=== PATIENT | female | born 1955 | race Caucasian/White ===

== ENCOUNTER 2016-12-23 16:53 | Inpatient (IN) | payer MEDICARE, OTHER ==
[~2016-12-23] VITALS: Ht 154.9 cm; Wt 75.0 kg
[~2016-12-23 16:53] MED LIST changes: -ALEN70TA5 PO; -DIPH25TA64 PO; -EZET10TA26 PO; -IOHEXOL 240 MG/ML 50ML VIAL. ONE; -IOHEXOL 300 MG/ML 75 ML VIAL. IV ONE; -LEVO500T59 PO; -LOSA50TA6 PO; -METR500T PO; -PANT40TA5 PO; -POTA8TAB PO; -SODI44SP NS; -VARE1TAB21 PO
[2016-12-23 18:17] VITALS: BP 116/67
[2016-12-23 18:20] VITALS: BP 116/67
[2016-12-23 18:46] LABS: ALBUMIN 3.3 g/dL (3.4-5.0); CALCIUM 8.7 mg/dL (8.5-10.1); CREATININE 0.9 mg/dL (0.6-1.0); GFR 63.2; POTASSIUM 3.5 mmol/L (3.5-5.1); TOTAL BILIRUBIN 0.2 mg/dL (0.2-1.0); TOTAL PROTEIN 6.6 g/dL (6.4-8.2)
[2016-12-23 18:50] LABS: BASO # 0.1 x10^3/uL (0.0-0.2); BASO % 1 % (0-3); EOS # 0.2 x10^3/uL (0.0-0.7); EOS % 3 % (0-3); HEMATOCRIT 38.5 % (36.0-47.0); HEMOGLOBIN 12.9 g/dL (12.0-15.5); LYMPH # 2.3 x10^3/uL (1.0-4.8); LYMPH % 35 % (24-48); MEAN CORPUSCULAR HEMOGLOBIN 33 pg (25-35); MEAN CORPUSCULAR HGB CONC 33 g/dL (31-37); MEAN CORPUSCULAR VOLUME 100 fL (79-100); MONO # 0.5 x10^3/uL (0.0-1.1); MONO % 8 % (0-9); NEUT # 3.4 x10^3uL (1.8-7.7); NEUT % 53 % (31-73); PLATELET COUNT 287 x10^3/uL (140-400); RED BLOOD COUNT 3.87 x10^6/uL (3.50-5.40); RED CELL DISTRIBUTION WIDTH 15.9 % (11.5-14.5); WHITE BLOOD COUNT 6.4 x10^3/uL (4.0-11.0)
[2016-12-23] MEDS ORDERED: PANT40TA5 PO (20:29)
[2016-12-23] MEDS ORDERED: ALEN70TA5 PO (20:37)
[2016-12-23] MEDS ORDERED: LOSA50TA6 PO (20:37)
[2016-12-23] MEDS ORDERED: VARE1TAB21 PO (20:37)
[2016-12-23] MEDS ORDERED: SODI44SP NS (20:37)
[2016-12-23] MEDS ORDERED: DIPH25TA64 PO (20:37)
[2016-12-23] MEDS ORDERED: EZET10TA26 PO (20:43)
[2016-12-23] MEDS: PRIMIDONE 50 MG TABLET PO SCH (21:00)
[2016-12-23] MEDS: diazePAM 5 MG TABLET PO SCH (21:00)
[2016-12-23] MEDS ORDERED: CYCLOBENZAPRINE 10 MG TABLET. PO PRN (21:00)
[2016-12-23] MEDS: KETOTIFEN FUMARATE 0.025% OPHT SOLUTION BOTTLE. OU SCH (21:00)
[2016-12-23] MEDS ORDERED: BENZONATATE 100 MG CAPSULE. PO PRN (21:00)
[2016-12-23] MEDS ORDERED: ALBUTEROL SULFATE 8GM INHALER. IH PRN (21:00)
[2016-12-23] MEDS ORDERED: SODIUM CHLORIDE 0.65% NASAL SPRAY 45ML BOTTLE. NS PRN (21:00)
[2016-12-23] MEDS ORDERED: ALBUTEROL SULFATE 2.5 MG/3 ML NEBU. NEB PRN (21:15)
[2016-12-23] MEDS: ENOXAPARIN 40 MG/0.4 ML DISP.SYRIN. SQ SCH (21:22)
[2016-12-23] MEDS: HYDROmorphone PF 2 MG/ML VIAL IV PRN (21:23)
[2016-12-23] MEDS: GABAPENTIN 300 MG CAPSULE. PO SCH (21:24)
--- NOTE | 2016-12-23 22:46 | RAD ---
CT HEAD WO CONTRAST dated 12/23/2016 10:49 PM Indication: Headache.Sent previous CT Head from 05/2014 for comparison, headache. Comparison: None Technique: Contiguous axial imaging the head was performed from skull base to vertex. One or more of the following individualized dose reduction techniques were utilized for this examination: 1. Automated exposure control 2. Adjustment of the mA and/or kV according to patient size 3. Use of iterative reconstruction technique Findings: Ventricles and sulci are within normal limits for age. No midline shift or mass effect. Brain parenchyma is of normal attenuation. No hemorrhage or extra-axial collection. Posterior fossa and brainstem unremarkable. Visualized paranasal sinuses and mastoid air cells are clear. No apparent calvarial abnormality. IMPRESSION: No evidence of acute intracranial abnormality. Electronically signed by: Huseyin Ferguson MD (12/23/2016 10:43 PM) [facility]
[2016-12-23 23:27] VITALS: BP 117/71
[2016-12-24] MEDS: HYDROmorphone PF 2 MG/ML VIAL IV PRN ×2 (02:41→06:34)
[2016-12-24] MEDS ORDERED: ONDANSETRON ODT 4 MG TAB.RAPDIS PO PRN (02:45)
[2016-12-24 03:00] VITALS: BP 109/75
[2016-12-24] MEDS ORDERED: IPRATRPIUM/ALBUTEROL 0.5/2.5MG 3 ML NEBU. ONE (05:14)
[2016-12-24] MEDS: LEVOTHYROXINE 88 MCG TABLET PO SCH (05:19)
[2016-12-24] MEDS: ACETAMINOPHEN 325 MG TABLET PO PRN (05:28)
[2016-12-24] MEDS ORDERED: PNEUMOCOCCAL VAX SCREEN. MC PRN (05:30)
[2016-12-24] MEDS ORDERED: Influenza vaccine per PROTOCOL. MC PRN (05:30)
[2016-12-24 05:53] VITALS: BP 130/89
[2016-12-24] MEDS: IPRATRPIUM/ALBUTEROL 0.5/2.5MG 3 ML NEBU. NEB SCH ×5 (05:53→22:39)
[2016-12-24 06:48] LABS: BACTERIA,URINE MOD /HPF (0-FEW); BILIRUBIN,URINE NEG (NEG); CLARITY,URINE CLOUDY; COLOR,URINE YELLOW; GLUCOSE,URINE NEG (NEG); NITRITE,URINE NEG (NEG); SQUAMOUS EPITHELIAL CELL,UR MOD /LPF; UROBILINOGEN,URINE 0.2 mg/dL (0.2 mg/dL)
[2016-12-24 06:49] LABS: HYALINE CASTS, URINE OCC /HPF; YEAST,URINE PRESENT /HPF
[2016-12-24] MEDS: PANTOPRAZOLE 40 MG TABLET. PO SCH (07:30)
[2016-12-24] MEDS: diazePAM 5 MG TABLET PO SCH ×3 (09:00→21:00)
[2016-12-24] MEDS ORDERED: FLU VACC QS2017-18 (36MOS+)/PF 0.5 ML SYRINGE. VAX IM ONE ×2 (09:00)
[2016-12-24] MEDS ORDERED: PNEUMOC CONJ VACC 23-VALENT 0.5 ML VIAL. VAX IM ONE ×2 (09:00)
[2016-12-24] MEDS: PRIMIDONE 50 MG TABLET PO SCH ×3 (09:00→21:00)
[2016-12-24] MEDS ORDERED: VARENICLINE 1 MG TABLET. PO SCH (09:00)
[2016-12-24] MEDS ORDERED: NON FORMULARY ITEM (Tiotropium Bromide (Spiriva) 18 MCG) IH SCH (09:00)
[2016-12-24] MEDS ORDERED: LOSARTAN 50 MG TABLET. PO SCH (09:00)
[2016-12-24] MEDS: GABAPENTIN 300 MG CAPSULE. PO SCH ×3 (09:00→21:00)
[2016-12-24] MEDS: KETOTIFEN FUMARATE 0.025% OPHT SOLUTION BOTTLE. OU SCH ×2 (09:48→20:56)
[2016-12-24] MEDS: IV DEXTROSE 5 %-0.45 % NACL 1,000 ML IV SCH ×2 (10:31→20:43)
[2016-12-24] MEDS: ONDANSETRON PF 4 MG/2 ML VIAL. IV PRN (10:32)
--- NOTE | 2016-12-24 10:41 | RAD ---
Abdomen, 2 views, 12/24/2016: History: Abdominal pain, abnormal CT exam Contrast material from yesterday's CT study has passed into the right colon. The abdominal gas pattern is unremarkable. There is no evidence of organomegaly. No free air is seen in the abdomen. There is mild atelectasis in the lung bases. IMPRESSION: No acute abdominal abnormality is detected.
[2016-12-24 10:54] VITALS: BP 103/65
[2016-12-24] MEDS ORDERED: METHYLNALTREXONE 12 MG/0.6 ML VIAL. SQ ONE (11:00)
[2016-12-24 15:26] VITALS: BP 142/83
[2016-12-24] MEDS: PROMETHAZINE 12.5 MG in IV NORMAL SALINE 50ML 50 ML IV PRN ×2 (16:15→22:26)
[2016-12-24 20:22] VITALS: BP 121/74
[2016-12-24] MEDS: ENOXAPARIN 40 MG/0.4 ML DISP.SYRIN. SQ SCH (20:56)
[2016-12-24] MEDS: TAMSULOSIN 0.4 MG CAP.ER.24H. PO SCH (21:00)
[2016-12-24 22:13] LABS: SODIUM, URINE <60 mmol/L (Not Estab.); UR POTASSIUM 74.2 mmol/L (Not Estab.)
[2016-12-24] MEDS ORDERED: PROMETHAZINE 25 MG/ML VIAL IV ONE (22:15)
[2016-12-24 23:20] VITALS: BP 144/72
--- NOTE | 2016-12-25 01:55 | PN ---
DATE: SUBJECTIVE: A 61-year-old female in with severe diverticulitis of the left lower quadrant. The patient is resting fairly comfortably, but still in quite a bit of pain. The patient's KUB this morning was basically unremarkable for obstruction and she did have some nausea and not passing any gas. OBJECITVE: VITAL SIGNS: The patient's blood pressures 103/65, respiratory rate 20, pulse 100, afebrile. GENERAL: The patient is alert and oriented. LUNGS: Diminished, but clear. CARDIOVASCULAR: Regular sinus rhythm. ABDOMEN: Soft, but there is definite guarding to that left lower quadrant, severe tenderness noted. ASSESSMENT AND PLAN: The patient continues on IV antibiotic therapy and we will continue with evaluation for this severe diverticulitis. Initially when she was in the office, her heart rate was up over 120 ____ she does have guarding in that area of her left lower quadrant. TRUDI CORDERO MD DR: TANISHA/silas JOB#: [id number] / [id number]
[2016-12-25] MEDS: HYDROmorphone PF 2 MG/ML VIAL IV PRN ×3 (02:35→20:45)
[2016-12-25] MEDS: IV DEXTROSE 5 %-0.45 % NACL 1,000 ML IV SCH ×2 (05:26→18:33)
[2016-12-25] MEDS: LEVOTHYROXINE 88 MCG TABLET PO SCH (05:32)
[2016-12-25] MEDS ORDERED: PROMETHAZINE 25 MG/ML VIAL IV ONE (05:48)
[2016-12-25] MEDS: IPRATRPIUM/ALBUTEROL 0.5/2.5MG 3 ML NEBU. NEB SCH ×3 (05:50→20:00)
[2016-12-25] MEDS: PROMETHAZINE 12.5 MG in IV NORMAL SALINE 50ML 50 ML IV PRN (05:56)
[2016-12-25 05:58] VITALS: BP 133/69
[2016-12-25 06:28] LABS: BASO % 0 % (0-3); EOS # 0.1 x10^3/uL (0.0-0.7); EOS % 2 % (0-3); HEMATOCRIT 32.5 % (36.0-47.0); HEMOGLOBIN 10.9 g/dL (12.0-15.5); LYMPH # 1.6 x10^3/uL (1.0-4.8); LYMPH % 37 % (24-48); MEAN CORPUSCULAR HEMOGLOBIN 34 pg (25-35); MEAN CORPUSCULAR HGB CONC 34 g/dL (31-37); MEAN CORPUSCULAR VOLUME 100 fL (79-100); MONO # 0.4 x10^3/uL (0.0-1.1); MONO % 9 % (0-9); NEUT # 2.3 x10^3uL (1.8-7.7); NEUT % 52 % (31-73); PLATELET COUNT 243 x10^3/uL (140-400); RED BLOOD COUNT 3.24 x10^6/uL (3.50-5.40); RED CELL DISTRIBUTION WIDTH 15.6 % (11.5-14.5); WHITE BLOOD COUNT 4.4 x10^3/uL (4.0-11.0)
[2016-12-25 06:35] LABS: CALCIUM 8.4 mg/dL (8.5-10.1); CREATININE 0.8 mg/dL (0.6-1.0); GFR 72.4; POTASSIUM 3.7 mmol/L (3.5-5.1)
[2016-12-25] MEDS: PANTOPRAZOLE 40 MG TABLET. PO SCH (07:30)
[2016-12-25] MEDS: ONDANSETRON PF 4 MG/2 ML VIAL. IV PRN (08:59)
[2016-12-25] MEDS: GABAPENTIN 300 MG CAPSULE. PO SCH ×3 (09:00→21:00)
[2016-12-25] MEDS: diazePAM 5 MG TABLET PO SCH ×3 (09:00→21:00)
[2016-12-25] MEDS: PRIMIDONE 50 MG TABLET PO SCH ×3 (09:00→21:00)
[2016-12-25] MEDS: KETOTIFEN FUMARATE 0.025% OPHT SOLUTION BOTTLE. OU SCH ×2 (09:00→20:44)
[2016-12-25] MEDS: PROCHLORPERAZINE 10 MG/2 ML VIAL. IV PRN ×2 (10:56→18:39)
[2016-12-25] MEDS ORDERED: ENOXAPARIN 40 MG/0.4 ML DISP.SYRIN. SQ SCH (11:00)
[2016-12-25] MEDS: MEROPENEM 1 GM in IV NORMAL SALINE 100ML 100 ML IV SCH ×2 (12:07→20:46)
[2016-12-25 12:28] VITALS: BP 94/55
[2016-12-25 12:50] VITALS: BP 94/61
[2016-12-25 14:42] VITALS: BP 102/64
[2016-12-25 20:10] VITALS: BP 151/83
[2016-12-25] MEDS: ENOXAPARIN 40 MG/0.4 ML DISP.SYRIN. SQ SCH (20:46)
[2016-12-25] MEDS: TAMSULOSIN 0.4 MG CAP.ER.24H. PO SCH (21:00)
[2016-12-25] MEDS ORDERED: ENOXAPARIN ** NOTE DOSE ** SYRINGE SQ SCH (21:00)
[2016-12-25 22:51] VITALS: BP 130/80
--- NOTE | 2016-12-26 00:46 | PN ---
DATE: 12/25/2016 SUBJECTIVE: The patient with severe colitis, diverticulitis of her descending sigmoid area. The patient otherwise seems to be resting fairly comfortable, a little bit better today, although she does not seem to be making as good progress as I would like to see. Consequently, I will go ahead and change her from Levaquin to meropenem. She is on meropenem 1 gram q.12h., discontinue the Levaquin. Otherwise, she has no complaints. Nausea is under better control, so I tried her on Compazine. OBJECTIVE: VITAL SIGNS: Blood pressure 130/70, respiratory rate 18, pulse is still in the low 100 to 110, she is afebrile. LUNGS: Clear. CARDIOVASCULAR: Regular sinus rhythm. ABDOMEN: Soft, diffuse tenderness in the left lower quadrant area, but no rebound noted. She has slight guarding. We will continue to try her on meropenem along with the Flagyl. IMPRESSION: Diverticulitis of the left lower quadrant, severe with nausea. Continue to monitor the patient accordingly on that issue as well. TRUDI CORDERO MD DR: TANISHA/silas JOB#: [id number] / [id number]
[2016-12-26] MEDS: IV DEXTROSE 5 %-0.45 % NACL 1,000 ML IV SCH ×3 (02:00→20:29)
[2016-12-26] MEDS: HYDROmorphone PF 2 MG/ML VIAL IV PRN (02:17)
[2016-12-26] MEDS: MEROPENEM 1 GM in IV NORMAL SALINE 100ML 100 ML IV SCH ×3 (03:24→20:23)
[2016-12-26] MEDS: PROCHLORPERAZINE 10 MG/2 ML VIAL. IV PRN ×2 (05:24→11:50)
[2016-12-26] MEDS: LEVOTHYROXINE 88 MCG TABLET PO SCH (05:24)
[2016-12-26 05:33] VITALS: BP 160/92
[2016-12-26] MEDS: IPRATRPIUM/ALBUTEROL 0.5/2.5MG 3 ML NEBU. NEB SCH ×4 (05:33→20:58)
[2016-12-26] MEDS: PANTOPRAZOLE 40 MG TABLET. PO SCH (07:30)
[2016-12-26 08:34] LABS: HEMATOCRIT 37.2 % (36.0-47.0); HEMOGLOBIN 12.6 g/dL (12.0-15.5); RED BLOOD COUNT 3.77 x10^6/uL (3.50-5.40); RED CELL DISTRIBUTION WIDTH 15.4 % (11.5-14.5); WHITE BLOOD COUNT 3.5 x10^3/uL (4.0-11.0)
[2016-12-26 08:40] LABS: CALCIUM 8.5 mg/dL (8.5-10.1); CREATININE 0.7 mg/dL (0.6-1.0); GFR 84.5; POTASSIUM 3.4 mmol/L (3.5-5.1)
[2016-12-26] MEDS: PRIMIDONE 50 MG TABLET PO SCH ×4 (09:00→20:24)
[2016-12-26] MEDS: KETOTIFEN FUMARATE 0.025% OPHT SOLUTION BOTTLE. OU SCH ×2 (09:00→20:24)
[2016-12-26] MEDS: diazePAM 5 MG TABLET PO SCH ×3 (09:00→20:24)
[2016-12-26] MEDS: GABAPENTIN 300 MG CAPSULE. PO SCH ×3 (09:00→20:24)
[2016-12-26 10:52] VITALS: BP 159/89
[2016-12-26 15:23] VITALS: BP 162/95
[2016-12-26 19:54] VITALS: BP 140/86
--- NOTE | 2016-12-26 19:56 | PN ---
DATE: 12/26/2016 SUBJECTIVE: The patient is a 61-year-old female with severe sigmoid diverticulitis. The patient is resting fairly comfortably, making fairly good progress overall. Pulse still around 100-0105. OBJECTIVE: VITAL SIGNS: Blood pressure 160/90, respiratory rate 20, . GENERAL: Says she is feeling better and looking better overall. LUNGS: Clear. CARDIOVASCULAR: Stable. ABDOMEN: Soft, diffuse tenderness in that left lower quadrant, still a little bit of guarding, but markedly improved. PLAN: We will go ahead and continue on IV antibiotic therapy and make further evaluation on her as indicated. IMPRESSION: Diverticulosis of the sigmoid colon, severe nausea. Continue with IV antibiotic therapy. TRUDI CORDERO MD DR: TANISHA/silas JOB#: [id number] / [id number]
[2016-12-26] MEDS: ENOXAPARIN 40 MG/0.4 ML DISP.SYRIN. SQ SCH (20:24)
[2016-12-26] MEDS: TAMSULOSIN 0.4 MG CAP.ER.24H. PO SCH (20:24)
[2016-12-26 23:28] VITALS: BP 140/70
[2016-12-27] MEDS: MEROPENEM 1 GM in IV NORMAL SALINE 100ML 100 ML IV SCH ×3 (04:11→20:00)
[2016-12-27] MEDS: LEVOTHYROXINE 88 MCG TABLET PO SCH (05:24)
[2016-12-27] MEDS: IPRATRPIUM/ALBUTEROL 0.5/2.5MG 3 ML NEBU. NEB SCH ×4 (05:28→21:00)
[2016-12-27 05:46] VITALS: BP 144/79
[2016-12-27] MEDS: KETOTIFEN FUMARATE 0.025% OPHT SOLUTION BOTTLE. OU SCH ×2 (08:21→20:56)
[2016-12-27] MEDS: PANTOPRAZOLE 40 MG TABLET. PO SCH (08:22)
[2016-12-27] MEDS: PRIMIDONE 50 MG TABLET PO SCH ×3 (08:22→20:59)
[2016-12-27] MEDS: diazePAM 5 MG TABLET PO SCH ×3 (08:22→20:56)
[2016-12-27] MEDS: GABAPENTIN 300 MG CAPSULE. PO SCH ×3 (08:24→20:56)
[2016-12-27] MEDS: ACETAMINOPHEN 325 MG TABLET PO PRN (08:45)
[2016-12-27 08:52] LABS: BASO % 1 % (0-3); EOS % 1 % (0-3); HEMATOCRIT 36.4 % (36.0-47.0); HEMOGLOBIN 12.6 g/dL (12.0-15.5); LYMPH # 0.7 x10^3/uL (1.0-4.8); LYMPH % 21 % (24-48); MEAN CORPUSCULAR HEMOGLOBIN 34 pg (25-35); MEAN CORPUSCULAR HGB CONC 35 g/dL (31-37); MEAN CORPUSCULAR VOLUME 99 fL (79-100); MONO # 0.3 x10^3/uL (0.0-1.1); MONO % 8 % (0-9); NEUT # 2.4 x10^3uL (1.8-7.7); NEUT % 70 % (31-73); PLATELET COUNT 254 x10^3/uL (140-400); RED BLOOD COUNT 3.69 x10^6/uL (3.50-5.40); RED CELL DISTRIBUTION WIDTH 15.2 % (11.5-14.5); WHITE BLOOD COUNT 3.5 x10^3/uL (4.0-11.0)
[2016-12-27 09:05] LABS: CALCIUM 8.7 mg/dL (8.5-10.1); CREATININE 0.7 mg/dL (0.6-1.0); GFR 84.5
[2016-12-27 11:03] VITALS: BP 172/95
--- NOTE | 2016-12-27 11:51 | PN ---
DATE: SUBJECTIVE: A 61-year-old female with severe diverticulitis of the colon. The patient is resting fairly comfortably, making good progress overall. she has diverticulitis, but in any case, the patient is resting fairly comfortably today, pulse is still in the low 100s. OBJECTIVE: VITAL SIGNS: Blood pressure 140/80, temperature 98.4, respiratory rate 16. LUNGS: Clear. CARDIOVASCULAR: Stable. ABDOMEN: Soft. There is very faint tenderness, but still tenderness in that left lower quadrant on palpation, mild guarding, but improved. The patient will continue to be monitored. The blood count looks good. Chemistry low potassium of 3, we will supplement that and we will make further evaluation on that as possible. IMPRESSION: Diverticulitis of the sigmoid colon and will continue to be monitored on IV antibiotic therapy. Hypokalemia, sinus tachycardia, hypertension. Continue on medications. Advance diet, make further evaluation on her as indicated. TRUDI CORDERO MD DR: TANISHA/silas JOB#: [id number] / [id number]
[2016-12-27] MEDS: POTASSIUM CHLORIDE 8 MEQ TABLET.ER. PO SCH ×2 (12:13→20:56)
[2016-12-27 15:16] VITALS: BP 135/82
[2016-12-27 20:31] VITALS: BP 158/70
[2016-12-27] MEDS: TAMSULOSIN 0.4 MG CAP.ER.24H. PO SCH (20:56)
[2016-12-27] MEDS: ENOXAPARIN 40 MG/0.4 ML DISP.SYRIN. SQ SCH (20:56)
[2016-12-27] MEDS: LACTOBACILLUS RHAMNOSUS GG 1 CAPSULE. PO SCH (20:56)
[2016-12-27] MEDS: metroNIDAZOLE 500 MG TABLET PO SCH (20:57)
[2016-12-27] MEDS ORDERED: levoFLOXacin 500 MG TABLET PO SCH (21:00)
[2016-12-28] MEDS: LEVOTHYROXINE 88 MCG TABLET PO SCH (05:08)
[2016-12-28] MEDS: metroNIDAZOLE 500 MG TABLET PO SCH (05:08)
[2016-12-28] MEDS: IPRATRPIUM/ALBUTEROL 0.5/2.5MG 3 ML NEBU. NEB SCH (05:20)
[2016-12-28 06:31] VITALS: BP 126/69
[2016-12-28] MEDS: ACETAMINOPHEN 325 MG TABLET PO PRN (07:07)
[2016-12-28 07:22] LABS: BASO % 1 % (0-3); CALCIUM 8.8 mg/dL (8.5-10.1); CREATININE 0.7 mg/dL (0.6-1.0); EOS # 0.1 x10^3/uL (0.0-0.7); EOS % 2 % (0-3); GFR 84.5; HEMATOCRIT 35.3 % (36.0-47.0); LYMPH # 1.2 x10^3/uL (1.0-4.8); LYMPH % 31 % (24-48); MEAN CORPUSCULAR HEMOGLOBIN 34 pg (25-35); MEAN CORPUSCULAR HGB CONC 34 g/dL (31-37); MEAN CORPUSCULAR VOLUME 99 fL (79-100); MONO # 0.4 x10^3/uL (0.0-1.1); MONO % 12 % (0-9); NEUT # 2.1 x10^3uL (1.8-7.7); NEUT % 55 % (31-73); PLATELET COUNT 261 x10^3/uL (140-400); POTASSIUM 3.1 mmol/L (3.5-5.1); RED BLOOD COUNT 3.56 x10^6/uL (3.50-5.40); RED CELL DISTRIBUTION WIDTH 15.6 % (11.5-14.5); WHITE BLOOD COUNT 3.8 x10^3/uL (4.0-11.0)
[2016-12-28] MEDS ORDERED: POTA8TAB PO (08:04)
[2016-12-28] MEDS ORDERED: METR500T PO (08:04)
[2016-12-28] MEDS ORDERED: LEVO500T59 PO (08:04)
[2016-12-28] MEDS: PANTOPRAZOLE 40 MG TABLET. PO SCH (08:15)
[2016-12-28] MEDS: LACTOBACILLUS RHAMNOSUS GG 1 CAPSULE. PO SCH (08:16)
[2016-12-28] MEDS: PRIMIDONE 50 MG TABLET PO SCH (08:16)
[2016-12-28] MEDS: diazePAM 5 MG TABLET PO SCH (08:16)
[2016-12-28] MEDS: GABAPENTIN 300 MG CAPSULE. PO SCH (08:16)
[2016-12-28] MEDS: KETOTIFEN FUMARATE 0.025% OPHT SOLUTION BOTTLE. OU SCH (08:17)
[2016-12-28] MEDS: POTASSIUM CHLORIDE 8 MEQ TABLET.ER. PO SCH (08:17)
--- NOTE | 2016-12-28 09:59 | DS ---
DATE OF DISCHARGE: HOSPITAL COURSE: The patient seen initially in the office with severe abdominal pain. The patient was brought into the hospital. Imaging done as an outpatient demonstrated severe diverticulitis. She was admitted to the hospital for further evaluation, acute distal descending diverticulitis was noted. The patient was admitted and placed on IV antibiotic therapy. The patient had significant pain in that left lower quadrant area and required IV meropenem as well as Flagyl. The patient made good progress during the rest of her hospitalization and there were no complications noted. Potassium was on the low side, and she will be given additional potassium as an outpatient. Otherwise, she eventually made good progress. She will need some additional potassium as an outpatient and continue to be monitored carefully. IMPRESSION: Diverticulitis of the descending colon, hypokalemia. She will be on a low fiber diet for 2 weeks. High fiber diet. Follow up in the clinic and possible colonoscopy in 7-10 days or sooner as needed. Decreased activity. MRAD. TRUDI CORDERO MD DR: TANISHA/silas JOB#: [id number] / [id number]
== END 2016-12-28 09:15 | disposition home or self-care (01) | DRG 392 ==
LOC: 1 SOUTH 17:46
PROVIDERS: ADMIT Family Medicine; ATTEND Family Medicine
DX: K57.32 Diverticulitis of large intestine without perforation or abscess without bleeding (principal); E87.6 Hypokalemia; I10 Essential (primary) hypertension; K52.9 Noninfective gastroenteritis and colitis, unspecified
CPT/HCPCS: 36415; 70450; 74020; 74177; 80048; 80053; 81001; 82150; 82436; 83605; 83690; 84133; 84300; 85025; 85027; 87040; 87086; 90686; 90732; 94640; 94760; 99406; J0780; J1170; J1650; J1956; J2185; J2212; J2405; J2550; J3490; J7620; Q0162; Q9966; Q9967

== ENCOUNTER → 2016-12-23 | Outpatient (CLI) | payer MEDICARE, OTHER ==
[2015-07-27 14:07] VITALS: BP 97/70
[~2016-12-23] MED LIST: ALBU2.5V5 NEB; ALBU6.7H IH; ALEN70TA5 PO; AZIT250T PO; BENZ100C PO; CETI10TA16 PO; CHOL200074 PO; CIPR250T30 PO; CRESTOR10 MG PO; CYCL-331 PO; DIAZ5TAB4 PO; DIPH25TA64 PO; DOXY100T PO; ESTR1TAB15 PO; EZET10TA26 PO; FLUT1DIS3 IH; GABA-586 PO; HYDR-2679 PO; IOHEXOL 240 MG/ML 50ML VIAL. ONE; IOHEXOL 300 MG/ML 75 ML VIAL. IV ONE; IPRA3AMP IH; LATA2.5D3 EACHEYE; LEVO25TA4 PO; LEVO500T59 PO; LEVO88TA4 PO; LORA10TA3 PO; LOSA100T6 PO; LOSA1TAB25 PO; LOSA50TA6 PO; METH4TAB6 PO; METR500T PO; NEBU1KIT3 MC; NYST1000 PO; OLOP2.5D OU; OMEG1CAP16 PO; OMEP-203 PO; OMEP20CA9 PO; PANT40TA5 PO; POTA8TAB PO; PRED20TA PO; PRIM50TA PO; PROM118S2 PO; SODI44SP NS; SULF1TAB24 PO; TIOT18CA IH; TRAM50TA PO; VARE1TAB21 PO; [UNRECOGNIZED DRUG - CODE] IJ
--- NOTE | 2016-12-23 14:37 | RAD ---
CT abdomen and pelvis with contrast 12/23/2016 Clinical indication: Pelvic pain. Comparison: CTA abdomen 07/26/2014. Technique: Multiple CT images of the abdomen and pelvis were obtained following the intravenous administration of 75 mL Omnipaque 300. PQRS Compliance Statement: One or more of the following individualized dose reduction techniques were utilized for this examination: 1. Automated exposure control 2. Adjustment of the mA and/or kV according to patient size 3. Use of iterative reconstruction technique Findings: Abdomen and pelvis: Heart size is normal. Visualized lung bases are clear. Liver, spleen, gallbladder, adrenal glands and kidneys are unremarkable. There is mild fatty atrophy of the pancreas. No bile duct dilatation. Abdominal aorta is normal in caliber with moderate aortoiliac calcified atheromatous disease. There is a focal outpouching of the distal left abdominal aorta best appreciated on coronal series 3/image 25. Major portal, splenic and visualized mesenteric veins are patent. No retroperitoneal or mesenteric lymphadenopathy. No abdominal free fluid. No bowel obstruction. There is mild descending and sigmoid diverticulosis with stranding and edema adjacent to a diverticula the distal descending colon. No drainable pericolonic fluid collection. No pneumoperitoneum. Urinary bladder unremarkable. Prior hysterectomy with the vaginal cuff unremarkable. There are no destructive osseous lesions. Impression: 1. Acute distal descending diverticulitis. No pericolonic drainable abscess or pneumoperitoneum. 2. Normal caliber abdominal aorta with diffuse aortoiliac calcified atheromatous disease and unchanged outpouching of the distal aspect, likely penetrating atherosclerotic ulcer.
== END | disposition home or self-care (01) ==
LOC: US 13:06
PROVIDERS: ATTEND Nurse Practitioner Family
DX: K57.32 Diverticulitis of large intestine without perforation or abscess without bleeding (principal); I10 Essential (primary) hypertension; I70.0 Atherosclerosis of aorta; F17.200 Nicotine dependence, unspecified, uncomplicated; Z90.710 Acquired absence of both cervix and uterus
CPT/HCPCS: 74177; Q9966; Q9967

== ENCOUNTER → 2017-04-01 | Day surgery (SDC) | payer MEDICARE, OTHER ==
[~2017-04-01] MED LIST changes: +ALEN70TA5 PO; +DIPH25TA64 PO; +EZET10TA26 PO; +IV RINGERS SOLUTION,LACTATED 1,000 ML BAG. IV ONE; +IV RINGERS SOLUTION,LACTATED 1,000 ML IV ONE; +LEVO500T59 PO; +LIDOCAINE 2% PF Vial for OR 5 ML VIAL. ONE; +LOSA50TA6 PO; +METR500T PO; +PANT40TA5 PO; +POTA8TAB PO; +PROPOFOL 20 ML IV ONE; +SODI44SP NS; +VARE1TAB21 PO
[2017-04-01 13:00] VITALS: BP 147/77
== END | disposition home or self-care (01) ==
LOC: SURG 10:09
PROVIDERS: ATTEND Internal Medicine Gastroenterology
DX: K29.70 Gastritis, unspecified, without bleeding (principal); K57.10 Diverticulosis of small intestine without perforation or abscess without bleeding; E55.9 Vitamin D deficiency, unspecified; J44.9 Chronic obstructive pulmonary disease, unspecified; G43.909 Migraine, unspecified, not intractable, without status migrainosus; I10 Essential (primary) hypertension; G47.39 Other sleep apnea; Z98.890 Other specified postprocedural states; Z68.30 Body mass index [BMI] 30.0-30.9, adult; Z88.6 Allergy status to analgesic agent; Z88.0 Allergy status to penicillin; Z88.8 Allergy status to other drugs, medicaments and biological substances; Z90.710 Acquired absence of both cervix and uterus
CPT/HCPCS: 43235; 43239; J2704; J3010; J7120; J2001

== ENCOUNTER → 2017-05-19 | Outpatient (CLI) | payer MEDICARE, OTHER ==
[2017-04-01 13:00] VITALS: BP 147/77
[~2017-05-19] MED LIST changes: +IOHEXOL 240 MG/ML 50ML VIAL. ONE; -IV RINGERS SOLUTION,LACTATED 1,000 ML BAG. IV ONE; -IV RINGERS SOLUTION,LACTATED 1,000 ML IV ONE; -LIDOCAINE 2% PF Vial for OR 5 ML VIAL. ONE; -PROPOFOL 20 ML IV ONE
[2017-05-19] MEDS: IOHEXOL 300 MG/ML 75 ML VIAL. IV ONE (11:20)
[2017-05-19] MEDS: IOHEXOL 240 MG/ML 50ML VIAL. PO ONE (11:20)
--- NOTE | 2017-05-19 11:36 | RAD ---
CT of the abdomen and pelvis with IV contrast. Indication: Gastritis with bleeding. Comparison study: CT of the abdomen and pelvis with contrast December 23, 2016. Technique: Multidetector CT imaging of the abdomen and pelvis was performed following the administration of IV and oral contrast. Findings: Visualized lung bases are unremarkable. Liver and gallbladder are unremarkable. The adrenal glands are within normal limits. Spleen is within normal limits. The bilateral kidneys are grossly unremarkable. The pancreas is atrophic in appearance is unremarkable. No significant gastric wall thickening is identified. Contrast traverses the stomach into the small bowel. There is no evidence of bowel obstruction. No acute inflammatory changes are appreciated. No free fluid or free air is seen in the abdomen or pelvis. Distal colonic diverticulosis is noted. Enteric contrast did not reach the large bowel. The bladder is grossly unremarkable. Hysterectomy noted. No evidence of acute osseous abnormality is identified. Impression: No evidence of acute intra-abdominal abnormality is identified. PQRS Compliance Statement: One or more of the following individualized dose reduction techniques were utilized for this examination: 1. Automated exposure control 2. Adjustment of the mA and/or kV according to patient size 3. Use of iterative reconstruction technique
== END | disposition home or self-care (01) ==
LOC: CT 10:05
PROVIDERS: ATTEND Family Medicine
DX: G25.0 Essential tremor (principal); K29.01 Acute gastritis with bleeding; K57.30 Diverticulosis of large intestine without perforation or abscess without bleeding; I10 Essential (primary) hypertension; Z87.891 Personal history of nicotine dependence
CPT/HCPCS: 74177; Q9966; Q9967

== ENCOUNTER → 2017-06-03 | Day surgery (SDC) | payer MEDICARE, OTHER ==
[~2017-06-03] MED LIST changes: +ALBUTEROL SULFATE 2.5 MG/3 ML NEBU. NEB PRN; +ATROPINE 0.5 MG/5 ML DISP.SYRIN. IV PRN; +ERYT250C8 PO; -IOHEXOL 240 MG/ML 50ML VIAL. ONE; +IV RINGERS SOLUTION,LACTATED 1,000 ML IV SCH; +LIDOCAINE 2% PF Vial for OR 5 ML VIAL. ONE; +MELO7.5T29 PO; +NALOXONE 0.4 MG/ML VIAL. IV PRN; +ONDANSETRON PF 4 MG/2 ML VIAL. IV PRN; +PROPOFOL 0 ML IV ONE; +PROPOFOL 20 ML IV ONE; +diphenhydrAMINE 50 MG/ML VIAL IV PRN
[2017-06-03 11:30] VITALS: BP 131/81
== END | disposition home or self-care (01) ==
LOC: SURG 08:41
PROVIDERS: ATTEND Internal Medicine Gastroenterology
DX: K57.30 Diverticulosis of large intestine without perforation or abscess without bleeding (principal); K64.8 Other hemorrhoids; I10 Essential (primary) hypertension; G43.909 Migraine, unspecified, not intractable, without status migrainosus; Z87.891 Personal history of nicotine dependence; J44.9 Chronic obstructive pulmonary disease, unspecified; M79.7 Fibromyalgia; Z87.19 Personal history of other diseases of the digestive system; Z88.8 Allergy status to other drugs, medicaments and biological substances; Z72.89 Other problems related to lifestyle; Z88.0 Allergy status to penicillin; Z90.710 Acquired absence of both cervix and uterus; Z98.890 Other specified postprocedural states; Z79.899 Other long term (current) drug therapy
CPT/HCPCS: 45380; J2704; J7120; 45378; J2001

== ENCOUNTER → 2017-07-07 | Outpatient (CLI) | payer MEDICARE, OTHER ==
[2017-06-03 11:30] VITALS: BP 131/81
[~2017-07-07] MED LIST changes: -ALBUTEROL SULFATE 2.5 MG/3 ML NEBU. NEB PRN; -ATROPINE 0.5 MG/5 ML DISP.SYRIN. IV PRN; -IV RINGERS SOLUTION,LACTATED 1,000 ML IV SCH; -LIDOCAINE 2% PF Vial for OR 5 ML VIAL. ONE; -NALOXONE 0.4 MG/ML VIAL. IV PRN; -ONDANSETRON PF 4 MG/2 ML VIAL. IV PRN; -PROPOFOL 0 ML IV ONE; -PROPOFOL 20 ML IV ONE; +SINCALIDE 1.5 MCG in IV NORMAL SALINE 50ML 30 ML IV ONE; -diphenhydrAMINE 50 MG/ML VIAL IV PRN
--- NOTE | 2017-07-07 14:43 | RAD ---
HEPATOBILIARY SCAN WITH EJECTION FRACTION Indication: Intermittent chronic bloating and abdominal pain Comparison: CT abdomen pelvis May 19, 2017. Procedure: Serial static images are obtained of the liver and biliary system in frontal and right lateral projections following IV administration of 5.5 mCi of 99 M technetium Choletec. After filling the gallbladder, 1.5 mcg of Kinevac was administered intravenously and the gallbladder ejection fraction was measured. Findings: There is homogeneous distribution throughout the liver. There is normal filling of the gallbladder and normal emptying into the biliary system and small bowel. The gallbladder ejection fraction measures 88% (normal gallbladder EF is 35% or greater). Impression: Normal hepatobiliary scan and ejection fraction. Electronically signed by: Huseyin Avila MD (07/07/2017 2:40 PM) [place] [id number]
== END | disposition home or self-care (01) ==
LOC: NM 10:18
PROVIDERS: ATTEND Internal Medicine Gastroenterology
DX: R10.84 Generalized abdominal pain (principal); E55.9 Vitamin D deficiency, unspecified; E78.00 Pure hypercholesterolemia, unspecified; E03.9 Hypothyroidism, unspecified; J44.9 Chronic obstructive pulmonary disease, unspecified
CPT/HCPCS: 78226; 96374; 96375; A9537; J2805

== ENCOUNTER → 2017-07-26 | Outpatient (CLI) | payer OTHER ==
[2017-06-03 11:30] VITALS: BP 131/81
[~2017-07-26] MED LIST changes: -SINCALIDE 1.5 MCG in IV NORMAL SALINE 50ML 30 ML IV ONE
--- NOTE | 2017-07-26 12:21 | RAD ---
CT HEAD INDICATION: AMBLYOPIA, TREMORS COMPARISON: 12/23/2016 TECHNIQUE: 5 mm contiguous axial images were obtained from the skull base to the vertex Exposure: One or more of the following individualized dose reduction techniques were utilized for this examination: 1. Automated exposure control 2. Adjustment of the mA and/or kV according to patient size 3. Use of iterative reconstruction technique FINDINGS: No abnormal attenuation within the brain parenchyma. No evidence of acute intracranial hemorrhage. No extra-axial fluid collections. No mass effect or midline shift. Ventricular size is appropriate. Basal cisterns are patent. No fractures identified.Carnes-white differentiation is preserved.Globes and orbits are within normal limits. Paranasal sinuses and mastoid air cells are clear. IMPRESSION: Unremarkable CT examination of the head without contrast, as above. Specifically, no evidence of an acute intracranial abnormality. Electronically signed by: Gm De La Cruz MD (07/26/2017 12:17 PM) [id number]
== END | disposition home or self-care (01) ==
LOC: CT 11:29
PROVIDERS: ATTEND Family Medicine
DX: G25.0 Essential tremor (principal); G25.2 Other specified forms of tremor; H53.043 Amblyopia suspect, bilateral
CPT/HCPCS: 70450

== ENCOUNTER → 2017-10-15 | Outpatient (CLI) | payer MEDICARE, MEDICAID ==
[2017-06-03 11:30] VITALS: BP 131/81
[~2017-10-15] MED LIST changes: +BUPIVACAINE MPF 0.25% 30 ML VIAL. ONE; +DEXAMETHASONE SOD PHOS 4 MG/ML VIAL ONE; +IOHEXOL 300 MG/ML 50 ML VIAL. ONE; -IPRA3AMP IH; +IPRA3AMP29 IH; +LIDOCAINE 1% PF 30 ML VIAL. ONE; -LOSA100T6 PO; +LOSA100T7 PO; -LOSA50TA6 PO; +LOSA50TA7 PO; -PROM118S2 PO; +PROM118S5 PO
== END | disposition home or self-care (01) ==
LOC: SURG 08:42
PROVIDERS: ATTEND Anesthesiology Pain Medicine
DX: M54.16 Radiculopathy, lumbar region (principal); Z79.2 Long term (current) use of antibiotics; Z79.899 Other long term (current) drug therapy; J44.9 Chronic obstructive pulmonary disease, unspecified; Z72.0 Tobacco use; Z90.710 Acquired absence of both cervix and uterus; Z98.890 Other specified postprocedural states; Z88.0 Allergy status to penicillin; Z88.6 Allergy status to analgesic agent; Z88.8 Allergy status to other drugs, medicaments and biological substances; Z91.018 Allergy to other foods
CPT/HCPCS: 64483; 64484; J1100; J2001; J3490; Q9967

== ENCOUNTER → 2018-01-07 | Outpatient (CLI) | payer MEDICARE, OTHER ==
[2017-06-03 11:30] VITALS: BP 131/81
[~2018-01-07] MED LIST changes: -IOHEXOL 300 MG/ML 50 ML VIAL. ONE; -LOSA50TA7 PO; +LOSA50TA86 PO
== END | disposition home or self-care (01) ==
LOC: SURG 11:50
PROVIDERS: ATTEND Anesthesiology Pain Medicine
DX: M47.816 Spondylosis without myelopathy or radiculopathy, lumbar region (principal); G89.29 Other chronic pain; F11.20 Opioid dependence, uncomplicated; M51.36 Other intervertebral disc degeneration, lumbar region; F41.9 Anxiety disorder, unspecified
CPT/HCPCS: 64493; 64494; J1100; J2001; J3490

== ENCOUNTER → 2018-01-21 | Outpatient (CLI) | payer MEDICARE, MEDICAID ==
[2017-06-03 11:30] VITALS: BP 131/81
[~2018-01-21] MED LIST changes: +ALBU2.5V8 IH; -ALBU6.7H IH; +DEXAMETHASONE SOD PHOS 10 MG/ML VIAL ONE; -DEXAMETHASONE SOD PHOS 4 MG/ML VIAL ONE; +LOSA100T14 PO; -LOSA100T7 PO
== END | disposition home or self-care (01) ==
LOC: SURG 11:57
PROVIDERS: ATTEND Anesthesiology Pain Medicine
DX: M47.816 Spondylosis without myelopathy or radiculopathy, lumbar region (principal); J44.9 Chronic obstructive pulmonary disease, unspecified; Z90.710 Acquired absence of both cervix and uterus; Z88.0 Allergy status to penicillin; Z88.6 Allergy status to analgesic agent; Z72.0 Tobacco use; Z79.2 Long term (current) use of antibiotics; Z79.899 Other long term (current) drug therapy; Z98.890 Other specified postprocedural states; Z88.8 Allergy status to other drugs, medicaments and biological substances; Z91.018 Allergy to other foods
CPT/HCPCS: 64493; 64494; J1100; J2001; J3490; 77002

== ENCOUNTER → 2018-03-04 | Day surgery (SDC) | payer MEDICARE, MEDICAID ==
[~2018-03-04] MED LIST changes: +BUPIVACAINE MPF 0.25% 10 ML VIAL. ONE; -BUPIVACAINE MPF 0.25% 30 ML VIAL. ONE; -DEXAMETHASONE SOD PHOS 10 MG/ML VIAL ONE; +MIDAZOLAM HCL PF 2 MG/2 ML VIAL. IV ONE; +MIDAZOLAM HCL PF 2 MG/2 ML VIAL. ONE; +methylPREDNISolone ACETATE 40 MG/ML VIAL. ONE
[2018-03-04 10:30] VITALS: BP 159/89
== END | disposition home or self-care (01) ==
LOC: SURG 08:06
PROVIDERS: ATTEND Anesthesiology Pain Medicine
DX: M47.816 Spondylosis without myelopathy or radiculopathy, lumbar region (principal); J44.9 Chronic obstructive pulmonary disease, unspecified; Z72.0 Tobacco use; Z79.2 Long term (current) use of antibiotics; Z79.899 Other long term (current) drug therapy; Z88.6 Allergy status to analgesic agent; Z88.8 Allergy status to other drugs, medicaments and biological substances; Z98.890 Other specified postprocedural states; Z90.710 Acquired absence of both cervix and uterus; Z88.0 Allergy status to penicillin; Z91.018 Allergy to other foods
CPT/HCPCS: 64635; 64636; 99152; J1030; J2001; J2250; J3010; J3490

== ENCOUNTER → 2018-04-08 | Outpatient (CLI) | payer MEDICARE, MEDICAID ==
[2018-03-04 10:30] VITALS: BP 159/89
[~2018-04-08] MED LIST changes: -ALEN70TA5 PO; +ALEN70TA6 PO; -BUPIVACAINE MPF 0.25% 10 ML VIAL. ONE; -EZET10TA26 PO; +EZET10TA49 PO; +HYDR-3165 PO; -LIDOCAINE 1% PF 30 ML VIAL. ONE; -MIDAZOLAM HCL PF 2 MG/2 ML VIAL. IV ONE; -MIDAZOLAM HCL PF 2 MG/2 ML VIAL. ONE; -methylPREDNISolone ACETATE 40 MG/ML VIAL. ONE
== END | disposition home or self-care (01) ==
LOC: SURG 08:25
PROVIDERS: ATTEND Anesthesiology Pain Medicine
DX: M47.816 Spondylosis without myelopathy or radiculopathy, lumbar region (principal); F11.20 Opioid dependence, uncomplicated; G89.29 Other chronic pain
CPT/HCPCS: 99214

== ENCOUNTER → 2018-05-10 | Outpatient (CLI) | payer MEDICARE, MEDICAID ==
[2018-03-04 10:30] VITALS: BP 159/89
[2018-05-10 10:06] LABS: AMPHETAMINE/METHAMPHETAMINE NEG (NEG); BARBITURATES POS (NEG); BENZODIAZEPINES POS (NEG); CANNABINOIDS NEG (NEG); COCAINE NEG (NEG); METHADONE NEG (NEG); OPIATES POS (NEG); PHENCYCLIDINE NEG (NEG)
== END | disposition home or self-care (01) ==
LOC: SURG 09:22
PROVIDERS: ATTEND Anesthesiology
DX: M47.816 Spondylosis without myelopathy or radiculopathy, lumbar region (principal); F11.20 Opioid dependence, uncomplicated; G89.4 Chronic pain syndrome
CPT/HCPCS: 36415; 80307; 99214

== ENCOUNTER 2018-06-27 17:29 | Emergency (ER) | payer MEDICARE, MEDICAID ==
[~2018-06-27] VITALS: Ht 154.9 cm; Wt 64.9 kg
[~2018-06-27 17:29] MED LIST changes: -HYDR-3165 PO
[2018-06-27 17:44] VITALS: BP 115/62
--- NOTE | 2018-06-27 17:57 | PHYS DOC ---
Past History Past Medical History: High Cholesterol, Hypertension, Hypothyroid, Other Past Surgical History: , Hysterectomy Alcohol Use: None Drug Use: None Adult General Chief Complaint Chief Complaint: FOOT INJURY PAIN HPI HPI 63-year-old female presents with right foot and ankle pain. The patient went to stand up and go to the restroom on her foot rotated medially and the patient fell to the ground. She also landed on her foot when she fell. She then manually straighten her ankle out with her hands. She is able to stand up and walk on her heel, she puts pressure on the front of her foot is very painful. She believes that she heard a popping sound as she fell. It is very tender on the lateral part of her ankle just anterior to the malleolus. She denies any other injuries or complaints. She did not hit her head or lose consciousness. Review of Systems Review of Systems Constitutional: Denies fever or chills [] Eyes: Denies change in visual acuity, redness, or eye pain [] HENT: Denies nasal congestion or sore throat [] Respiratory: Denies cough or shortness of breath [] Cardiovascular: No additional information not addressed in HPI [] GI: Denies abdominal pain, nausea, vomiting, bloody stools or diarrhea [] : Denies dysuria or hematuria [] Musculoskeletal: Right ankle pain[] Integument: Denies rash or skin lesions [] Neurologic: Denies headache, focal weakness or sensory changes [] Endocrine: Denies polyuria or polydipsia [] All other systems were reviewed and found to be within normal limits, except as documented in this note. Allergies Allergies Allergies Coded Allergies Type Severity Reaction Last Updated Verified Beta-Blockers (Beta-Adrenergic Bloc Allergy Severe 12/21/13 Yes orange juice Allergy Severe Swelling 12/20/13 Yes rosuvastatin Allergy Severe patient states crestor seals throat shut 12/22/13 Yes Penicillins Allergy Intermediate 12/22/13 Yes alprazolam Allergy Intermediate 12/22/13 Yes atorvastatin Allergy Intermediate 12/22/13 Yes fluticasone Allergy Intermediate 12/22/13 Yes propranolol Allergy Intermediate 12/22/13 Yes tramadol Allergy Intermediate 03/26/14 Yes metoclopramide Allergy Unknown 05/26/17 Yes Physical Exam Physical Exam Constitutional: Well developed, well nourished, no acute distress, non-toxic appearance. [] HENT: Normocephalic, atraumatic, bilateral external ears normal, oropharynx moist, no oral exudates, nose normal. [] Eyes: PERRLA, EOMI, conjunctiva normal, no discharge. [] Neck: Normal range of motion, no tenderness, supple, no stridor. [] Cardiovascular:Heart rate regular rhythm, no murmur [] Lungs & Thorax: Bilateral breath sounds clear to auscultation [] Abdomen: Bowel sounds normal, soft, no tenderness, no masses, no pulsatile masses. [] Skin: Warm, dry, no erythema, no rash. [] Back: No tenderness, no CVA tenderness. [] Extremities: Tenderness over the right lateral malleolus, no obvious deformity or significant swelling[] Neurologic: Alert and oriented X 3, normal motor function, normal sensory function, no focal deficits noted. Fine upper extremity tremor[] Psychologic: Affect normal, judgement normal, mood normal. [] Current Patient Data Vital Signs Vital Signs Date Time Temp Pulse Resp B/P (MAP) Pulse Ox O2 Delivery O2 Flow Rate FiO2 06/27/18 17:44 98.2 93 18 97 Room Air EKG EKG [] Radiology/Procedures Radiology/Procedures [] Impressions: Preliminary interpretation of ankle x-ray: No acute fracture or dislocation is seen. Course & Med Decision Making Course & Med Decision Making Pertinent Labs and Imaging studies reviewed. (See chart for details) The patient's x-rays negative for fracture. I believe she has a sprained ankle. We will place her in an air splint. She is stable for discharge at this time. She has further complications she will follow up with her PCP or orthopedics. I will also discharge the patient with 10 Rincon 5/325 for pain. [] Dragon Disclaimer Dragon Disclaimer This electronic medical record was generated, in whole or in part, using a voice recognition dictation system. Departure Departure: Disposition: 01 HOME, SELF-CARE Condition: STABLE Referrals: TRUDI CORDERO MD (PCP) Patient Instructions: Ankle Sprain, Acute, with Phase I Re[facility] Scripts Hydrocodone Bit/Acetaminophen (NORCO 5-325 TABLET) 1 Each Tablet 1 TAB PO PRN Q6HRS PRN for PAIN, #10 TAB 0 Refills Prov: TEREZA JARQUIN DO 06/27/18 TEREZA JARQUIN DO June 27, 2018 17:57
[2018-06-27] MEDS ORDERED: HYDR-3165 PO (18:02)
[2018-06-27] MEDS ORDERED: HYDROcodone/APAP 5/325MG 1 TAB TABLET PO ONE (18:30)
--- NOTE | 2018-06-27 20:09 | RAD ---
3 view right ankle 06/27/2017 Clinical indication: Fall with right ankle pain. COMPARISON: None. FINDINGS: No acute fracture or traumatic malalignment. Joint spaces maintained. Mild medial ankle osteoarthritis. IMPRESSION: No acute osseous abnormality. Electronically signed by: Noah Brian MD (06/27/2018 8:06 PM) [facility]
== END 2018-06-27 18:10 | disposition home or self-care (01) ==
LOC: ER 17:29
DX: S93.401A Sprain of unspecified ligament of right ankle, initial encounter (principal); E78.00 Pure hypercholesterolemia, unspecified; I10 Essential (primary) hypertension; E03.9 Hypothyroidism, unspecified; Z88.8 Allergy status to other drugs, medicaments and biological substances; Z88.0 Allergy status to penicillin; Z88.6 Allergy status to analgesic agent; Z91.018 Allergy to other foods; W18.39XA Other fall on same level, initial encounter; Y93.89 Activity, other specified; Y92.89 Other specified places as the place of occurrence of the external cause; Y99.8 Other external cause status
CPT/HCPCS: 73610; 99284

== ENCOUNTER 2018-09-18 11:46 | Emergency (ER) | payer MEDICARE, MEDICAID ==
[~2018-09-18] VITALS: Ht 154.9 cm; Wt 64.3 kg
[~2018-09-18 11:46] MED LIST changes: +HYDR-3165 PO; +OMEP20CA10 PO; -OMEP20CA9 PO
[2018-09-18] MEDS ORDERED: IV NORMAL SALINE 1,000ML 1,000 ML IV SCH (12:09)
[2018-09-18 12:19] LABS: BASO % 1 % (0-3); EOS # 0.1 x10^3/uL (0.0-0.7); EOS % 3 % (0-3); HEMATOCRIT 41.9 % (36.0-47.0); HEMOGLOBIN 13.6 g/dL (12.0-15.5); LYMPH # 1.2 x10^3/uL (1.0-4.8); LYMPH % 29 % (24-48); MEAN CORPUSCULAR HEMOGLOBIN 33 pg (25-35); MEAN CORPUSCULAR HGB CONC 32 g/dL (31-37); MEAN CORPUSCULAR VOLUME 101 fL (79-100); MONO # 0.4 x10^3/uL (0.0-1.1); MONO % 9 % (0-9); NEUT # 2.5 x10^3uL (1.8-7.7); NEUT % 59 % (31-73); PLATELET COUNT 212 x10^3/uL (140-400); RED BLOOD COUNT 4.15 x10^6/uL (3.50-5.40); WHITE BLOOD COUNT 4.2 x10^3/uL (4.0-11.0)
[2018-09-18 12:36] LABS: ALBUMIN 3.6 g/dL (3.4-5.0); CREATININE 0.8 mg/dL (0.6-1.0); DIRECT BILIRUBIN 0.1 mg/dL (0.0-0.2); MAGNESIUM 2.1 mg/dL (1.8-2.4); POTASSIUM 4.4 mmol/L (3.5-5.1); TOTAL BILIRUBIN 0.2 mg/dL (0.2-1.0); TOTAL PROTEIN 6.9 g/dL (6.4-8.2)
--- NOTE | 2018-09-18 12:46 | RAD ---
RS Compliance Statement: One or more of the following individualized dose reduction techniques were utilized for this examination: 1. Automated exposure control 2. Adjustment of the mA and/or kV according to patient size 3. Use of iterative reconstruction technique CT HEAD WITHOUT CONTRAST History: Expressive aphasia. Comparison: CT head without contrast July 26, 2017. Technique: Axial images are obtained of the head from the skull base through the vertex without IV contrast. Findings: No mass-effect, midline shift, extra-axial fluid collection, hemorrhage, or obvious acute infarction is identified. Basilar cisterns are patent. Density near the distal right ICA is similar to prior study and may be due to partial volume averaging from the sella. The ventricles and sulci are normal for patient age. Bone windows demonstrate no acute calvarial abnormality. The visualized paranasal sinuses are clear. Mastoid air cells are well aerated. IMPRESSION: No acute intracranial abnormality. Electronically signed by: Joselito Blackwood MD (09/18/2018 12:43 PM) [facility]
[2018-09-18 14:05] LABS: BACTERIA,URINE 0 /HPF (0-FEW); BILIRUBIN,URINE NEG (NEG); CLARITY,URINE CLEAR; COLOR,URINE YELLOW; GLUCOSE,URINE NEG (NEG); NITRITE,URINE NEG (NEG); RBC,URINE 0 /HPF (0-2); SQUAMOUS EPITHELIAL CELL,UR FEW /LPF; UROBILINOGEN,URINE 0.2 mg/dL (0.2 mg/dL); WBC,URINE 0 /HPF (0-4)
[2018-09-18] MEDS ORDERED: IOHEXOL 300 MG/ML 75 ML VIAL. IV ONE (14:30)
[2018-09-18 14:42] VITALS: BP 156/93
--- NOTE | 2018-09-18 14:48 | RAD ---
PQRS Compliance Statement: One or more of the following individualized dose reduction techniques were utilized for this examination: 1. Automated exposure control 2. Adjustment of the mA and/or kV according to patient size 3. Use of iterative reconstruction technique CT ABD PELV W/ IV CONTRST ONLY Clinical Indication: Left lower quadrant abdominal pain. Comparison: CT abdomen and pelvis with contrast, May 19, 2017. Technique: Helical CT imaging of the abdomen and pelvis is performed after 75 cc of Omnipaque 300 IV contrast. Oral contrast not given. Findings: Lung bases are clear. Cardiac size normal. Only the inferior most heart is imaged. Liver, gallbladder, spleen, pancreas, adrenal glands, and kidneys are normal. Moderate atherosclerotic calcification of the abdominal aorta. No aneurysm. No obvious abnormality of the stomach. No dilated small bowel. There is distal colon diverticulosis. Appendix not identified, no secondary signs of appendicitis. There is stool in the proximal colon. There is no colon wall thickening. No abdominal adenopathy or free fluid. Urinary bladder is normal. Hysterectomy. No pelvic free fluid. Disc space narrowing L4/L5. IMPRESSION: 1. No acute abdominal or pelvic abnormality. 2. Distal colon diverticulosis. Electronically signed by: Joselito Blackwood MD (09/18/2018 2:45 PM) [facility]
[2018-09-18] MEDS ORDERED: KETOROLAC 15 MG/ML VIAL. IV ONE (14:55)
--- NOTE | 2018-09-18 14:55 | PHYS DOC ---
Past History Past Medical History: High Cholesterol, Hypertension, Hypothyroid, Other Past Surgical History: , Hysterectomy Alcohol Use: None Drug Use: None Adult General Chief Complaint Chief Complaint: WEAKNESS/GENERALIZED HPI HPI Patient is a 63-year-old female who presents with complaint of lower extremity weakness, stating that she had fallen at home because her legs felt rubbery and she felt like she was not able to support herself with her legs. She states that she had laid on the floor for approximately an hour and then she was able to get to her phone and called her daughter who ultimately called 911. She denies any lateralizing weakness. She denies any headache. She does complain of some left lower abdominal discomfort and wonders if she could have diverticulitis. She rates that pain at a 3-4 out of 10. She denies any chest pain or shortness of breath and also denies fever.[] Review of Systems Review of Systems Constitutional: Denies fever or chills [] Respiratory: Denies cough or shortness of breath [] Cardiovascular: No additional information not addressed in HPI [] GI: Complains of left lower abdominal pain without vomiting or diarrhea [] : Denies dysuria or hematuria [] Neurologic: Denies headache, focal weakness or sensory changes [] All other systems were reviewed and found to be within normal limits, except as documented in this note. Current Medications Current Medications Current Medications Medications (Trade) Dose Ordered Sig/Mahad Start Time Stop Time Status Last Admin Dose Admin Iohexol (Omnipaque 300 Mg/ml) 75 ml 1X ONCE 09/18/18 14:30 09/18/18 14:31 DC 09/18/18 14:23 75 ML Ketorolac Tromethamine (Toradol 15mg Vial) 15 mg 1X ONCE 09/18/18 14:55 09/18/18 14:56 09/18/18 14:45 15 MG Sodium Chloride 1,000 ml @ 1,000 mls/hr Q1H 09/18/18 12:09 09/18/18 13:08 DC 09/18/18 12:18 1,000 MLS/HR Allergies Allergies Allergies Coded Allergies Type Severity Reaction Last Updated Verified Beta-Blockers (Beta-Adrenergic Bloc Allergy Severe 12/21/13 Yes orange juice Allergy Severe Swelling 12/20/13 Yes rosuvastatin Allergy Severe patient states crestor seals throat shut 12/22/13 Yes Penicillins Allergy Intermediate 12/22/13 Yes alprazolam Allergy Intermediate 12/22/13 Yes atorvastatin Allergy Intermediate 12/22/13 Yes fluticasone Allergy Intermediate 12/22/13 Yes propranolol Allergy Intermediate 12/22/13 Yes tramadol Allergy Intermediate 03/26/14 Yes metoclopramide Allergy Unknown 05/26/17 Yes Physical Exam Physical Exam Constitutional: Well developed, well nourished, no acute distress, non-toxic appearance. [] HENT: Normocephalic, atraumatic, bilateral external ears normal, oropharynx moist, no oral exudates, nose normal. [] Eyes: PERRLA, EOMI, conjunctiva normal, no discharge. [] Neck: Normal range of motion, no tenderness, supple, no stridor. [] Cardiovascular:Heart rate regular rhythm, no murmur [] Lungs & Thorax: Bilateral breath sounds clear to auscultation [] Abdomen: Bowel sounds normal, soft, with mild left lower quadrant tenderness. [] Skin: Warm, dry, no erythema, no rash. [] Extremities: No tenderness, no cyanosis, no clubbing, ROM intact. [] Neurologic: Alert and oriented X 3, no focal deficits noted. [] Current Patient Data Vital Signs Vital Signs Date Time Temp Pulse Resp B/P (MAP) Pulse Ox O2 Delivery O2 Flow Rate FiO2 09/18/18 11:46 97.7 84 16 98 Room Air Lab Results Laboratory Tests Test 09/18/18 11:53 09/18/18 13:26 White Blood Count 4.2 x10^3/uL (4.0-11.0) Red Blood Count 4.15 x10^6/uL (3.50-5.40) Hemoglobin 13.6 g/dL (12.0-15.5) Hematocrit 41.9 % (36.0-47.0) Mean Corpuscular Volume 101 fL (79-100) H Mean Corpuscular Hemoglobin 33 pg (25-35) Mean Corpuscular Hemoglobin Concent 32 g/dL (31-37) Red Cell Distribution Width 17.0 % (11.5-14.5) H Platelet Count 212 x10^3/uL (140-400) Neutrophils (%) (Auto) 59 % (31-73) Lymphocytes (%) (Auto) 29 % (24-48) Monocytes (%) (Auto) 9 % (0-9) Eosinophils (%) (Auto) 3 % (0-3) Basophils (%) (Auto) 1 % (0-3) Neutrophils # (Auto) 2.5 x10^3uL (1.8-7.7) Lymphocytes # (Auto) 1.2 x10^3/uL (1.0-4.8) Monocytes # (Auto) 0.4 x10^3/uL (0.0-1.1) Eosinophils # (Auto) 0.1 x10^3/uL (0.0-0.7) Basophils # (Auto) 0.0 x10^3/uL (0.0-0.2) Sodium Level 140 mmol/L (136-145) Potassium Level 4.4 mmol/L (3.5-5.1) Chloride Level 103 mmol/L (98-107) Carbon Dioxide Level 30 mmol/L (21-32) Anion Gap 7 (6-14) Blood Urea Nitrogen 7 mg/dL (7-20) Creatinine 0.8 mg/dL (0.6-1.0) Estimated GFR (Cockcroft-Gault) 72.0 Glucose Level 101 mg/dL (70-99) H Calcium Level 9.0 mg/dL (8.5-10.1) Magnesium Level 2.1 mg/dL (1.8-2.4) Total Bilirubin 0.2 mg/dL (0.2-1.0) Direct Bilirubin 0.1 mg/dL (0.0-0.2) Aspartate Amino Transferase (AST) 16 U/L (15-37) Alanine Aminotransferase (ALT) 17 U/L (14-59) Alkaline Phosphatase 73 U/L (46-116) Total Protein 6.9 g/dL (6.4-8.2) Albumin 3.6 g/dL (3.4-5.0) Urine Collection Type Unknown Urine Color Yellow Urine Clarity Clear Urine pH 7.5 Urine Specific [place] 1.015 Urine Protein Neg (NEG-TRACE) Urine Glucose (UA) Neg mg/dL (NEG) Urine Ketones (Stick) Neg mg/dL (NEG) Urine Blood Neg (NEG) Urine Nitrite Neg (NEG) Urine Bilirubin Neg (NEG) Urine Urobilinogen Dipstick 0.2 mg/dL (0.2 mg/dL) Urine Leukocyte Esterase Neg (NEG) Urine RBC 0 /HPF (0-2) Urine WBC 0 /HPF (0-4) Urine Squamous Epithelial Cells Few /LPF Urine Bacteria 0 /HPF (0-FEW) EKG EKG [] Radiology/Procedures Radiology/Procedures [] Impressions: PROCEDURE: CT ABD PELV W/ IV CONTRST ONLY PQRS Compliance Statement: One or more of the following individualized dose reduction techniques were utilized for this examination: 1. Automated exposure control 2. Adjustment of the mA and/or kV according to patient size 3. Use of iterative reconstruction technique CT ABD PELV W/ IV CONTRST ONLY Clinical Indication: Left lower quadrant abdominal pain. Comparison: CT abdomen and pelvis with contrast, May 19, 2017. Technique: Helical CT imaging of the abdomen and pelvis is performed after 75 cc of Omnipaque 300 IV contrast. Oral contrast not given. Findings: Lung bases are clear. Cardiac size normal. Only the inferior most heart is imaged. Liver, gallbladder, spleen, pancreas, adrenal glands, and kidneys are normal. Moderate atherosclerotic calcification of the abdominal aorta. No aneurysm. No obvious abnormality of the stomach. No dilated small bowel. There is distal colon diverticulosis. Appendix not identified, no secondary signs of appendicitis. There is stool in the proximal colon. There is no colon wall thickening. No abdominal adenopathy or free fluid. Urinary bladder is normal. Hysterectomy. No pelvic free fluid. Disc space narrowing L4/L5. IMPRESSION: 1. No acute abdominal or pelvic abnormality. 2. Distal colon diverticulosis. Electronically signed by: Joselito Blackwood MD (09/18/2018 2:45 PM) [facility] Course & Med Decision Making Course & Med Decision Making Pertinent Labs and Imaging studies reviewed. (See chart for details) [] Dragon Disclaimer Dragon Disclaimer This electronic medical record was generated, in whole or in part, using a voice recognition dictation system. Departure Departure: Impression: Primary Impression: Lower extremity weakness Additional Impression: Abdominal pain Disposition: 01 HOME, SELF-CARE Condition: STABLE Referrals: TRUDI CORDERO MD (PCP) Patient Instructions: Abdominal Pain, Weakness Problem Qualifiers Primary Impression: Lower extremity weakness Laterality: bilateral Qualified Codes: R29.898 - Other symptoms and signs involving the musculoskeletal system Additional Impression: Abdominal pain Abdominal location: left lower quadrant Qualified Codes: R10.32 - Left lower quadrant pain CHUY BOWENS Jr. DO Sep 18, 2018 14:55
--- NOTE | 2018-09-18 16:21 | EKG ---
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
== END 2018-09-18 15:10 | disposition home or self-care (01) ==
LOC: ER 11:46
DX: R29.898 Other symptoms and signs involving the musculoskeletal system (principal); R53.1 Weakness; R10.32 Left lower quadrant pain; K57.30 Diverticulosis of large intestine without perforation or abscess without bleeding; E78.00 Pure hypercholesterolemia, unspecified; I10 Essential (primary) hypertension; E03.9 Hypothyroidism, unspecified; Z88.6 Allergy status to analgesic agent; Z88.8 Allergy status to other drugs, medicaments and biological substances; Z91.018 Allergy to other foods; Z88.0 Allergy status to penicillin; Z90.710 Acquired absence of both cervix and uterus; Z98.890 Other specified postprocedural states
CPT/HCPCS: 36415; 70450; 74177; 80048; 80076; 81001; 83735; 85025; 93005; 96374; 99285; J1885; Q9967; J7030

== ENCOUNTER 2018-10-15 08:02 | Inpatient (IN) | payer MEDICARE, MEDICAID ==
[~2018-10-15] VITALS: Ht 154.9 cm; Wt 61.4 kg
[2018-10-15 08:36] LABS: BASO % 1 % (0-3); EOS # 0.1 x10^3/uL (0.0-0.7); EOS % 3 % (0-3); HEMATOCRIT 40.8 % (36.0-47.0); HEMOGLOBIN 13.5 g/dL (12.0-15.5); LYMPH # 1.3 x10^3/uL (1.0-4.8); LYMPH % 34 % (24-48); MEAN CORPUSCULAR HEMOGLOBIN 34 pg (25-35); MEAN CORPUSCULAR HGB CONC 33 g/dL (31-37); MEAN CORPUSCULAR VOLUME 101 fL (79-100); MONO # 0.3 x10^3/uL (0.0-1.1); MONO % 7 % (0-9); NEUT # 2.2 x10^3uL (1.8-7.7); NEUT % 55 % (31-73); PLATELET COUNT 221 x10^3/uL (140-400); RED BLOOD COUNT 4.03 x10^6/uL (3.50-5.40); RED CELL DISTRIBUTION WIDTH 17.1 % (11.5-14.5); WHITE BLOOD COUNT 3.9 x10^3/uL (4.0-11.0)
[2018-10-15 08:45] LABS: ALBUMIN 3.5 g/dL (3.4-5.0); ALBUMIN/GLOBULIN RATIO 1.1 (1.0-1.7); CALCIUM 8.8 mg/dL (8.5-10.1); CREATININE 0.8 mg/dL (0.6-1.0); POTASSIUM 4.2 mmol/L (3.5-5.1); TOTAL BILIRUBIN 0.1 mg/dL (0.2-1.0); TOTAL PROTEIN 6.8 g/dL (6.4-8.2)
--- NOTE | 2018-10-15 09:43 | ED.ADGEN ---
Past History Past Medical History: Fibromyalgia, High Cholesterol, Hypertension, Migraines Past Surgical History: Hysterectomy Alcohol Use: None Drug Use: None Adult General Chief Complaint Chief Complaint Multiple medical complaints HPI HPI Patient is a 63-year-old female who presents with multiple medical complaints. Patient complains of fluid behind right ear, loss of hearing her right ear, sinus drainage, cough, generalized malaise and weakness. Patient has history of hypertension, COPD fibromyalgia and frequent migraines. Patient takes hydrocodone for chronic low back pain. Denies fever chills, nausea vomiting and sweats. No abdominal pain, urinary frequency urgency or dysuria. No other acute symptoms or complaints. Patient is a current smoker and lives by herself.[] Review of Systems Review of Systems Review symptoms as per history of present illness. All other review symptoms are negative. All other systems were reviewed and found to be within normal limits, except as documented in this note. Allergies Allergies Allergies Coded Allergies Type Severity Reaction Last Updated Verified Beta-Blockers (Beta-Adrenergic Bloc Allergy Severe 12/21/13 Yes orange juice Allergy Severe Swelling 12/20/13 Yes rosuvastatin Allergy Severe patient states crestor seals throat shut 12/22/13 Yes Penicillins Allergy Intermediate 12/22/13 Yes alprazolam Allergy Intermediate 12/22/13 Yes atorvastatin Allergy Intermediate 12/22/13 Yes fluticasone Allergy Intermediate 12/22/13 Yes propranolol Allergy Intermediate 12/22/13 Yes tramadol Allergy Intermediate 03/26/14 Yes metoclopramide Allergy Unknown 05/26/17 Yes Physical Exam Physical Exam Constitutional: Well developed, well nourished, no acute distress, non-toxic appearance. [] HENT: Normocephalic, atraumatic, bilateral external ears normal, right TM opaque, bulging with effusion, no otorrhea or air-fluid levels, minimal tenderness, oropharynx moist, no oral exudates, nose normal. Maxillary sinus tenderness. [] Eyes: PERRLA, EOMI, conjunctiva normal. [] Neck: Normal range of motion, no tenderness, supple. [] Cardiovascular:Heart rate regular rhythm, no murmur. [] Lungs & Thorax: Respirations nonlabored, coarse diminished breath sounds bilaterally, coarse dry cough. [] Abdomen: Bowel sounds normal, soft, no tenderness. [] Skin: Warm, dry. [] Back: No tenderness, no CVA tenderness. [] Extremities: No tenderness, no cyanosis, no clubbing, ROM intact, no edema. [] Neurologic: Alert and oriented X 3, normal motor function, normal sensory function, no focal deficits noted. [] Psychologic: Affect normal, judgement normal, mood normal. [] Current Patient Data Vital Signs Vital Signs Date Time Temp Pulse Resp B/P (MAP) Pulse Ox O2 Delivery O2 Flow Rate FiO2 10/15/18 08:11 89 18 95 Room Air Lab Results Laboratory Tests Test 10/15/18 08:10 White Blood Count 3.9 x10^3/uL (4.0-11.0) L Red Blood Count 4.03 x10^6/uL (3.50-5.40) Hemoglobin 13.5 g/dL (12.0-15.5) Hematocrit 40.8 % (36.0-47.0) Mean Corpuscular Volume 101 fL (79-100) H Mean Corpuscular Hemoglobin 34 pg (25-35) Mean Corpuscular Hemoglobin Concent 33 g/dL (31-37) Red Cell Distribution Width 17.1 % (11.5-14.5) H Platelet Count 221 x10^3/uL (140-400) Neutrophils (%) (Auto) 55 % (31-73) Lymphocytes (%) (Auto) 34 % (24-48) Monocytes (%) (Auto) 7 % (0-9) Eosinophils (%) (Auto) 3 % (0-3) Basophils (%) (Auto) 1 % (0-3) Neutrophils # (Auto) 2.2 x10^3uL (1.8-7.7) Lymphocytes # (Auto) 1.3 x10^3/uL (1.0-4.8) Monocytes # (Auto) 0.3 x10^3/uL (0.0-1.1) Eosinophils # (Auto) 0.1 x10^3/uL (0.0-0.7) Basophils # (Auto) 0.0 x10^3/uL (0.0-0.2) Sodium Level 139 mmol/L (136-145) Potassium Level 4.2 mmol/L (3.5-5.1) Chloride Level 103 mmol/L (98-107) Carbon Dioxide Level 30 mmol/L (21-32) Anion Gap 6 (6-14) Blood Urea Nitrogen 9 mg/dL (7-20) Creatinine 0.8 mg/dL (0.6-1.0) Estimated GFR (Cockcroft-Gault) 72.0 BUN/Creatinine Ratio 11 (6-20) Glucose Level 93 mg/dL (70-99) Calcium Level 8.8 mg/dL (8.5-10.1) Total Bilirubin 0.1 mg/dL (0.2-1.0) L Aspartate Amino Transferase (AST) 15 U/L (15-37) Alanine Aminotransferase (ALT) 15 U/L (14-59) Alkaline Phosphatase 69 U/L (46-116) Troponin I Quantitative < 0.017 ng/mL (0-0.055) Total Protein 6.8 g/dL (6.4-8.2) Albumin 3.5 g/dL (3.4-5.0) Albumin/Globulin Ratio 1.1 (1.0-1.7) EKG EKG [EKG: Sinus tach, rate 103. Course & Med Decision Making Course & Med Decision Making Pertinent Labs and Imaging studies reviewed. (See chart for details) [Right maxillary tenderness with otitis media with effusion. Antibiotics and decongestants prescribed. Tessalon Perles prescribed for cough. Recommendations are to follow-up with PCP for further evaluation and pain management.] Final Impression Final Impression [1 right maxillary sinusitis 2. Otitis media with effusion 3. Acute bronchitis is that] Dragon Disclaimer Dragon Disclaimer This electronic medical record was generated, in whole or in part, using a voice recognition dictation system. TEREZA PAULA DO Oct 15, 2018 09:43
[2018-10-15] MEDS ORDERED: CEFD300C PO (09:48)
[2018-10-15] MEDS ORDERED: FEXO180T81 PO (09:48)
[2018-10-15] MEDS ORDERED: BENZ100C PO (09:48)
--- NOTE | 2018-10-15 13:00 | NUR ---
Received call from Dr. Spears for direct admission, inpatient Tele, Dr. Spears for difficulty walking, possible TIA/CVA. RN to call upon arrival for orders.
--- NOTE | 2018-10-15 13:30 | NUR ---
Admit to room 123 via w/c accompanied by staff and family by direct admit. Vs stable, c/o left sided weakness to arm and leg,and some numbness in arm. Pt speech is slightly slurred and slow but able to communicate all needs and answer all questions. Family at bedside and stated this all started this morning. Pt states she also has some dizziness when up and has some difficulty focusing her eyes. Saline lock started in right ac, 20 gauge. Tolerated procedure well. NIHSS completed by nursing engineering team supervisor at bedside. Oriented to room and explained all procedures to pt and family.
--- NOTE | 2018-10-15 13:35 | NUR ---
Pt settled into bed, NIHSS completed at bedside, with a score of 3, refer to interventions. Pt was brought into ER earlier today by EMS for weakness, hearing change in right ear, blurry vision. Pt was dc'd home with dx of bronchitis and congestion. NIHSS was completed by POLYETHYLENE COMBINER and score was a 1. No CT was ordered at that time. Pt went home, took 1 of the tablets of new antibiotic and immediately vomited it up. Pt had called Dr. Spears with her symptoms and he direct admitted her here for evaluation. Will contact Dr. Spears for further orders.
--- NOTE | 2018-10-15 14:10 | NUR ---
Spoke with Dr Spears regarding assessment of pt and NIHSS score. Received the following orders: CT of head without contrast, UA with micro, urine culture, Consult Dr. Jordan Mckeon for poss TIA/CVA, NS at 75 mls/hr, Aspirin 325mg x1 all orders repeated back to Dr. Spears and entered into system by this RN, who is nursing security officer supervisor.
[2018-10-15 14:29] VITALS: BP 151/87
[2018-10-15] MEDS ORDERED: IV NORMAL SALINE 1,000ML 1,000 ML IV SCH (14:30)
[2018-10-15] MEDS ORDERED: ASPIRIN 81 MG TAB.CHEW PO SCH (14:45)
--- NOTE | 2018-10-15 15:00 | NUR ---
Dr. Mckeon here to evaluate pt. Awaiting CT of head to be done. After reviewing CT, Dr. Mckeon requesting pt to be transferred to [facility] for MRA/MRI. Dr. Spears spoke to Dr. Sanchez, who accepted the transfer. Bed requested via [facility] nursing supervisor fireworks assembly. Awaiting room assignment.
--- NOTE | 2018-10-15 15:33 | RAD ---
RS Compliance Statement: One or more of the following individualized dose reduction techniques were utilized for this examination: 1. Automated exposure control 2. Adjustment of the mA and/or kV according to patient size 3. Use of iterative reconstruction technique CT HEAD WITHOUT CONTRAST History: Possible TIA. Comparison: CT head without contrast, September 18, 2018. Procedure: Axial images are obtained of the head from the skull base through the vertex without IV contrast. Findings: The ventricles and sulci are normal for the patient's age. No mass-effect, midline shift, hemorrhage, extra-axial fluid collection, or obvious acute infarction is identified. Basilar cisterns are patent. Bone windows demonstrate no acute calvarial abnormality. Moderate mucosal thickening of the right maxillary sinus.. Mastoid air cells are well aerated. IMPRESSION: No acute intracranial abnormality. Electronically signed by: Joselito Blackwood MD (10/15/2018 3:30 PM) [facility] [place]
--- NOTE | 2018-10-15 16:00 | NUR ---
Requested a follow up on bed assignment request. Awaiting to here from [facility] Finance Lecturer, Ewa
--- NOTE | 2018-10-15 17:00 | NUR ---
[facility] nursing direct care supervisor was paged to find out status of bed request. Awaiting for return call.
[2018-10-15 17:25] VITALS: BP 129/66
[2018-10-15] MEDS ORDERED: ACETAMINOPHEN 500 MG TABLET PO PRN (17:30)
[2018-10-15] MEDS ORDERED: ALEN70TA6 PO (17:31)
[2018-10-15] MEDS ORDERED: MELO7.5T29 PO (17:31)
[2018-10-15] MEDS ORDERED: LATA7.5D OU (17:31)
[2018-10-15] MEDS ORDERED: POTA8TAB6 PO (17:31)
--- NOTE | 2018-10-15 18:00 | NUR ---
Received call from [facility] nursing street light servicer supervisor, Ewa with a room assignment 656, report to be called to ext [phone]. Ewa explained the delay of assignment was due to several code situations at [facility].
--- NOTE | 2018-10-15 19:44 | NUR ---
PT DISCHARGED TO [facility] VIA EMS FOR MRI/MAR OF NECK. BELONGINGS SENT WITH DAUGHTER. REPORT GIVEN TO EMS. IV FLUIDS DISCONTINUED AND SALINE LOCKED.
--- NOTE | 2018-10-17 03:40 | EKG ---
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
== END 2018-10-15 19:44 | disposition short-term general hospital (02) | DRG 153 ==
LOC: ER 08:02 → 1 SOUTH 14:07
PROVIDERS: ADMIT Family Medicine; ATTEND Family Medicine
DX: H65.91 Unspecified nonsuppurative otitis media, right ear (principal); J20.9 Acute bronchitis, unspecified; E78.00 Pure hypercholesterolemia, unspecified; F17.200 Nicotine dependence, unspecified, uncomplicated; G89.29 Other chronic pain; M54.5 Low back pain; I10 Essential (primary) hypertension; J44.9 Chronic obstructive pulmonary disease, unspecified; G43.909 Migraine, unspecified, not intractable, without status migrainosus; J32.0 Chronic maxillary sinusitis; H65.90 Unspecified nonsuppurative otitis media, unspecified ear; Z90.710 Acquired absence of both cervix and uterus; Z88.0 Allergy status to penicillin; Z88.8 Allergy status to other drugs, medicaments and biological substances; Z91.018 Allergy to other foods
CPT/HCPCS: 36415; 70450; 80053; 84484; 85025; 93005; 99285-25; J7030

== ENCOUNTER → 2020-05-10 | Outpatient (CLI) | payer MEDICARE, MEDICAID ==
[~2020-05-10] MED LIST changes: -ALEN70TA6 PO; +ALEN70TA71 PO; +CEFD300C PO; +ERYT250C33 PO; -ERYT250C8 PO; +FEXO180T81 PO; +LATA7.5D OU; -OLOP2.5D OU; +OLOP2.5D12 OU; -OMEP20CA10 PO; +OMEP20CA16 PO; -PANT40TA5 PO; +PANT40TA6 PO; +POTA8TAB6 PO
--- NOTE | 2020-05-10 17:07 | RAD ---
EXAM: Lumbar spine, 3 views. HISTORY: Lower back pain and left lower extremity radiculopathy. COMPARISON: None. FINDINGS: 3 views of the lumbar spine are obtained. There is mild lumbar levocurvature. There is grad e 1 anterolisthesis of L4 and L5, measuring 3 mm. There is degenerative endplate remodeling with disc space narrowing and facet arthropathy predominantly at L4-L5 and L5-S1. No acute fracture is seen. IMPRESSION: 1. Degenerative change at the lower lumbar levels. 2. No acute osseous finding. Electronically signed by: Catarina Plascencia MD (05/10/2020 5:04 PM) [id number]
--- NOTE | 2020-05-10 21:07 | RAD ---
EXAM: LEFT TIBIA/FIBULA 2 VIEWS. HISTORY: Leg pain. COMPARISON: None. FINDINGS: No fractures are identified. The joint spaces and alignment of the knee and ankle are gross ly maintained. IMPRESSION: 1. No fracture. Electronically signed by: Cameron Sanches MD (05/10/2020 9:05 PM) [facility]
== END ==
LOC: RAD 14:35
PROVIDERS: ATTEND Family Medicine
DX: M47.816 Spondylosis without myelopathy or radiculopathy, lumbar region (principal)
CPT/HCPCS: 72100; 73590

== ENCOUNTER 2020-05-30 14:13 | Inpatient (IN) | payer MEDICARE, MEDICAID ==
[~2020-05-30] VITALS: Ht 154.9 cm; Wt 76.7 kg
--- NOTE | 2020-05-30 14:25 | PHYS DOC ---
Past History Past Medical History: Fibromyalgia, High Cholesterol, Hypertension, Migraines Past Surgical History: Hysterectomy Alcohol Use: None Drug Use: None General Adult EDM: Chief Complaint: NEURO SYMPTOMS/DEFICITS HPI: HPI: Patient is a 65-year-old female coming in via EMS for altered mental status. Family had noted that she had been having an abnormal gait and dropping things. Patient does have a history of a stroke with residual left-sided deficits. Patient states she has been tired and family says she has been more confused. Patient also complained of epigastric pain when she saw her primary care provider for about 5 days ago, and when they were thinking it was gastritis. Patient states the pain is epigastric and sometimes radiates to the substernal area. Patient denies any nausea or vomiting. Patient states she woke up this morning and had an episode of diarrhea while she was sleeping. Patient states this is not a regular occurrence. Patient denies dysuria but describes her urine as "hot pee". Patient is sleepy and dozing off during initial interview process. Per daughter she has been getting more confused over the past week and has been sleeping more and having decreased p.o. intake. Daughter states that this started shortly after her gabapentin was changed from capsule to a tablet that was extended release and the dose was increased. Review of Systems: Review of Systems: All other systems within normal limits except for as noted in the HPI Allergies: Allergies: Allergies Coded Allergies Type Severity Reaction Last Updated Verified Beta-Blockers (Beta-Adrenergic Bloc Allergy Severe 12/21/13 Yes orange juice Allergy Severe Swelling 12/20/13 Yes rosuvastatin Allergy Severe patient states crestor seals throat shut 12/22/13 Yes Penicillins Allergy Intermediate 12/22/13 Yes alprazolam Allergy Intermediate 12/22/13 Yes atorvastatin Allergy Intermediate 12/22/13 Yes fluticasone Allergy Intermediate 12/22/13 Yes propranolol Allergy Intermediate 12/22/13 Yes tramadol Allergy Intermediate 03/26/14 Yes metoclopramide Allergy Unknown 05/26/17 Yes Physical Exam: PE: Constitutional: Well developed, well nourished, no acute distress, non-toxic appearance. [] HENT: Normocephalic, atraumatic, bilateral external ears normal, nose normal. [] Eyes: PERRLA, conjunctiva normal, no discharge. [] Neck: No rigidity, supple, no stridor. [] Cardiovascular: Regular rate and rhythm, brisk cap refill [] Lungs & Thorax: Non labored symmetric respirations, no tachypnea or respiratory distress [] Abdomen: Soft, nondistended, epigastric tenderness with guarding, negative Isbell sign. No hepatosplenomegaly. Skin: Warm, dry, no erythema, no rash. [] Back: Unremarkable Extremities: No deformities, range of motion grossly intact, no lower extremity edema [] Neurologic: Alert and oriented X 3, patient easily distractible but able to be redirected. Unable to answer some simple questions., no focal deficits noted. [] Psychologic: Affect normal, judgement normal, mood normal. [] EKG: EKG: Normal sinus rhythm, heart rate 90 bpm, normal axis, no ST elevation depression, no ectopy. [] Radiology/Procedures: Radiology/Procedures: EXAM: Head CT without contrast. HISTORY: Mental status changes. TECHNIQUE: Computed tomographic images of the head were obtained without contrast. *One or more of the following individualized dose reduction techniques were utilized for this examination: 1. Automated exposure control. 2. Adjustment of the mA and/or kV according to patient size. 3. Use of iterative reconstruction technique. COMPARISON: 09/18/2018. FINDINGS: There is no acute or subacute extra-axial or intraparenchymal hemorrhage. There is no mass effect or midline shift. There is no hydrocephalus. There are areas of decreased attenuation within the cerebral white matter, nonspecific and likely related to chronic small vessel disease. There is mild cerebral volume loss. There may be a tiny chronic lacunar infarct or dilated perivascular space within the right basal ganglia. The visualized portions of the orbits, paranasal sinuses and mastoid air cells are unremarkable. No suspicious calvarial lesion is seen. IMPRESSION: No acute intracranial findings. Note is made that MRI is more sensitive for acute infarction. EXAM: CT Abdomen and Pelvis without IV contrast CLINICAL HISTORY: Low abdominal pain. COMPARISON: none TECHNIQUE: Helical CT of the abdomen and pelvis without intravenous contrast. Axial, coronal and sagittal reformatted images were generated. PQRS compliance statement - One or more of the following individualized dose reduction techniques were utilized for this study: 1. Automated exposure control 2. Adjustment of the mA and/or kV according to patient size 3. Use of iterative reconstruction technique FINDINGS: Lack of intravenous contrast limits evaluation of solid organs, vasculature, and lymph nodes. Lower chest: Linear opacities lung bases likely scarring/atelectasis. Abdomen and Pelvis: No focal liver lesion. Spleen and adrenal glands are unremarkable. Pancreas is unremarkable. Gallbladder is normal. No biliary duct dilatation. No focal renal lesion. No hydronephrosis. No hydroureter. Bladder is unremarkable. There is trace infiltration about the right colon. Appendix is not seen. Colon is essentially decompressed. A few colonic diverticula are seen. No evidence for acute diverticulitis. No abdominal or pelvic lymphadenopathy. No abdominal or pelvic ascites. Atherosclerotic calcifications of aorta with trace ectasia of the infrarenal aorta. Bones: No aggressive osseous lesion. Degenerative changes of the lower lumbar spine. IMPRESSION: Trace infiltration about the right colon may be seen with colitis. Colonic diverticulosis in the left colon and sigmoid colon without acute diverticulitis. [] Heart Score: C/O Chest Pain: No Risk Factors: Risk Factors: DM, Current or recent (<one month) smoker, HTN, HLP, family history of CAD, obesity. Risk Scores: Score 0 - 3: 2.5% MACE over next 6 weeks - Discharge Home Score 4 - 6: 20.3% MACE over next 6 weeks - Admit for Clinical Observation Score 7 - 10: 72.7% MACE over next 6 weeks - Early Invasive Strategies Course & Med Decision Making: Course & Med Decision Making Patient's daughter concern for stroke patient symptoms unlikely for stroke. Discussed that we cannot use a CT with contrast because of her kidney function and MRI would not waste/materials exchange specialist at this time. Discussed patient's primary care provider Dr. Spears he agrees patient to be admitted for hydration Dragon Disclaimer: Dragon Disclaimer: This electronic medical record was generated, in whole or in part, using a voice recognition dictation system. Departure Departure: Impression: Primary Impression: Colitis Additional Impressions: AMS (altered mental status) NOA (acute kidney injury) Dehydration Disposition: ADMITTED INPATIENT Admitting Physician: Mahad Spears Condition: STABLE Referrals: MAHAD SPEARS MD (PCP) TALON ORTIZ MD May 30, 2020 14:25
[2020-05-30 14:59] LABS: BASO % 0 % (0-3); EOS % 0 % (0-3); HEMATOCRIT 38.6 % (36.0-47.0); HEMOGLOBIN 12.6 g/dL (12.0-15.5); LYMPH # 0.7 x10^3/uL (1.0-4.8); LYMPH % 9 % (24-48); MEAN CORPUSCULAR HEMOGLOBIN 31 pg (25-35); MEAN CORPUSCULAR HGB CONC 33 g/dL (31-37); MEAN CORPUSCULAR VOLUME 94 fL (79-100); MONO # 0.8 x10^3/uL (0.0-1.1); MONO % 9 % (0-9); NEUT % 81 % (31-73); PLATELET COUNT 209 x10^3/uL (140-400); RED BLOOD COUNT 4.13 x10^6/uL (3.50-5.40); RED CELL DISTRIBUTION WIDTH 15.3 % (11.5-14.5); WHITE BLOOD COUNT 8.6 x10^3/uL (4.0-11.0)
[2020-05-30 15:04] LABS: CALCIUM 9.5 mg/dL (8.5-10.1); CREATININE 3.4 mg/dL (0.6-1.0); GFR 13.5; POTASSIUM 3.8 mmol/L (3.5-5.1)
--- NOTE | 2020-05-30 15:08 | EKG ---
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
[2020-05-30 15:16] LABS: ALBUMIN 3.7 g/dL (3.4-5.0); ALBUMIN/GLOBULIN RATIO 1.2 (1.0-1.7); MAGNESIUM 2.2 mg/dL (1.8-2.4); TOTAL BILIRUBIN 0.2 mg/dL (0.2-1.0); TOTAL PROTEIN 6.9 g/dL (6.4-8.2)
[2020-05-30 15:28] LABS: BARBITURATES NEG (NEG); BENZODIAZEPINES POS (NEG); CANNABINOIDS POS (NEG); COCAINE NEG (NEG); METHADONE NEG (NEG); OPIATES NEG (NEG); PHENCYCLIDINE NEG (NEG)
[2020-05-30 15:31] LABS: AMPHETAMINE/METHAMPHETAMINE NEG (NEG)
[2020-05-30] MEDS ORDERED: ONDANSETRON PF 4 MG/2 ML VIAL. IVP PRN (15:45)
[2020-05-30] MEDS ORDERED: ACETAMINOPHEN 325 MG TABLET PO PRN (15:45)
[2020-05-30 15:59] LABS: CLARITY,URINE CLOUDY; COLOR,URINE YELLOW; GLUCOSE,URINE NEG (NEG)
[2020-05-30 16:00] LABS: BILIRUBIN,URINE SMALL (NEG)
[2020-05-30 16:01] LABS: NITRITE,URINE NEG (NEG); RBC,URINE 0 /HPF (0-2); UROBILINOGEN,URINE 0.2 mg/dL (0.2 mg/dL)
[2020-05-30 16:02] LABS: BACTERIA,URINE MOD /HPF (0-FEW); HYALINE CASTS, URINE OCC /HPF; SQUAMOUS EPITHELIAL CELL,UR MOD /LPF
[2020-05-30 16:03] LABS: YEAST,URINE PRESENT /HPF
--- NOTE | 2020-05-30 16:49 | RAD ---
EXAM: Head CT without contrast. HISTORY: Mental status changes. TECHNIQUE: Computed tomographic images of the head were obtained without contrast. *One or more of the following individualized dose reduction techniques were utilized for this examina tion: 1. Automated exposure control. 2. Adjustment of the mA and/or kV according to patient size. 3. Use of iterative reconstruction technique. COMPARISON: 09/18/2018. FINDINGS: There is no acute or subacute extra-axial or intraparenchymal hemorrhage. There is no mass effect or midline shift. There is no hydrocephalus. There are areas of decreased attenuation within the cerebral white matter, nonspecific and likely rel ated to chronic small vessel disease. There is mild cerebral volume loss. There may be a tiny chronic lacunar infarct or dilated perivascular space within the right basal ganglia. The visualized portions of the orbits, paranasal sinuses and mastoid air cells are unremarkable. No s uspicious calvarial lesion is seen. IMPRESSION: No acute intracranial findings. Note is made that MRI is more sensitive for acute infarction. Electronically signed by: Catarina Plascencia MD (05/30/2020 4:46 PM) [id number]
--- NOTE | 2020-05-30 17:06 | RAD ---
EXAM: CT Abdomen and Pelvis without IV contrast CLINICAL HISTORY: Low abdominal pain. COMPARISON: none TECHNIQUE: Helical CT of the abdomen and pelvis without intravenous contrast. Axial, coronal and sagi ttal reformatted images were generated. PQRS compliance statement - One or more of the following individualized dose reduction techniques wer e utilized for this study: 1. Automated exposure control 2. Adjustment of the mA and/or kV according to patient size 3. Use of iterative reconstruction technique FINDINGS: Lack of intravenous contrast limits evaluation of solid organs, vasculature, and lymph nodes. Lower chest: Linear opacities lung bases likely scarring/atelectasis. Abdomen and Pelvis: No focal liver lesion. Spleen and adrenal glands are unremarkable. Pancreas is unremarkable. Gallbladder is normal. No biliary duct dilatation. No focal renal lesion. No hydronephrosis. No hydro ureter. Bladder is unremarkable. There is trace infiltration about the right colon. Appendix is not seen. Colon is essentially decompr essed. A few colonic diverticula are seen. No evidence for acute diverticulitis. No abdominal or pelvic lymphadenopathy. No abdominal or pelvic ascites. Atherosclerotic calcification s of aorta with trace ectasia of the infrarenal aorta. Bones: No aggressive osseous lesion. Degenerative changes of the lower lumbar spine. IMPRESSION: Trace infiltration about the right colon may be seen with colitis. Colonic diverticulosis in the left colon and sigmoid colon without acute diverticulitis. Electronically signed by: Zechariah Lopez MD (05/30/2020 5:03 PM) FLAVIO
[2020-05-30] MEDS: IV NORMAL SALINE 1,000ML 1,000 ML IV SCH (17:33)
[2020-05-30 20:35] VITALS: BP 134/65
[2020-05-30] MEDS ORDERED: GABA600T7 PO ×2 (21:18→21:19)
[2020-05-30] MEDS ORDERED: ONDA4TAB12 PO (21:18)
[2020-05-30] MEDS ORDERED: LOSA50TA14 PO (21:18)
[2020-05-30] MEDS ORDERED: BACL20TA PO (21:18)
[2020-05-30] MEDS ORDERED: CLOP75TA PO (21:18)
[2020-05-30] MEDS ORDERED: LEVO100T5 PO (21:18)
[2020-05-30] MEDS ORDERED: VENL150C6 PO (21:19)
[2020-05-30] MEDS ORDERED: ROSU20TA28 PO (21:19)
[2020-05-30] MEDS ORDERED: TIOT4MIS3 INH (21:19)
[2020-05-30] MEDS ORDERED: LATA7.5D OU (21:24)
[2020-05-30 21:30] VITALS: BP 130/76
[2020-05-30] MEDS ORDERED: HYDROcodone/APAP 5/325MG 1 TAB TABLET PO PRN (21:45)
[2020-05-30] MEDS ORDERED: diazePAM 5 MG TABLET. PO PRN (21:45)
[2020-05-30] MEDS ORDERED: ONDANSETRON ODT 4 MG TAB.RAPDIS PO PRN (21:45)
[2020-05-31 01:00] VITALS: BP 118/63
[2020-05-31] MEDS: IV NORMAL SALINE 1,000ML 1,000 ML IV SCH ×2 (02:12→13:30)
[2020-05-31 05:05] VITALS: BP 120/80
[2020-05-31] MEDS: IPRATRPIUM/ALBUTEROL 0.5/2.5MG 3 ML NEBU. NEB SCH ×4 (05:38→22:04)
[2020-05-31 06:45] LABS: BASO % 0 % (0-3); EOS # 0.2 x10^3/uL (0.0-0.7); EOS % 3 % (0-3); HEMATOCRIT 33.5 % (36.0-47.0); LYMPH # 1.3 x10^3/uL (1.0-4.8); LYMPH % 18 % (24-48); MEAN CORPUSCULAR HEMOGLOBIN 31 pg (25-35); MEAN CORPUSCULAR HGB CONC 33 g/dL (31-37); MEAN CORPUSCULAR VOLUME 94 fL (79-100); MONO # 0.6 x10^3/uL (0.0-1.1); MONO % 8 % (0-9); NEUT % 71 % (31-73); PLATELET COUNT 168 x10^3/uL (140-400); RED BLOOD COUNT 3.59 x10^6/uL (3.50-5.40); RED CELL DISTRIBUTION WIDTH 15.3 % (11.5-14.5); WHITE BLOOD COUNT 7.1 x10^3/uL (4.0-11.0)
[2020-05-31 06:56] LABS: ALBUMIN/GLOBULIN RATIO 1.1 (1.0-1.7); CALCIUM 8.8 mg/dL (8.5-10.1); CREATININE 2.2 mg/dL (0.6-1.0); GFR 22.3; POTASSIUM 3.4 mmol/L (3.5-5.1); TOTAL BILIRUBIN 0.1 mg/dL (0.2-1.0); TOTAL PROTEIN 5.7 g/dL (6.4-8.2)
[2020-05-31] MEDS ORDERED: NON FORMULARY ITEM (Gabapentin 600 MG) PO SCH (07:30)
[2020-05-31] MEDS: CLOPIDOGREL BISULFATE 75 MG TABLET PO SCH (08:01)
[2020-05-31] MEDS: EZETIMIBE 10 MG TABLET PO SCH (08:01)
[2020-05-31] MEDS: LEVOTHYROXINE 100 MCG TABLET PO SCH (08:01)
[2020-05-31] MEDS: VENLAFAXINE 50 MG TABLET. PO SCH ×3 (08:01→22:21)
[2020-05-31] MEDS: LOSARTAN 50 MG TABLET. PO SCH (08:01)
[2020-05-31] MEDS: BACLOFEN 20 MG TABLET PO SCH ×2 (08:02→22:04)
[2020-05-31] MEDS: GABAPENTIN 100 MG CAPSULE. PO SCH (08:02)
[2020-05-31] MEDS: PANTOPRAZOLE 40 MG TABLET. PO SCH (08:02)
[2020-05-31] MEDS ORDERED: NON FORMULARY ITEM (Tiotropium Br/Olodaterol HCl (Stiolto Respimat Inhal Spray) 2 PUFF) INH SCH (09:00)
[2020-05-31 11:01] VITALS: BP 108/71
--- NOTE | 2020-05-31 11:55 | RAD ---
BILATERAL DUPLEX CAROTID SONOGRAPHY History: Reason: left side weakness Technique: Duplex sonography of the cervical portion of both carotid arteries was performed. Real-hortensia e grayscale, color flow Doppler, and Doppler spectral waveform analysis is performed. Findings: Right side: Peak systolic flow velocity of the CCA is 84 cm/sec. Peak systolic flow velocity of the ICA is 146 cm/sec. The ICA/CCA ratio is 1.7. Peak end diastolic flow velocity of the ICA is 50 cm/sec. The peak systolic velocity of the ECA is 112 cm/sec. There is severe heterogeneous plaque in the carotid bulb. There is CCA intimal thickening. Left side: Peak systolic flow velocity of the CCA is 82 cm/sec. Peak systolic flow velocity of the ICA is 152 cm/sec. The ICA/CCA ratio is 1.9. Peak end diastolic flow velocity of the ICA is 52 cm/sec. Peak systolic flow velocity of the ECA is 131 cm/sec. There is severe heterogeneous plaque in the carotid bulb. Vertebral arteries: Bilateral vertebral arteries demonstrate antegrade flow. IMPRESSION: 1. Findings suggest a 50-69 percent stenosis of the bilateral internal carotid arteries. 2. There is severe heterogeneous plaque in the bilateral carotid bulbs. PQRS Compliance Statement - Stenosis calculations for CT, MR and conventional angiography are based u carlos enrique measurement of the distal ICA diameter in accordance with the NASCET methodology. Stenosis calcu lations for carotid ultrasound studies are derived from validated velocity criteria which are known t o correlate with the NASCET methodology. Electronically signed by: Joselito Blackwood MD (05/31/2020 11:52 AM) [id number]
[2020-05-31 14:53] VITALS: BP 92/61
[2020-05-31] MEDS ORDERED: ELECTROLYTE (NON-ICU) PROTOCOL. MC PRN (19:00)
--- NOTE | 2020-05-31 19:11 | HP ---
ADMIT DATE: 05/30/2020 HISTORY OF PRESENT ILLNESS: A 65-year-old female who was brought in for altered mental status. The patient had normal gait, dropping things and was hallucinating. The patient had a history of a stroke and residual left sided deficits. She has also been recently very confused and was difficulty with her gastritis. She also noted the epigastric pain radiates into the substernal area. The patient denies any nausea or vomiting. However, the patient did have some diarrhea and recently was increased on her gabapentin. She also notes her urination feels hot. The patient also has very sleepy, dozing off and somewhat confused, more so here in the last few days. She has been on a gabapentin sustained release. PAST MEDICAL HISTORY: Thyroid disease, glaucoma, tonsillectomy, essential tremors, left sided residual weakness, peripheral neuropathy, headache, cardiac catheterization, anticoagulant therapy, hypercholesterolemia, COPD, p.r.n. oxygen at night, history of colitis, diverticulitis, hysterectomy, C-sections, UTIs, urinary incontinence, fibromyalgia, arthritis, back pain, endocrine disorders, hypothyroidism, thyroidectomy, depression, anxiety, tobacco abuse, tetanus, influenza, pneumococcal, bilateral breast reduction surgeries were done as well. ALLERGIES: THE PATIENT HAS ALLERGY TO BETA BLOCKERS, BETA ADRENERGIC BLOCKERS, PENICILLIN, XANAX, ATORVASTATIN, FLUTICASONE, METOCLOPRAMIDE, ORANGE JUICE, PROPRANOLOL, ROSUVASTATIN, AND TRAMADOL. SOCIAL HISTORY: The patient has about a 36-24-zexf-year history of smoking. Denies alcohol or drug use. She is a full code. REVIEW OF SYSTEMS: The patient markedly confused, not able to answer questions very appropriately and very drowsy. The patient otherwise seems denies chest pain, nausea, vomiting, abdominal pain, melena, hematochezia, hematemesis and neurologically confused and disoriented. PHYSICAL EXAMINATION: GENERAL: Pleasant white female as described above, confused. VITAL SIGNS: Blood pressure 130/70, respiratory rate 18, pulse 90. She is afebrile, oxygen saturation 92% on room air. HEENT: The patient otherwise head was atraumatic, normocephalic. Some mild loss of facial tone on the left side. The patient otherwise eyes were PERRLA, EOMI. Sclerae clear. Mouth and throat: Normal. NECK: Supple, without bruits. LUNGS: Diminished. Poor movement of air. CARDIOVASCULAR: Regular sinus rhythm. ABDOMEN: Soft, diffuse tenderness. No rebounding, no guarding. Positive bowel sounds, no hepatosplenomegaly was noted. EXTREMITIES: No clubbing, cyanosis, nor edema. NEUROLOGIC: The patient was alert; however, she has noted somewhat confused and garbled in her speech, probably secondary to the medications that she was taking. LABORATORY DATA: The patient's labs showed hemoglobin 11 and 33, white count normal. Potassium slightly low at 3.4. Cardiac enzymes negative. Ammonia levels negative. BUN and creatinine 27 and 3.4, came down to 24 and 2.2 showing significant dehydration. Tox screen negative. Urine screen negative. Serology negative for C. diff as she was describing some diarrhea. The patient otherwise glucose stable. IMPRESSION: Therefore, acute change in mental status, acute encephalopathy, hypokalemia, acute on top of chronic renal failure, history of cerebrovascular accident, change in mental status. Carotid Doppler 50-70% blockage bilaterally, heterogeneous carotid plaque noted. Abdominal CT, trace of infiltrate about the right colon, may be seen with colitis, colonic diverticulosis in the left colon and sigmoid colon without diverticulitis. Head CT, no acute intracranial findings noted. PLAN: The patient will be monitored carefully, given IV fluids, replace her potassium. Make further evaluation on her as indicated. TRUDI CORDERO MD DR: TANISHA/silas JOB#: [id number] / [id number]
[2020-05-31 20:12] VITALS: BP 95/64
[2020-05-31] MEDS ORDERED: ROSUVASTATIN CALCIUM 20 MG PO SCH (21:00)
[2020-05-31] MEDS ORDERED: LATANOPROST 0.005% OPHTH SOLUTION 2.5ML BOTTLE. OU SCH (21:00)
[2020-05-31] MEDS ORDERED: SIMVASTATIN 40 MG TABLET. PO SCH (21:00)
[2020-05-31 23:30] VITALS: BP 96/52
[2020-06-01] MEDS: IPRATRPIUM/ALBUTEROL 0.5/2.5MG 3 ML NEBU. NEB SCH ×2 (05:10→12:00)
[2020-06-01] MEDS ORDERED: ACETAMINOPHEN 325 MG TABLET PO PRN (05:30)
[2020-06-01 05:59] VITALS: BP 108/63
[2020-06-01 08:04] LABS: ALBUMIN 2.7 g/dL (3.4-5.0); CALCIUM 8.7 mg/dL (8.5-10.1); CREATININE 1.3 mg/dL (0.6-1.0); GFR 40.9; PHOSPHORUS 2.7 mg/dL (2.6-4.7)
[2020-06-01] MEDS: GABAPENTIN 100 MG CAPSULE. PO SCH (08:39)
[2020-06-01] MEDS: PANTOPRAZOLE 40 MG TABLET. PO SCH (08:39)
[2020-06-01] MEDS: CLOPIDOGREL BISULFATE 75 MG TABLET PO SCH (08:39)
[2020-06-01] MEDS: BACLOFEN 20 MG TABLET PO SCH (08:39)
[2020-06-01] MEDS: LEVOTHYROXINE 100 MCG TABLET PO SCH (08:39)
[2020-06-01] MEDS: LOSARTAN 50 MG TABLET. PO SCH (08:39)
[2020-06-01] MEDS: EZETIMIBE 10 MG TABLET PO SCH (08:39)
[2020-06-01] MEDS: VENLAFAXINE 50 MG TABLET. PO SCH (08:41)
[2020-06-01] MEDS ORDERED: LOSA50TA86 PO (11:13)
[2020-06-01] MEDS ORDERED: NITR100C6 PO (11:13)
[2020-06-01 11:24] VITALS: BP 102/66
--- NOTE | 2020-06-01 20:58 | DS ---
DATE OF DISCHARGE: 06/01/2020 HOSPITAL COURSE: A 65-year-old female who came in through the Emergency Room. The patient was noted to have change in mental status. The patient had been recently very confused, difficult with her abdominal discomfort with her gastritis, markedly was confused, recently was increased on her gabapentin. She has a history of a right-sided CVA with left-sided hemiparesis. The patient also notes urination feels hot. The patient was admitted. She was very confused, disoriented, apparently been placed on a sustained type of gabapentin, which really seemed to affect her. However, she did have a slight decrease in her potassium, but more importantly, she had significant dehydration with her creatinine going from 3.4 down to 1.3 showing marked dehydration and her BUN went down to 13. Sodium, potassium 143 and 4. Blood sugar was stable. Albumin was low at 2.7. Ammonia levels were normal. Her white count was 7.1, hemoglobin 11 and 33. Chemistries, 139/3.8 as indicated. Urine did show large amounts of blood in it and she did have discomfort on urination. C. diff was negative. She had some loose stools. The patient made good progress discontinuing her gabapentin and more importantly hydrating her. FINAL DIAGNOSES: Acute encephalopathy, severe dehydration, acute on top of chronic renal failure, dysuria, history of stroke, history of colitis, stress incontinence, history of tobacco abuse, family history of Simran Gehrig's disease. DISCHARGE MEDICATIONS: Include losartan decreased to 25 mg a day, nitrofurantoin 100 mg b.i.d. for 5 days, baclofen 20 mg b.i.d., Plavix 75 mg daily, diazepam 5 mg b.i.d., Zetia 10, hydrocodone 5/325 p.r.n., Latanoprost for eyedrops, levothyroxine 100 mcg, Zofran 4 mg, Protonix 40 mg, lovastatin 20 mg at bedtime, Stiolto Respimat inhaled spray, Venlafaxine 150 mg daily. Medications that were stopped completely were gabapentin and losartan 50. Interestingly enough, she puts down lovastatin as an allergy, but she is taking it without any problems here in the hospital. ALLERGIES: INCLUDE BETA BLOCKERS, PENICILLINS, XANAX, LIPITOR, FLUTICASONE, METOCLOPRAMIDE, ORANGE JUICE, PROPRANOLOL, TRAMADOL AND LOVASTATIN, although the latter one like I said, she took here in the hospital without any further problems. She was recommended to receive physical and occupational therapy as an outpatient to strengthen her left leg and monitored her gait, which was fairly stable, but she needed to increase strengthen that left leg. She will follow up in 08-17 and follow up accordingly. ANIYAH DR: Kenton TID: [id number]
[2020-06-02] MEDS ORDERED: LEVOTHYROXINE 100 MCG TABLET PO SCH (06:00)
[2020-06-02] MEDS ORDERED: LOSARTAN 25 MG TABLET. PO SCH (09:00)
== END 2020-06-01 12:33 | disposition home or self-care (01) | DRG 70 ==
LOC: ER 14:13 → ICU 18:09 → 1 SOUTH 05-31 17:52
PROVIDERS: ADMIT Family Medicine; ATTEND Family Medicine
DX: G93.41 Metabolic encephalopathy (principal); N17.0 Acute kidney failure with tubular necrosis; I69.354 Hemiplegia and hemiparesis following cerebral infarction affecting left non-dominant side; R44.3 Hallucinations, unspecified; E86.0 Dehydration; Z90.710 Acquired absence of both cervix and uterus; E11.22 Type 2 diabetes mellitus with diabetic chronic kidney disease; E78.00 Pure hypercholesterolemia, unspecified; E78.5 Hyperlipidemia, unspecified; E87.6 Hypokalemia; E89.0 Postprocedural hypothyroidism; I12.9 Hypertensive chronic kidney disease with stage 1 through stage 4 chronic kidney disease, or unspecified chronic kidney disease; K57.30 Diverticulosis of large intestine without perforation or abscess without bleeding; K29.70 Gastritis, unspecified, without bleeding; M79.7 Fibromyalgia; N18.9 Chronic kidney disease, unspecified; F32.9 Major depressive disorder, single episode, unspecified; G43.909 Migraine, unspecified, not intractable, without status migrainosus; T42.6X5A Adverse effect of other antiepileptic and sedative-hypnotic drugs, initial encounter; M19.90 Unspecified osteoarthritis, unspecified site; N39.3 Stress incontinence (female) (male); R26.9 Unspecified abnormalities of gait and mobility; F41.9 Anxiety disorder, unspecified; E11.42 Type 2 diabetes mellitus with diabetic polyneuropathy; J44.9 Chronic obstructive pulmonary disease, unspecified; Z98.891 History of uterine scar from previous surgery; Z82.49 Family history of ischemic heart disease and other diseases of the circulatory system; Z87.891 Personal history of nicotine dependence; Z82.0 Family history of epilepsy and other diseases of the nervous system; Z88.5 Allergy status to narcotic agent; Z88.0 Allergy status to penicillin; Z88.8 Allergy status to other drugs, medicaments and biological substances; Z91.018 Allergy to other foods; Y92.89 Other specified places as the place of occurrence of the external cause
CPT/HCPCS: 36415; 70450; 74176; 80053; 80069; 80307; 81001; 82140; 82803; 83036; 83690; 83735; 83880; 84484; 85025; 87040; 87077; 87086; 87493; 93005; 93880; 94640; G0480; 97116; 97530; 99285-25; J7030

== ENCOUNTER 2020-06-06 17:54 | Inpatient (IN) | payer MEDICARE, MEDICAID ==
[~2020-06-06] VITALS: Ht 154.9 cm; Wt 69.5 kg
[~2020-06-06 17:54] MED LIST changes: +BACL20TA PO; +CLOP75TA PO; +GABA600T7 PO; +LEVO100T5 PO; +LOSA50TA14 PO; +NITR100C6 PO; +ONDA4TAB12 PO; +ROSU20TA28 PO; +TIOT4MIS3 INH; +VENL150C6 PO
[2020-06-06 19:08] LABS: BASO % 1 % (0-3); EOS # 0.1 x10^3/uL (0.0-0.7); EOS % 1 % (0-3); HEMATOCRIT 40.5 % (36.0-47.0); HEMOGLOBIN 13.2 g/dL (12.0-15.5); LYMPH # 1.3 x10^3/uL (1.0-4.8); LYMPH % 27 % (24-48); MEAN CORPUSCULAR HEMOGLOBIN 31 pg (25-35); MEAN CORPUSCULAR HGB CONC 33 g/dL (31-37); MEAN CORPUSCULAR VOLUME 94 fL (79-100); MONO # 0.6 x10^3/uL (0.0-1.1); MONO % 12 % (0-9); NEUT # 2.8 x10^3uL (1.8-7.7); NEUT % 59 % (31-73); PLATELET COUNT 241 x10^3/uL (140-400); RED BLOOD COUNT 4.31 x10^6/uL (3.50-5.40); RED CELL DISTRIBUTION WIDTH 15.7 % (11.5-14.5); WHITE BLOOD COUNT 4.8 x10^3/uL (4.0-11.0)
[2020-06-06 19:33] LABS: CALCIUM 9.1 mg/dL (8.5-10.1); CREATININE 1.5 mg/dL (0.6-1.0); GFR 34.6
[2020-06-06 19:38] LABS: ALBUMIN/GLOBULIN RATIO 1.3 (1.0-1.7); TOTAL BILIRUBIN 0.4 mg/dL (0.2-1.0)
[2020-06-06] MEDS ORDERED: IV NORMAL SALINE 1,000ML 1,000 ML IV ONE (20:00)
--- NOTE | 2020-06-06 20:32 | PHYS DOC ---
Past History Past Medical History: COPD, Stroke, UTI (AIDAN AGOSTO APRN) Past Surgical History: Hysterectomy (AIDAN AGOSTO APRN) Alcohol Use: None Drug Use: None (AIDAN AGOSTO APRN) Adult General Chief Complaint Chief Complaint: NAUSEA/VOMITING/DIARRHEA HPI HPI Patient is a 65-year-old female presents to the emergency department with complaints of ongoing left upper abdominal pain with weakness and intermittent nausea since being released from the hospital here at [place] this past Wednesday. Patient states that she feels nauseated after taking her medication for UTI that was prescribed. Patient states she takes it twice a day for a 10- day regimen. Patient states she started taking it Wednesday evening. Patient states that she continues to feel weak. Patient denies chest pain, patient states that she is always short of breath because she has COPD and there is no new shortness of breath to complain of, patient denies chest congestion, nasal congestion, rashes of her skin. Patient denies any constipation or diarrhea. Patient denies any vomiting, patient states she just dry heaves but nothing comes up. Patient denies any fever or chills at home. Patient denies any other physical complaints or physical concerns. (AIDAN AGOSTO APRN) Review of Systems Review of Systems 14 body systems of review of systems have been reviewed. See HPI for pertinent positives and negative responses, otherwise all other systems are negative, nonpertinent or noncontributory. (AIDAN AGOSTO APRN) Current Medications Current Medications Current Medications Medications (Trade) Dose Ordered Sig/Mahad Start Time Stop Time Status Last Admin Dose Admin Sodium Chloride 1,000 ml @ 1,000 mls/hr 1X ONCE 06/06/20 20:00 06/06/20 20:59 UNV 06/06/20 20:00 1,000 MLS/HR (AIDAN AGOSTO APRN) Allergies Allergies Allergies Coded Allergies Type Severity Reaction Last Updated Verified Beta-Blockers (Beta-Adrenergic Bloc Allergy Severe 06/06/20 Yes orange juice Allergy Severe Swelling 06/06/20 Yes rosuvastatin Allergy Severe patient states crestor seals throat shut 06/06/20 Yes Penicillins Allergy Intermediate 06/06/20 Yes alprazolam Allergy Intermediate 06/06/20 Yes atorvastatin Allergy Intermediate 06/06/20 Yes fluticasone Allergy Intermediate 06/06/20 Yes propranolol Allergy Intermediate 06/06/20 Yes tramadol Allergy Intermediate 06/06/20 Yes metoclopramide Allergy Unknown 06/06/20 Yes sertraline Allergy Unknown 06/06/20 Yes (AIDAN AGOSTO APRN) Physical Exam Physical Exam Constitutional: Well developed, well nourished, no acute distress, non-toxic appearance. 65-year-old female no apparent distress. HENT: Normocephalic, atraumatic, bilateral external ears normal, oropharynx moist, no oral exudates, nose normal. Oropharynx moist, pink, no infectious process appreciated, no lymphadenopathy of the head or neck appreciated, no deformities, depressions, hematomas or other abnormalities of the scalp or head or face appreciated. Eyes: PERRLA, EOMI, conjunctiva normal, no discharge. Neck: Normal range of motion, no tenderness, supple, no stridor. No midline spinal tenderness, no nuchal rigidity, no meningismus signs. Cardiovascular:Heart rate regular rhythm, no murmur heart sounds S1-S2 to auscultation. Lungs & Thorax: Bilateral breath sounds clear to auscultation all lung zamudio, no adventitious lung sounds appreciated. Pain elicited to palpation along the left lower ribs of thorax, no crepitus appreciated, no bruising appreciated. Abdomen: Bowel sounds normal, soft, no tenderness, no masses, no pulsatile masses. No areas of ecchymosis or bruising appreciated of the abdomen. Skin: Warm, dry, no erythema, no rash. Back: No tenderness, no CVA tenderness. Extremities: No tenderness, no cyanosis, no clubbing, ROM intact, no edema. Neurologic: Alert and oriented X 3, normal motor function, normal sensory function, no focal deficits noted. Psychologic: Affect normal, judgement normal, mood normal. (AIDAN AGOSTO APRN) Current Patient Data Vital Signs Vital Signs Date Time Temp Pulse Resp B/P (MAP) Pulse Ox O2 Delivery O2 Flow Rate FiO2 06/06/20 18:05 97.7 94 20 103/73 (83) 93 Lab Results Laboratory Tests Test 06/06/20 18:40 White Blood Count 4.8 x10^3/uL (4.0-11.0) Red Blood Count 4.31 x10^6/uL (3.50-5.40) Hemoglobin 13.2 g/dL (12.0-15.5) Hematocrit 40.5 % (36.0-47.0) Mean Corpuscular Volume 94 fL (79-100) Mean Corpuscular Hemoglobin 31 pg (25-35) Mean Corpuscular Hemoglobin Concent 33 g/dL (31-37) Red Cell Distribution Width 15.7 % (11.5-14.5) H Platelet Count 241 x10^3/uL (140-400) Neutrophils (%) (Auto) 59 % (31-73) Lymphocytes (%) (Auto) 27 % (24-48) Monocytes (%) (Auto) 12 % (0-9) H Eosinophils (%) (Auto) 1 % (0-3) Basophils (%) (Auto) 1 % (0-3) Neutrophils # (Auto) 2.8 x10^3uL (1.8-7.7) Lymphocytes # (Auto) 1.3 x10^3/uL (1.0-4.8) Monocytes # (Auto) 0.6 x10^3/uL (0.0-1.1) Eosinophils # (Auto) 0.1 x10^3/uL (0.0-0.7) Basophils # (Auto) 0.0 x10^3/uL (0.0-0.2) Sodium Level 140 mmol/L (136-145) Potassium Level 4.0 mmol/L (3.5-5.1) Chloride Level 103 mmol/L (98-107) Carbon Dioxide Level 27 mmol/L (21-32) Anion Gap 10 (6-14) Blood Urea Nitrogen 14 mg/dL (7-20) Creatinine 1.5 mg/dL (0.6-1.0) H Estimated GFR (Cockcroft-Gault) 34.6 BUN/Creatinine Ratio 9 (6-20) Glucose Level 96 mg/dL (70-99) Lactic Acid Level 1.5 mmol/L (0.4-2.0) Calcium Level 9.1 mg/dL (8.5-10.1) Total Bilirubin 0.4 mg/dL (0.2-1.0) Aspartate Amino Transferase (AST) 29 U/L (15-37) Alanine Aminotransferase (ALT) 27 U/L (14-59) Alkaline Phosphatase 71 U/L (46-116) Total Protein 7.0 g/dL (6.4-8.2) Albumin 4.0 g/dL (3.4-5.0) Albumin/Globulin Ratio 1.3 (1.0-1.7) Lipase 74 U/L (73-393) (AIDAN AGOSTO APRN) Lab Results Laboratory Tests Test 06/06/20 18:40 06/06/20 19:45 White Blood Count 4.8 x10^3/uL Red Blood Count 4.31 x10^6/uL Hemoglobin 13.2 g/dL Hematocrit 40.5 % Mean Corpuscular Volume 94 fL Mean Corpuscular Hemoglobin 31 pg Mean Corpuscular Hemoglobin Concent 33 g/dL Red Cell Distribution Width 15.7 % Platelet Count 241 x10^3/uL Neutrophils (%) (Auto) 59 % Lymphocytes (%) (Auto) 27 % Monocytes (%) (Auto) 12 % Eosinophils (%) (Auto) 1 % Basophils (%) (Auto) 1 % Neutrophils # (Auto) 2.8 x10^3uL Lymphocytes # (Auto) 1.3 x10^3/uL Monocytes # (Auto) 0.6 x10^3/uL Eosinophils # (Auto) 0.1 x10^3/uL Basophils # (Auto) 0.0 x10^3/uL Sodium Level 140 mmol/L Potassium Level 4.0 mmol/L Chloride Level 103 mmol/L Carbon Dioxide Level 27 mmol/L Anion Gap 10 Blood Urea Nitrogen 14 mg/dL Creatinine 1.5 mg/dL Estimated GFR (Cockcroft-Gault) 34.6 BUN/Creatinine Ratio 9 Glucose Level 96 mg/dL Lactic Acid Level 1.5 mmol/L Calcium Level 9.1 mg/dL Total Bilirubin 0.4 mg/dL Aspartate Amino Transf (AST/SGOT) 29 U/L Alanine Aminotransferase (ALT/SGPT) 27 U/L Alkaline Phosphatase 71 U/L Total Protein 7.0 g/dL Albumin 4.0 g/dL Albumin/Globulin Ratio 1.3 Lipase 74 U/L Urine Collection Type Unknown Urine Color Brown Urine Clarity Turbid Urine pH Urine Specific [place] Urine Protein Urine Glucose (UA) mg/dL Urine Ketones (Stick) mg/dL Urine Blood Urine Nitrite Urine Bilirubin Urine Urobilinogen Dipstick mg/dL Urine Leukocyte Esterase Urine RBC 0 /HPF Urine WBC 0 /HPF Urine Squamous Epithelial Cells None /LPF Urine Amorphous Sediment Present /HPF Urine Bacteria Many /HPF Current Medications Medications (Trade) Dose Ordered Sig/Mahad Route PRN Reason Start Time Stop Time Status Last Admin Dose Admin Sodium Chloride 1,000 ml @ 1,000 mls/hr 1X ONCE IV 06/06/20 20:00 06/06/20 20:59 DC 06/06/20 20:00 (HEAVENLY WHEAT DO) EKG EKG [] (AIDAN AGOSTO APRN) Radiology/Procedures Radiology/Procedures [] (AIDAN AGOSTO APRN) Heart Score C/O Chest Pain: No Risk Factors: Risk Factors: DM, Current or recent (<one month) smoker, HTN, HLP, family history of CAD, obesity. Risk Scores: Risk Factors: DM, Current or recent (<one month) smoker, HTN, HLP, family history of CAD, obesity. (AIDAN AGOSTO APRN) Course & Med Decision Making Course & Med Decision Making Pertinent Labs and Imaging studies reviewed. (See chart for details) 65-year-old female, vital signs reviewed, presents to the emergency department with daughter at bedside with complaints of ongoing abdominal pain, nausea, and weakness at home since being discharged from [facility] this past Wednesday. Physical examination concerning for contusion of left lower ribs area. Related to patient being admitted for urinary tract infection and confusion earlier this week, a cath UA was ordered, CBC, CMP, lipase, saline lock. Patient's primary registered nurse reported dark urine with cath UA, concerning for dehydration a liter of normal saline was ordered IV. Other labs pending at this time to determine imaging. Off going to shift report given to ED attending Dr. Wheat who was assumed care of patient at this time. (AIDAN AGOSTO APRN) Course & Med Decision Making I oversaw the care of patient while in ER and discussed case with COLLECTIONS CURATOR at time of his shift ending I reviewed ER work-up and agree with what was ordered. I personally evaluated patient and repeated certain aspects of history and physical exam. Patient who was recently discharged from our hospital and put on Macrobid in outpatient setting for UTI with ongoing UTI-like symptoms UA obtained today was turbid, this in conjunction with symptoms concerns me for inadequately treated UTI. I discussed my concern with patient and daughter at bedside who is primary caregiver, she is fearful she cannot give adequate care for patient and current condition at home I contacted patient's PCP who also will serve as hospitalist and discussed our concerns, he agreed need for admission to [facility] for inpatient management of UTI and further care I updated patient and daughter on proposed plan of care that included starting 1 g IV Rocephin and admitting patient, they were both amenable. Patient and daughter reiterates she is full CODE STATUS. All questions and concerns addressed prior to departure for admission Critical Care Time This patient required critical care. Due to the fact that the patient required a significant amount of one on one physician - patient contact time, ordering and review of studies, arranging urgent treatment with development of a management plan, evaluation of patients response to treatment with frequent reassessments, and discussions with other providers this patient required 40 minutes of critical care time. Critical care time was indicated due to the inherent instability and/or potential for instability in this patient. The critical care time that is allocated to this patient is above and beyond any time spent on any other billable procedures performed on this patient. (HEAVENLY WHEAT DO) Dragon Disclaimer Dragon Disclaimer This electronic medical record was generated, in whole or in part, using a voice recognition dictation system. (AIDAN AGOSTO APRN) Departure Departure: Impression: Primary Impression: UTI (urinary tract infection) Additional Impression: Weakness Disposition: ADMITTED INPATIENT Admitting Physician: Trudi Cordero (HEAVENLY WHEAT DO) Condition: STABLE Referrals: TRUDI CORDERO MD (PCP) Problem Qualifiers AIDAN AGOSTO APRN Jun 06, 2020 20:32 HEAVENLY WHEAT DO Jun 06, 2020 21:06
[2020-06-06 20:34] LABS: BACTERIA,URINE MANY /HPF (0-FEW); CLARITY,URINE TURBID; COLOR,URINE BROWN; RBC,URINE 0 /HPF (0-2); WBC,URINE 0 /HPF (0-4)
[2020-06-06 20:35] LABS: AMORPHOUS SEDIMENT,UR PRESENT /HPF
[2020-06-06] MEDS ORDERED: ACETAMINOPHEN 325 MG TABLET PO PRN (21:15)
[2020-06-06] MEDS ORDERED: IV NORMAL SALINE 50ML 50 ML ONE (22:30)
[2020-06-06] MEDS ORDERED: cefTRIAXone SODIUM 1 GM VIAL ONE (22:31)
[2020-06-06 23:26] VITALS: BP 128/69
[2020-06-06] MEDS: IV NORMAL SALINE 1,000ML 1,000 ML IV SCH (23:30)
[2020-06-06] MEDS ORDERED: ONDANSETRON PF 4 MG/2 ML VIAL. ONE (23:39)
[2020-06-06] MEDS: ONDANSETRON PF 4 MG/2 ML VIAL. IVP PRN (23:43)
[2020-06-07 06:35] VITALS: BP 114/66
[2020-06-07] MEDS ORDERED: diazePAM 5 MG TABLET. PO PRN (07:00)
[2020-06-07] MEDS ORDERED: HYDROcodone/APAP 5/325MG 1 TAB TABLET PO PRN (07:00)
[2020-06-07] MEDS ORDERED: ONDANSETRON ODT 4 MG TAB.RAPDIS PO PRN (07:00)
[2020-06-07] MEDS ORDERED: NON FORMULARY ITEM (Tiotropium Br/Olodaterol HCl (Stiolto Respimat Inhal Spray) 2 PUFF) INH SCH (09:00)
[2020-06-07] MEDS: CLOPIDOGREL BISULFATE 75 MG TABLET PO SCH (09:14)
[2020-06-07] MEDS: VENLAFAXINE 50 MG TABLET. PO SCH ×3 (09:14→20:48)
[2020-06-07] MEDS: EZETIMIBE 10 MG TABLET PO SCH (09:14)
[2020-06-07] MEDS: ONDANSETRON PF 4 MG/2 ML VIAL. IVP PRN (09:14)
[2020-06-07] MEDS: PANTOPRAZOLE 40 MG TABLET. PO SCH (09:14)
[2020-06-07] MEDS: LEVOTHYROXINE 100 MCG TABLET PO SCH (09:14)
[2020-06-07] MEDS: BACLOFEN 20 MG TABLET PO SCH ×2 (09:14→20:48)
[2020-06-07] MEDS ORDERED: ALBUTEROL SULFATE 2.5 MG/3 ML NEBU. NEB PRN (09:15)
[2020-06-07] MEDS: IV NORMAL SALINE 1,000ML 1,000 ML IV SCH ×2 (09:17→19:30)
[2020-06-07] MEDS ORDERED: MAG HYDROX/AL HYDROX/SIMETH 30 ML ORAL.SUSP PO PRN (09:45)
[2020-06-07] MEDS ORDERED: PROCHLORPERAZINE 5 MG TABLET. PO PRN (09:45)
[2020-06-07] MEDS ORDERED: PROCHLORPERAZINE 10 MG/2 ML VIAL. IV PRN (10:15)
[2020-06-07 12:01] VITALS: BP 133/79
[2020-06-07] MEDS: LOSARTAN 25 MG TABLET. PO SCH (13:02)
--- NOTE | 2020-06-07 14:18 | RAD ---
EXAM: Abdomen and pelvis CT without intravenous contrast. HISTORY: Epigastric pain. TECHNIQUE: Computed tomographic images of the abdomen and pelvis were obtained without contrast. Mult iplanar reformatting was performed. *One or more of the following individualized dose reduction techniques were utilized for this examina tion: 1. Automated exposure control. 2. Adjustment of the mA and/or kV according to patient size. 3. Use of iterative reconstruction technique. COMPARISON: 09/18/2018. FINDINGS: Evaluation of the lower thorax demonstrates mild pulmonary emphysema. There is basilar atel ectasis. There is no infiltrate or pleural effusion. There are benign coarse calcifications within th e inferior right breast. There is a tiny benign-appearing nodule within the inferior left breast. No hepatic lesion is seen. The gallbladder, pancreas, spleen, adrenal glands and kidneys are unremarkabl e. No abnormally thickened or dilated loop of bowel is seen. There is distal colonic diverticulosis. The bladder is nearly empty. The uterus is absent. There is aortobiiliac atherosclerosis. There is no ly mphadenopathy. There is no suspicious or acute osseous finding. IMPRESSION: 1. Distal colonic diverticulosis. 2. No convincing acute abdominal or pelvic finding. Electronically signed by: Catarina Plascencia MD (06/07/2020 2:15 PM) [id number]
[2020-06-07 18:01] VITALS: BP 98/53
[2020-06-07 19:00] VITALS: BP 91/57
[2020-06-07] MEDS: IPRATRPIUM/ALBUTEROL 0.5/2.5MG 3 ML NEBU. NEB SCH (20:10)
[2020-06-07] MEDS: LATANOPROST 0.005% OPHTH SOLUTION 2.5ML BOTTLE. OU SCH (20:48)
[2020-06-07] MEDS: LACTOBACILLUS RHAMNOSUS GG 1 CAPSULE. PO SCH (20:48)
[2020-06-07] MEDS: SIMVASTATIN 40 MG TABLET. PO SCH (20:48)
[2020-06-07 23:03] VITALS: BP 110/74
--- NOTE | 2020-06-08 00:44 | HP ---
ADMIT DATE: 06/06/2020 HISTORY OF PRESENT ILLNESS: A 65-year-old female came in with severe nausea, vomiting, epigastric pain unlike she has had before. The patient last couple days have been ill and as a result of this the patient was admitted to the hospital for further evaluation and treatment thereof with high rehydration as she was markedly dehydrated. 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 Tetanus, influenza and pneumococcal vaccines are up to date. Bilateral breast reduction surgeries were done as well. ALLERGIES: BETA-BLOCKERS, BETA-ADRENERGIC RUBY, PENICILLIN, XANAX, LIPITOR, FLUTICASONE, METOCLOPRAMIDE ORANGE JUICE, PROPRANOLOL, ROSUVASTATIN AND TRAMADOL. SOCIAL HISTORY: The patient has a 40-50 pack year history of smoking. Denies alcohol or drug use. Full code. REVIEW OF SYSTEMS: The patient complains of epigastric pain with nausea and unable to keep foods or medications down. The patient otherwise denies chest pain per se or shortness of breath. The patient denies any melena, hematochezia, hematemesis. Neurologically, alert and baseline for her. Still residual weakness of course on the left side. PHYSICAL EXAMINATION: VITAL SIGNS: The patient's vital signs include blood pressure 133/80, respiratory rate 20, pulse 80, afebrile. The patient is 97 on room air. GENERAL: The patient is alert and oriented, complaining of nausea and epigastric pain. HEENT: The patient's head was atraumatic, normocephalic. Eyes PERRL. MOUTH AND THROAT: Poor dentition. NECK: Supple, no JVD, carotid bruit or thyromegaly. LUNGS: Diminished throughout, poor movement of air, but basically clear throughout. CVR: Regular sinus rhythm, S1, S2, without murmur, rub, thrill, or extra heart sounds. ABDOMEN: Soft, nontender except in the epigastric area where there was noticeable tenderness as well as a problem with guarding, but no rebound and positive bowel sounds, no hepatosplenomegaly, no bruits noted. EXTREMITIES: No clubbing, cyanosis, nor edema. NEUROLOGIC: The patient is alert and oriented. Baseline left-sided weakness, although appropriate speech, answers questions. Seems to be alert and oriented at the present time. IMPRESSION Abdominal pain, epigastric; dehydration with nausea and vomiting; renal insufficiency; chronic kidney disease stage IIIA. Patient continued to be monitored carefully and make further evaluation on her as indicated for her epigastric pain, fluids for hydration and probable repeat CT abdomen and pelvis to make sure everything remains basically stable. TANISHA/VANE DR: Kenton TID: [id number]
[2020-06-08] MEDS: IPRATRPIUM/ALBUTEROL 0.5/2.5MG 3 ML NEBU. NEB SCH ×4 (05:00→20:00)
[2020-06-08] MEDS: IV NORMAL SALINE 1,000ML 1,000 ML IV SCH ×2 (05:39→20:06)
[2020-06-08 06:42] VITALS: BP 115/75
[2020-06-08] MEDS: CLOPIDOGREL BISULFATE 75 MG TABLET PO SCH (08:25)
[2020-06-08] MEDS: EZETIMIBE 10 MG TABLET PO SCH (08:25)
[2020-06-08] MEDS: LACTOBACILLUS RHAMNOSUS GG 1 CAPSULE. PO SCH ×2 (08:25→21:46)
[2020-06-08] MEDS: LEVOTHYROXINE 100 MCG TABLET PO SCH (08:25)
[2020-06-08] MEDS: PANTOPRAZOLE 40 MG TABLET. PO SCH (08:25)
[2020-06-08] MEDS: LOSARTAN 25 MG TABLET. PO SCH (08:25)
[2020-06-08] MEDS: VENLAFAXINE 50 MG TABLET. PO SCH ×3 (08:26→21:47)
[2020-06-08] MEDS: BACLOFEN 20 MG TABLET PO SCH ×2 (08:26→21:46)
[2020-06-08] MEDS: FAMOTIDINE 20 MG TABLET PO SCH (10:58)
[2020-06-08 11:22] VITALS: BP 118/73
[2020-06-08] MEDS ORDERED: ACETAMINOPHEN 325 MG TABLET PO ONE (15:00)
[2020-06-08 19:00] VITALS: BP 111/66
[2020-06-08] MEDS: CYCLOBENZAPRINE 10 MG TABLET. PO PRN (21:46)
[2020-06-08] MEDS: SIMVASTATIN 40 MG TABLET. PO SCH (21:46)
[2020-06-08] MEDS: LATANOPROST 0.005% OPHTH SOLUTION 2.5ML BOTTLE. OU SCH (21:47)
[2020-06-09] MEDS: IV NORMAL SALINE 1,000ML 1,000 ML IV SCH ×3 (01:30→20:36)
[2020-06-09] MEDS: IPRATRPIUM/ALBUTEROL 0.5/2.5MG 3 ML NEBU. NEB SCH ×4 (05:00→20:00)
[2020-06-09 05:28] VITALS: BP 130/80
[2020-06-09] MEDS: LOSARTAN 25 MG TABLET. PO SCH (07:45)
[2020-06-09] MEDS: EZETIMIBE 10 MG TABLET PO SCH (07:45)
[2020-06-09] MEDS: PANTOPRAZOLE 40 MG TABLET. PO SCH (07:45)
[2020-06-09] MEDS: FAMOTIDINE 20 MG TABLET PO SCH (07:45)
[2020-06-09] MEDS: LACTOBACILLUS RHAMNOSUS GG 1 CAPSULE. PO SCH ×2 (07:45→20:25)
[2020-06-09] MEDS: CLOPIDOGREL BISULFATE 75 MG TABLET PO SCH (07:45)
[2020-06-09] MEDS: LEVOTHYROXINE 100 MCG TABLET PO SCH (07:45)
[2020-06-09] MEDS: VENLAFAXINE 50 MG TABLET. PO SCH ×3 (07:46→20:26)
[2020-06-09] MEDS: BACLOFEN 20 MG TABLET PO SCH ×2 (07:46→20:25)
--- NOTE | 2020-06-09 08:24 | PN ---
SUBJECTIVE: A 65-year-old female, still continuing to have abdominal pain in her mid epigastric area. Still nauseated, still receiving fluids. The patient has made some progress, feeling a little bit better, but because of her nausea to adjust her medication and make further evaluation on her. OBJECTIVE: VITAL SIGNS: Blood pressure 120/70, respiratory rate 18, pulse 100, afebrile. Room air 95%. GENERAL: The patient is alert and oriented. Lungs are diminished. States she feels a little better, but still complains of this epigastric pain. LUNGS: Clear. CARDIOVASCULAR: Regular sinus rhythm. ABDOMEN: Epigastric area is tender and some slight guarding, but no rebound. Pretty much ____. EXTREMITIES: No clubbing, cyanosis or edema. NEUROLOGIC: Alert, baseline for her. ASSESSMENT: Abdominal pain, epigastric pain, dehydration with nausea, vomiting, renal insufficiency, chronic kidney disease ____. Continue on fluids and adjust her medications ____ may need a GI evaluation. TRAE/EMILY DR: Kenton TID: [id number]
[2020-06-09 08:47] LABS: CALCIUM 8.2 mg/dL (8.5-10.1); CREATININE 0.8 mg/dL (0.6-1.0); GFR 71.5; POTASSIUM 3.7 mmol/L (3.5-5.1)
[2020-06-09 11:32] VITALS: BP 118/78
[2020-06-09 15:09] VITALS: BP 125/84
[2020-06-09] MEDS ORDERED: ACETAMINOPHEN 325 MG TABLET PO PRN (15:15)
[2020-06-09] MEDS ORDERED: PANTOPRAZOLE 40 MG TABLET. PO ONE (19:30)
[2020-06-09 19:42] VITALS: BP 142/86
[2020-06-09] MEDS: SIMVASTATIN 40 MG TABLET. PO SCH (20:25)
[2020-06-09] MEDS: LATANOPROST 0.005% OPHTH SOLUTION 2.5ML BOTTLE. OU SCH (20:27)
[2020-06-09] MEDS: CYCLOBENZAPRINE 10 MG TABLET. PO PRN (22:00)
--- NOTE | 2020-06-10 01:47 | PN ---
DATE: 06/09/2020 SUBJECTIVE: A 65-year-old female with abdominal pain, although she is better she is still complaining of epigastric pain fairly significantly. The patient's abdominal CT did not show anything in particular. We have given her the Prilosec as well, Protonix as well as Pepcid 20 mg twice daily. We will continue to monitor. OBJECTIVE: VITAL SIGNS: Blood pressure 125/80, respiratory rate 18, pulse 85, afebrile. GENERAL: The patient is alert and oriented. LUNGS: Diminished, poor movement of air. ABDOMEN: Soft, specifically in the epigastric area. Slight guarding, but no rebounding. The patient had positive bowel sounds. EXTREMITIES: No clubbing, cyanosis or edema. NEUROLOGIC: Intact. Patient continues to make a reasonably good progress. LABORATORY DATA: Sodium 147. Showing slightly signs of dehydration. IMPRESSION: Epigastric pain, nausea, vomiting, dehydration. HANNY DR: Kenton TID: [id number]
[2020-06-10 06:09] VITALS: BP 167/109
[2020-06-10] MEDS ORDERED: PANTOPRAZOLE 40 MG TABLET. PO SCH (07:30)
[2020-06-10] MEDS: IPRATRPIUM/ALBUTEROL 0.5/2.5MG 3 ML NEBU. NEB SCH ×2 (08:00→11:06)
[2020-06-10] MEDS: BACLOFEN 20 MG TABLET PO SCH (08:48)
[2020-06-10] MEDS: LACTOBACILLUS RHAMNOSUS GG 1 CAPSULE. PO SCH (08:48)
[2020-06-10] MEDS: FAMOTIDINE 20 MG TABLET PO SCH (08:48)
[2020-06-10] MEDS: EZETIMIBE 10 MG TABLET PO SCH (08:48)
[2020-06-10] MEDS: CLOPIDOGREL BISULFATE 75 MG TABLET PO SCH (08:49)
[2020-06-10] MEDS: LOSARTAN 25 MG TABLET. PO SCH (08:49)
[2020-06-10] MEDS: LEVOTHYROXINE 100 MCG TABLET PO SCH (08:49)
[2020-06-10] MEDS: VENLAFAXINE 50 MG TABLET. PO SCH (08:49)
[2020-06-10] MEDS: IV NORMAL SALINE 1,000ML 1,000 ML IV SCH (09:00)
[2020-06-10 10:58] VITALS: BP 134/85
[2020-06-10] MEDS ORDERED: FAMO20TA5 PO (12:51)
[2020-06-10] MEDS ORDERED: metroNIDAZOLE 500 MG TABLET PO SCH (21:00)
--- NOTE | 2020-06-12 14:27 | DS ---
DATE OF DISCHARGE: 06/10/2020 HOSPITAL COURSE: A 65-year-old female who came in with severe nausea, vomiting, epigastric pain. The patient for a couple days has been ill and was unable to keep anything down. She was in treatment of dehydration and follow up on her epigastric pain. The patient is also a heavy smoker. She had a CT scan, everything there was basically normal. Placed her on Protonix as well as Pepcid twice a day and continue to monitor her on that. She will need to be seen as an outpatient by the GI Clinic and arrangements were made for her to be seen by Gastroenterology at ____ [facility] The patient had no complaints on discharge. She was eating and drinking full meals when she left and had no further problems that she discussed with anybody. The patient will be discharged, encouraged to stop smoking and follow up accordingly with primary as well as her GI doctor. IMPRESSION AND PLAN: Dehydration with nausea, vomiting, abdominal pain, epigastric, chronic kidney disease stage 3A, emphysema, history of colitis. The patient will be followed up. She will be on a regular diet, decreased activity and have her follow up as noted above. See NICANOR. TANISHA/[facility] DR: TANISHA/silas TID: [id number]
== END 2020-06-10 13:35 | disposition home health service (06) | DRG 371 ==
LOC: ER 17:54 → ICU 21:06 → 1 SOUTH 06-08 16:11
PROVIDERS: ADMIT Family Medicine; ATTEND Family Medicine
DX: A04.9 Bacterial intestinal infection, unspecified (principal); N17.0 Acute kidney failure with tubular necrosis; E86.0 Dehydration; N18.31 Chronic kidney disease, stage 3a; J43.9 Emphysema, unspecified; F17.200 Nicotine dependence, unspecified, uncomplicated; E78.00 Pure hypercholesterolemia, unspecified; G25.0 Essential tremor; Z90.710 Acquired absence of both cervix and uterus; Z88.0 Allergy status to penicillin; Z88.8 Allergy status to other drugs, medicaments and biological substances; Z91.018 Allergy to other foods; Z88.5 Allergy status to narcotic agent; Z86.73 Personal history of transient ischemic attack (TIA), and cerebral infarction without residual deficits
CPT/HCPCS: 36415; 74176; 80048; 80053; 81001; 83605; 83690; 85025; 87086; 94640; 96361; 96365; J0696; J0780; J2405; J3490; 97110; 97116; 97530; 97535; 99291-25; J7030

== ENCOUNTER 2020-08-22 14:36 | Inpatient (IN) | payer MEDICARE, MEDICAID ==
[~2020-08-22] VITALS: Ht 154.9 cm; Wt 63.5 kg
[~2020-08-22 14:36] MED LIST changes: +FAMO20TA5 PO
--- NOTE | 2020-08-22 15:20 | PHYS DOC ---
Past History Past Medical History: COPD, Stroke, UTI Additional Past Medical Histor: Chronic back issues Past Surgical History: Hysterectomy Alcohol Use: None Drug Use: None General Adult EDM: Chief Complaint: SHORTNESS OF BREATH HPI: HPI: 65-year-old female presents with cough and shortness of breath. She has had the symptoms for about a week. She has been feeling more and more weak and decided to come in for evaluation. She has home health who came to see her and thinks she might need antibiotic. She has a yellowish phlegm that she coughs up. The patient is not vaccinated for COVID-19. She has a history of COPD and asthma. She uses breathing treatments daily. She also has home oxygen for nighttime. She has been using it sometimes during the day the last few days. She does not believe she has had a fever. Review of Systems: Review of Systems: Constitutional: Denies fever or chills. Weakness. Eyes: Denies change in visual acuity HENT: Denies nasal congestion or sore throat Respiratory: Productive cough with shortness of breath Cardiovascular: Denies chest pain or edema GI: Denies abdominal pain, nausea, vomiting, bloody stools or diarrhea : Denies dysuria Musculoskeletal: Denies back pain or joint pain Integument: Denies rash Neurologic: Denies headache, focal weakness or sensory changes Endocrine: Denies polyuria or polydipsia Lymphatic: Denies swollen glands Psychiatric: Denies depression or anxiety Allergies: Allergies: Allergies Coded Allergies Type Severity Reaction Last Updated Verified Beta-Blockers (Beta-Adrenergic Bloc Allergy Severe 06/06/20 Yes orange juice Allergy Severe Swelling 06/06/20 Yes rosuvastatin Allergy Severe patient states crestor seals throat shut 06/06/20 Yes Penicillins Allergy Intermediate 06/06/20 Yes fluticasone Allergy Intermediate 06/06/20 Yes propranolol Allergy Intermediate 06/06/20 Yes metoclopramide Allergy Unknown 06/06/20 Yes alprazolam Adverse Reaction Intermediate 06/06/20 Yes atorvastatin Adverse Reaction Intermediate 06/06/20 Yes tramadol Adverse Reaction Intermediate 06/06/20 Yes sertraline Adverse Reaction Unknown 06/06/20 Yes Physical Exam: PE: Constitutional: Well developed, well nourished, no acute distress, non-toxic appearance. [] HENT: Normocephalic, atraumatic, bilateral external ears normal, oropharynx moist, no oral exudates, nose normal. [] Eyes: PERRLA, EOMI, conjunctiva normal, no discharge. [] Neck: Normal range of motion, no tenderness, supple, no stridor. [] Cardiovascular: Heart rate 103, regular rhythm, no murmur [] Lungs & Thorax: Bilateral breath sounds diminished throughout. No obvious wheezing. [] Abdomen: Bowel sounds normal, soft, no tenderness, no masses, no pulsatile masses. [] Skin: Warm, dry, no erythema, no rash. [] Back: No tenderness, no CVA tenderness. [] Extremities: No tenderness, no cyanosis, no clubbing, ROM intact, no edema. [] Neurologic: Alert and oriented X 3, normal motor function, normal sensory function, no focal deficits noted. [] Psychologic: Affect normal, judgement normal, mood normal. [] Current Patient Data: Vital Signs: Vital Signs Date Time Temp Pulse Resp B/P (MAP) Pulse Ox O2 Delivery O2 Flow Rate FiO2 08/22/20 14:49 98.3 98 16 116/70 93 Room Air EKG: EKG: Sinus tachycardia, rate 103, normal axis, no ST elevation or depression. [] Radiology/Procedures: Radiology/Procedures: [] Impressions: EXAMINATION: XR CHEST 1V CLINICAL HISTORY: Shortness of breath EXAM DATE/TIME: 08/22/2020 2:50 PM COMPARISON: None FINDINGS: Lines, Tubes, and Devices: None. Cardiomediastinal Silhouette: Normal heart size. Aortic atherosclerotic calcification. Lungs and Pleura: No evidence of focal airspace consolidation or pleural effusion. Pulmonary vasculature unremarkable. Bones and Soft Tissues: Degenerative changes of the thoracic spine. IMPRESSION: No evidence of acute cardiopulmonary abnormality. Electronically signed by: Tito Patten DO (08/22/2020 3:46 PM) [id number] DICTATED AND SIGNED BY: TITO PATTEN DO DATE: 08/22/20 1546 CC: TEREZA JARQUIN DO; SHELBY GAMBOA MD ~MTH0 0 Heart Score: C/O Chest Pain: No Risk Factors: Risk Factors: DM, Current or recent (<one month) smoker, HTN, HLP, family history of CAD, obesity. Risk Scores: Score 0 - 3: 2.5% MACE over next 6 weeks - Discharge Home Score 4 - 6: 20.3% MACE over next 6 weeks - Admit for Clinical Observation Score 7 - 10: 72.7% MACE over next 6 weeks - Early Invasive Strategies Course & Med Decision Making: Course & Med Decision Making Pertinent Labs and Imaging studies reviewed. (See chart for details) The patient's EKG is unremarkable. Her labs are unremarkable. Her troponin is negative. Her chest x-ray is negative for acute findings. It does appear consistent with COPD. I have given the patient 125 Solu-Medrol and DuoNeb treatment. Not sure why she is feeling so weak. I will admit the patient to the hospital for COPD exacerbation and weakness. I have spoken to the hospital ist, Dr. Galaviz and he has accepted the patient for admission. [] Umm Disclaimer: Umm Disclaimer: This electronic medical record was generated, in whole or in part, using a voice recognition dictation system. Departure Departure: Impression: Primary Impression: COPD (chronic obstructive pulmonary disease) Qualified Codes: J44.1 - Chronic obstructive pulmonary disease with (acute) exacerbation Disposition: 02 SHORT TERM HOSPITAL Admitting Physician: Kristie Galaviz Condition: STABLE Referrals: SHELBY GAMBOA MD (PCP) TEREZA JARQUIN DO Aug 22, 2020 15:20
[2020-08-22 15:24] LABS: BASO % 1 % (0-3); EOS # 0.2 x10^3/uL (0.0-0.7); EOS % 2 % (0-3); HEMATOCRIT 36.5 % (36.0-47.0); HEMOGLOBIN 12.1 g/dL (12.0-15.5); LYMPH % 13 % (24-48); MEAN CORPUSCULAR HEMOGLOBIN 31 pg (25-35); MEAN CORPUSCULAR HGB CONC 33 g/dL (31-37); MEAN CORPUSCULAR VOLUME 94 fL (79-100); MONO # 0.5 x10^3/uL (0.0-1.1); MONO % 7 % (0-9); NEUT # 5.8 x10^3uL (1.8-7.7); NEUT % 77 % (31-73); PLATELET COUNT 212 x10^3/uL (140-400); RED BLOOD COUNT 3.89 x10^6/uL (3.50-5.40); RED CELL DISTRIBUTION WIDTH 15.7 % (11.5-14.5); WHITE BLOOD COUNT 7.5 x10^3/uL (4.0-11.0)
[2020-08-22] MEDS ORDERED: IPRATRPIUM/ALBUTEROL 0.5/2.5MG 3 ML NEBU. NEB ONE (15:30)
[2020-08-22] MEDS ORDERED: methylPREDNISolone SOD SUCC PF 125 MG/2 ML VIAL. IV ONE (15:30)
[2020-08-22 15:40] LABS: CALCIUM 9.2 mg/dL (8.5-10.1); CREATININE 0.9 mg/dL (0.6-1.0); GFR 62.5; POTASSIUM 3.8 mmol/L (3.5-5.1)
[2020-08-22 15:47] LABS: ALBUMIN 3.3 g/dL (3.4-5.0); ALBUMIN/GLOBULIN RATIO 1.3 (1.0-1.7); TOTAL BILIRUBIN 0.3 mg/dL (0.2-1.0); TOTAL PROTEIN 5.9 g/dL (6.4-8.2)
--- NOTE | 2020-08-22 15:49 | RAD ---
EXAMINATION: XR CHEST 1V CLINICAL HISTORY: Shortness of breath EXAM DATE/TIME: 08/22/2020 2:50 PM COMPARISON: None FINDINGS: Lines, Tubes, and Devices: None. Cardiomediastinal Silhouette: Normal heart size. Aortic atherosclerotic calcification. Lungs and Pleura: No evidence of focal airspace consolidation or pleural effusion. Pulmonary vasculat ure unremarkable. Bones and Soft Tissues: Degenerative changes of the thoracic spine. IMPRESSION: No evidence of acute cardiopulmonary abnormality. Electronically signed by: Tito Wallace DO (08/22/2020 3:46 PM) [id number]
[2020-08-22 18:17] LABS: BILIRUBIN,URINE NEG (NEG); CLARITY,URINE HAZY; COLOR,URINE YELLOW; GLUCOSE,URINE NEG (NEG); NITRITE,URINE NEG (NEG)
[2020-08-22 18:19] LABS: BACTERIA,URINE 0 /HPF (0-FEW); RBC,URINE 0 /HPF (0-2); SQUAMOUS EPITHELIAL CELL,UR MOD /LPF; WBC,URINE RARE /HPF (0-4)
[2020-08-22] MEDS: IPRATRPIUM/ALBUTEROL 0.5/2.5MG 3 ML NEBU. NEB SCH (20:00)
--- NOTE | 2020-08-22 21:00 | NUR ---
Patient arrived at unit around 2029 from ED, transported by telephone worker. Patient's vitals were within normal limits and patient interacted pleasantly with staff. Patient remained in her room and was placed on Airborne and Contact isolation for the moment as PUI, while awaiting results for COVID 19 test done at the ED today (72hrs expected turnover time)
--- NOTE | 2020-08-22 21:20 | NUR ---
pt wants to skip this tx and eat. She says she has not eaten since 2pm and is really hungry. BS are clear and decreased. She says that she taken her inhaler 2X today and is breathing fine. She says that she is understands that she can have a treatment if needed later.
[2020-08-22 23:00] VITALS: BP 108/70
--- NOTE | 2020-08-23 00:31 | NUR ---
Patient complained of headache/Migrane. Dr. Galaviz notified and a one time order for Tylenol was administered.
--- NOTE | 2020-08-23 00:46 | EKG ---
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
[2020-08-23] MEDS ORDERED: ACETAMINOPHEN 325 MG TABLET PO ONE (01:00)
[2020-08-23] MEDS: IPRATRPIUM/ALBUTEROL 0.5/2.5MG 3 ML NEBU. NEB SCH ×3 (05:10→21:46)
[2020-08-23] MEDS: ONDANSETRON PF 4 MG/2 ML VIAL. IVP PRN ×2 (08:37→08:41)
[2020-08-23 10:53] VITALS: BP 104/67
[2020-08-23] MEDS ORDERED: IPRATROPIUM/ALBUTEROL 20/100mcg/INH INHALER. INH SCH ×2 (12:00→16:00)
[2020-08-23] MEDS ORDERED: ONDANSETRON ODT 4 MG TAB.RAPDIS PO PRN (13:45)
[2020-08-23] MEDS: HYDROcodone/APAP 5/325MG 1 TAB TABLET PO PRN (14:02)
[2020-08-23] MEDS ORDERED: LEVOTHYROXINE 100 MCG TABLET PO ONE (14:45)
[2020-08-23] MEDS: LEVOTHYROXINE 100 MCG TABLET PO SCH (15:51)
[2020-08-23 15:55] VITALS: BP 100/64
--- NOTE | 2020-08-23 18:14 | HP ---
HISTORY OF PRESENT ILLNESS: The patient is a 65-year-old female patient who presented to the Emergency Room with a complaint of cough and shortness of breath that has been going on for almost a week now. She also complained that the cough was productive with yellowish to greenish sputum. She did complain of some chest discomfort and also has diarrhea, but denied any chills, rigors or fever. The patient is not vaccinated for COVID-19 by choice. She is known to have COPD and bronchial asthma and has been using her breathing treatment daily. She is also on oxygen at home at nighttime and recently was advised to use the oxygen continuously by the home health nurse over the last few days. She denied any fever, chills or rigors. She was extensively investigated in the Emergency Room and has had lab work. Her white cell count was normal. Her chemistry was unremarkable. She has had a chest x-ray which showed that the patient has the cardiomediastinal silhouette, normal heart size, aortic atherosclerosis calcification. The lungs and pleura have no evidence of focal airspace consolidation or pleural effusion. Pulmonary vasculature is unremarkable. Bones and soft tissues are unremarkable and the patient was admitted with diagnosis of COPD exacerbation. She was treated with steroids as well as albuterol and Atrovent and was admitted for further evaluation and treatment. 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 She has hypercholesterolemia, chronic obstructive pulmonary disease, hypothyroidism, glaucoma, history of diverticulitis, urinary incontinence, fibromyalgia, osteoarthritis and osteoporosis, depression, anxiety, tobacco abuse. She quit smoking only about a week ago. PAST SURGICAL HISTORY: Significant for tonsillectomy. She also has left heart catheterization, , hysterectomy as well as breast reduction surgeries. ALLERGIES: SHE IS ALLERGIC TO BETA ADRENERGIC BLOCKERS, PENICILLIN, XANAX, ATORVASTATIN, FLUTICASONE, METOCLOPRAMIDE, ORANGE JUICE, PROPRANOLOL, CRESTOR AND TRAMADOL. SOCIAL HISTORY: She apparently lives with her daughter. She continued to smoke and quit smoking only about a week ago. She has about 40-50 pack year history of smoking. Denied any alcohol or drug use. She is a full code. REVIEW OF SYSTEMS: As per history of present illness. PHYSICAL EXAMINATION: GENERAL: On arrival to the Emergency Room, the patient was slightly tachypneic, but there was no pallor, jaundice, cyanosis, no lymphadenopathy, no thyromegaly, no jugular venous distention. No limb edema. VITAL SIGNS: Her heart rate was 98, blood pressure is 116/70, temperature was 98.3, respiratory rate was 16 and oxygen saturation was 93% on room air. HEAD, EYES, EARS, NOSE, AND THROAT: Normocephalic, atraumatic. NECK: Supple. HEART: Showed normal first and second heart sounds, no gallop, rub or murmur. CHEST: Clear to auscultation, no crepitation or rhonchi. ABDOMEN: Distended, soft, nontender. NEUROLOGIC: She is awake, alert, responding appropriately. All cranial nerves intact. She moves extremities without difficulty. LABORATORY DATA: On arrival showed a white cell count 7500, hemoglobin 12, hematocrit 36, MCV 94 and platelet count 212,000. Her chemistry showed a serum sodium of 145, potassium 3.8, chloride 107, bicarbonate 31, anion gap of 7, BUN 12, creatinine 0.9. Estimated GFR was 62 mL per minute. Her glucose was 98, calcium was 9.2. Total bilirubin, AST, ALT, alkaline phosphatase were normal. Total protein was 5.9, albumin was 3.3. Urinalysis showed the urine was yellow, hazy with a pH of 7, specific gravity of 1.025. The urine was negative for protein, glucose, ketones, trace amount of blood, negative for nitrite and bilirubin, trace of leukocyte esterase, 0 RBCs, very rare WBCs, moderate amount of squamous epithelial cells and 0 bacteria. Her chest x-ray showed that the cardiomediastinal silhouette is normal. There is aortic atherosclerotic calcification. Lungs and pleura, no evidence of focal airspace consolidation or pleural effusion. Pulmonary vasculature were unremarkable. Bones and soft tissues, degenerative changes of the thoracic spine. ASSESSMENT AND PLAN: The patient was admitted with COPD exacerbation. She will reconcile all other medication. We will continue with steroids and bronchodilators and we will monitor her closely. She sees actually Dr. Spears so we will contact his office to take over her care. MIK/CHRISTINE/IQB DR: MIK/silas TID: [id number]
[2020-08-23 19:09] VITALS: BP 95/59
[2020-08-23] MEDS: ATORVASTATIN CALCIUM 20 MG TABLET PO SCH ×2 (21:00→21:45)
[2020-08-23] MEDS: DOXYCYCLINE HYCLATE 100 MG TABLET PO SCH (21:44)
[2020-08-23] MEDS: BENZONATATE 100 MG CAPSULE. PO SCH (21:44)
[2020-08-23] MEDS: BACLOFEN 20 MG TABLET PO SCH (21:45)
[2020-08-23] MEDS: methylPREDNISolone SOD SUCC PF 40 MG/ML VIAL. IV SCH (21:45)
[2020-08-23] MEDS: LACTOBACILLUS RHAMNOSUS GG 1 CAPSULE. PO SCH (21:45)
[2020-08-23] MEDS: VENLAFAXINE 50 MG TABLET. PO SCH (21:57)
[2020-08-23] MEDS: diazePAM 5 MG TABLET. PO PRN (21:57)
[2020-08-23] MEDS: LATANOPROST 0.005% OPHTH SOLUTION 2.5ML BOTTLE. OU SCH (22:24)
[2020-08-23 23:48] VITALS: BP 105/65
[2020-08-24] MEDS: LEVOTHYROXINE 100 MCG TABLET PO SCH (05:03)
[2020-08-24] MEDS: methylPREDNISolone SOD SUCC PF 40 MG/ML VIAL. IV SCH ×3 (05:04→22:14)
[2020-08-24] MEDS: IPRATRPIUM/ALBUTEROL 0.5/2.5MG 3 ML NEBU. NEB SCH ×4 (05:09→21:38)
[2020-08-24 06:36] VITALS: BP 117/74
--- NOTE | 2020-08-24 06:36 | NUR ---
Nursing note: Pt refused lipitor at HS because she stated she is "extremely allergic--I could ".
[2020-08-24 07:38] LABS: BASO % 0 % (0-3); EOS % 0 % (0-3); HEMATOCRIT 33.8 % (36.0-47.0); HEMOGLOBIN 10.9 g/dL (12.0-15.5); LYMPH # 0.4 x10^3/uL (1.0-4.8); LYMPH % 5 % (24-48); MEAN CORPUSCULAR HEMOGLOBIN 31 pg (25-35); MEAN CORPUSCULAR HGB CONC 32 g/dL (31-37); MEAN CORPUSCULAR VOLUME 94 fL (79-100); MONO # 0.1 x10^3/uL (0.0-1.1); MONO % 1 % (0-9); NEUT # 8.6 x10^3uL (1.8-7.7); NEUT % 94 % (31-73); PLATELET COUNT 218 x10^3/uL (140-400); RED BLOOD COUNT 3.58 x10^6/uL (3.50-5.40); RED CELL DISTRIBUTION WIDTH 15.9 % (11.5-14.5); WHITE BLOOD COUNT 9.1 x10^3/uL (4.0-11.0)
[2020-08-24 07:50] LABS: CALCIUM 8.8 mg/dL (8.5-10.1); CREATININE 0.9 mg/dL (0.6-1.0); GFR 62.5; POTASSIUM 4.3 mmol/L (3.5-5.1); TOTAL BILIRUBIN 0.1 mg/dL (0.2-1.0)
[2020-08-24] MEDS: CLOPIDOGREL BISULFATE 75 MG TABLET PO SCH (07:50)
[2020-08-24] MEDS: DOXYCYCLINE HYCLATE 100 MG TABLET PO SCH ×2 (07:50→21:21)
[2020-08-24] MEDS: EZETIMIBE 10 MG TABLET PO SCH (07:50)
[2020-08-24] MEDS: PANTOPRAZOLE 40 MG TABLET. PO SCH (07:50)
[2020-08-24] MEDS: BACLOFEN 20 MG TABLET PO SCH ×2 (07:50→21:21)
[2020-08-24] MEDS: FAMOTIDINE 20 MG TABLET PO SCH (07:50)
[2020-08-24] MEDS: LACTOBACILLUS RHAMNOSUS GG 1 CAPSULE. PO SCH ×2 (07:51→21:21)
[2020-08-24] MEDS: BENZONATATE 100 MG CAPSULE. PO SCH ×3 (07:51→21:21)
[2020-08-24] MEDS: HYDROcodone/APAP 5/325MG 1 TAB TABLET PO PRN ×3 (07:51→21:45)
[2020-08-24] MEDS: LOSARTAN 25 MG TABLET. PO SCH ×2 (07:51→07:53)
[2020-08-24] MEDS: VENLAFAXINE 50 MG TABLET. PO SCH ×3 (07:52→21:21)
[2020-08-24 10:45] VITALS: BP 103/64
--- NOTE | 2020-08-24 11:23 | PN ---
DATE: 08/23/2020 SUBJECTIVE: The patient is resting, slightly propped up in bed, in no apparent respiratory distress. She is awake, alert, somewhat confused. She is maintaining her oxygen saturation at 96% on room air. While I examined her today, she was having recurrent episodes of cough that is productive with yellowish to greenish sputum according to her. She did complain of some chest discomfort. OBJECTIVE: GENERAL: When I examined her, she looked well and was clearly in no apparent respiratory distress. No pallor, jaundice, cyanosis or thyromegaly. No jugular venous distention. No limb edema. VITAL SIGNS: Her heart rate was 106, blood pressure was 104/67, temperature was 98.3, respiratory rate was 16 and oxygen saturation was 93% on room air. HEAD, EYES, EARS, NOSE AND THROAT: Normocephalic, atraumatic. NECK: Supple. HEART: Normal first and second heart sounds. No gallop, rub or murmur. CHEST: Clear to auscultation. Few bilateral basal crepitation. I could not appreciate any rhonchi. ABDOMEN: Slightly distended, soft, nontender. NEUROLOGIC: She was awake, alert, but somewhat confused. All her cranial nerves intact. She has what seemed to be mild left-sided residual weakness. Her intake and output are incompletely recorded. LABORATORY DATA: She has no lab work done this morning. ASSESSMENT AND PLAN: Chronic obstructive pulmonary exacerbation. She has also probably acute bronchitis with yellowish to greenish sputum, although chest x-ray was unremarkable. Obviously I reconciled all her medications, started on steroids as well as bronchodilators in the form of Combivent Respimat. I personally do not see any reason why she should be on isolation as apart from cough, she does not have any other reason to suspect COVID-19; however, she is already now in isolation. We have already contacted Dr. Spears to take over her care. My recommendation is probably start her on doxycycline for her acute bronchitis. I will obviously leave that decision to Dr. Spears, but I already put order for that. SARAHI DUTTA: Galen TID: [id number]
[2020-08-24 14:55] VITALS: BP 102/64
--- NOTE | 2020-08-24 18:13 | NUR ---
Nursing Note Pt in bed upon arrival. Pt complained of a headache all day requesting hydrocodone and valium, whichever available at the time. Pt visited with family. Pt took a 6 minute walking test and qualified for home oxygen upon discharge. Pt stated pain was about an 8 all day. Pt alert, cooperative, and very involved in the medicines she was receiving. Pt received a shower today.
[2020-08-24 19:54] VITALS: BP 99/63
[2020-08-24] MEDS: ATORVASTATIN CALCIUM 20 MG TABLET PO SCH (21:00)
[2020-08-24] MEDS: LATANOPROST 0.005% OPHTH SOLUTION 2.5ML BOTTLE. OU SCH (21:00)
[2020-08-24] MEDS: diazePAM 5 MG TABLET. PO PRN (21:21)
--- NOTE | 2020-08-25 02:12 | PN ---
DATE: 08/24/2020 SUBJECTIVE: The patient is sitting in the edge of the bed comfortably, in no apparent distress. She continued to have cough with greenish sputum and continued to complain of shortness of breath. Her oxygen saturation is 93-94% on room air; however, she dropped down to 75% on exertion. PHYSICAL EXAMINATION: GENERAL: When I examined her this afternoon, she looked well and was clearly in no apparent respiratory distress. Pale. No jaundice, cyanosis, no lymphadenopathy, no thyromegaly, no jugular venous distention. No lower limb edema. VITAL SIGNS: Her heart rate was 99, blood pressure is 102/64, temperature was 97.6, respiratory rate 22, and oxygen saturation was 93% on room air. HEAD, EYES, EARS, NOSE AND THROAT: Normocephalic, atraumatic. NECK: Supple. HEART: Showed normal first and second heart sound, no gallop, rub or murmur. CHEST: Shows central trachea, equal bilateral expansion, air entry, vesicular breath sounds. There are few crepitation. I could not appreciate any rhonchi. ABDOMEN: Distended, soft, nontender. NEUROLOGIC: She was confused, but without any obvious lateralizing sign. Her intake and output are incompletely recorded. LABORATORY DATA: This morning showed a white cell count of 9000, hemoglobin 11, hematocrit 33, MCV 94, platelet count 218,000. Serum sodium 145, potassium 4.3, chloride 107, bicarbonate 31, anion gap of 7, BUN 17, creatinine 0.9. Estimated GFR was 62 mL per minute. Her glucose 166, calcium was 8.8. Total bilirubin, AST, ALT, alkaline phosphatase were normal. Total protein 6, albumin was 3. ASSESSMENT: 1. Acute bronchitis. 2. Chronic obstructive pulmonary disease exacerbation. 3. 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 She quit smoking only about a week ago. PLAN: My plan is to continue with steroids. Continue with doxycycline. Continue with all other medication and she will be discharged tomorrow home. VALERIE DR: Galen TID: [id number]
[2020-08-25] MEDS: LEVOTHYROXINE 100 MCG TABLET PO SCH (05:33)
[2020-08-25] MEDS: methylPREDNISolone SOD SUCC PF 40 MG/ML VIAL. IV SCH (05:33)
[2020-08-25] MEDS: IPRATRPIUM/ALBUTEROL 0.5/2.5MG 3 ML NEBU. NEB SCH ×2 (05:35→10:33)
[2020-08-25 05:45] VITALS: BP 124/66
[2020-08-25] MEDS: PANTOPRAZOLE 40 MG TABLET. PO SCH (07:09)
[2020-08-25 08:54] VITALS: BP 124/66
[2020-08-25] MEDS: LACTOBACILLUS RHAMNOSUS GG 1 CAPSULE. PO SCH (08:54)
[2020-08-25] MEDS: BACLOFEN 20 MG TABLET PO SCH (08:54)
[2020-08-25] MEDS: BENZONATATE 100 MG CAPSULE. PO SCH (08:54)
[2020-08-25] MEDS: CLOPIDOGREL BISULFATE 75 MG TABLET PO SCH (08:54)
[2020-08-25] MEDS: LOSARTAN 25 MG TABLET. PO SCH (08:54)
[2020-08-25] MEDS: FAMOTIDINE 20 MG TABLET PO SCH (08:54)
[2020-08-25] MEDS: DOXYCYCLINE HYCLATE 100 MG TABLET PO SCH (08:54)
[2020-08-25] MEDS: VENLAFAXINE 50 MG TABLET. PO SCH (08:54)
[2020-08-25] MEDS: EZETIMIBE 10 MG TABLET PO SCH (08:55)
--- NOTE | 2020-08-25 14:56 | NUR ---
Pt discharged at 1445 via wheelchair accompanied by family member. pt given written and verbal instructions with verbal statement of understanding received.
--- NOTE | 2020-08-25 20:28 | DS ---
DATE OF DISCHARGE: 08/25/2020 HOSPITAL COURSE: The patient is a 65-year-old female patient who was admitted to [facility] through the Emergency Department with a complaint of cough and shortness of breath that has been going on for almost a week now. She complained that the sputum is yellowish to greenish in color and did complain of some chest discomfort and also diarrhea, but denied any chills, rigors or fever. The patient was not vaccinated for COVID-19 by choice. She is known to have COPD and bronchial asthma and has been using her breathing treatment daily. She is also on oxygen at home at nighttime and recently was advised to use the oxygen continuously by home health nurse. She was extensively investigated in the Emergency Room and has had lab work. Her white cell count was normal. Her chemistry was unremarkable. Chest x-ray which showed that she has no evidence of consolidation or pleural effusion. The patient was admitted with a diagnosis of COPD exacerbation. She was treated with steroids and added doxycycline. Her urine also has grown 80,000 units of gram-positive cocci identified as Enterococcus faecium sensitive to doxycycline. As she remained hemodynamically stable, afebrile, cough is much improved as well as shortness of breath, a decision was made to discharge her home to continue with tapering course of steroids as well as doxycycline. PHYSICAL EXAMINATION: GENERAL: When I saw her today, she was sitting in the bed comfortably, in no apparent respiratory distress. She was pale, but not jaundiced, cyanosed. No thyromegaly. No jugular venous distention. No lower limb edema. VITAL SIGNS: Her heart rate was 89, blood pressure is 124/66, temperature was 98.2, respiratory rate 20, and oxygen saturation was 96% on room air. HEAD, EYES, EARS, NOSE, AND THROAT: Normocephalic, atraumatic. NECK: Supple. HEART: Normal first and second heart sounds, no gallop or murmur. CHEST: Clear to auscultation, no crepitation or rhonchi. ABDOMEN: Distended, soft, nontender. NEUROLOGIC: Grossly intact. LABORATORY DATA: Showed a serum sodium 145, potassium 4.3, chloride 107, bicarbonate 31, anion gap of 7, BUN 17, creatinine 0.9. Estimated GFR was 63 mL per minute. Her glucose 166, calcium was 8.8. Total bilirubin, AST, ALT, alkaline phosphatase were normal. White cell count was 9000, hemoglobin 11, hematocrit 33, MCV 94 and platelet count 218,000. Her coronavirus by PCR was negative. Urinalysis showed that the patient has rare wbc's; however, her urine culture has grown Enterococcus faecium sensitive to tetracycline. DISCHARGE MEDICATIONS: She was discharged home to continue on baclofen 20 mg b.i.d., Plavix 75 mg once a day, diazepam 5 mg twice a day, Zetia 10 mg once a day, famotidine 20 mg once a day, hydrocodone/APAP 5/25 one tablet every 6 hours, latanoprost one drop to both eyes at bedtime, levothyroxine sodium 100 mcg once a day, losartan potassium 25 mg once a day, ondansetron ODT 4 mg every 8 hours, Protonix 40 mg once a day, Crestor 20 mg at bedtime, tiotropium bromide/olodaterol 2 puffs daily, venlafaxine 150 mg once a day. She was also discharged on a tapering course of steroids in the form of prednisone 40 mg once a day for 3 days, 30 mg once a day for 3 days, 20 mg once a day for 3 days, then 10 mg once a day for 3 days; doxycycline 100 mg twice a day for 7 days as well as Tessalon Perles 100 mg 3 times a day for 10 days. I gave her a prescription for hydrocodone/APAP 5/325 as well as diazepam enough for 2 weeks. Advised her that I cannot prescribe them electronically and she [place] to [facility] to have them filled. FINAL DISCHARGE DIAGNOSES: 1. Acute bronchitis. 2. Chronic obstructive pulmonary disease exacerbation. 3. Benign essential tremors. 4. Left-sided residual weakness due to a right middle cerebral artery territory infarct. 5. Peripheral neuropathy. 6. Hypercholesterolemia. 7. Hypothyroidism. 8. Glaucoma. 9. Urinary incontinence. 10. Fibromyalgia. 11. Osteoarthritis and osteoporosis. 12. Anxiety and depression. 13. Continued tobacco abuse. MIK/MARY KATE DR: Galen TID: [id number]
== END 2020-08-25 16:02 | disposition home or self-care (01) | DRG 191 ==
LOC: ER 14:36 → 1 SOUTH 18:10
PROVIDERS: ADMIT Internal Medicine; ATTEND Internal Medicine
DX: J44.0 Chronic obstructive pulmonary disease with (acute) lower respiratory infection (principal); I69.954 Hemiplegia and hemiparesis following unspecified cerebrovascular disease affecting left non-dominant side; J20.9 Acute bronchitis, unspecified; J44.1 Chronic obstructive pulmonary disease with (acute) exacerbation; E03.9 Hypothyroidism, unspecified; E78.00 Pure hypercholesterolemia, unspecified; F32.9 Major depressive disorder, single episode, unspecified; F41.9 Anxiety disorder, unspecified; G25.0 Essential tremor; B95.2 Enterococcus as the cause of diseases classified elsewhere; Z20.822 Contact with and (suspected) exposure to COVID-19; G62.9 Polyneuropathy, unspecified; H40.9 Unspecified glaucoma; M19.90 Unspecified osteoarthritis, unspecified site; M79.7 Fibromyalgia; M81.0 Age-related osteoporosis without current pathological fracture; R32 Unspecified urinary incontinence; Z90.710 Acquired absence of both cervix and uterus; Z99.81 Dependence on supplemental oxygen; Z87.440 Personal history of urinary (tract) infections; Z88.0 Allergy status to penicillin; Z88.8 Allergy status to other drugs, medicaments and biological substances
CPT/HCPCS: 36415; 71045; 80053; 81001; 84484; 85025; 87077; 87086; 87186; 93005; 94618; 94640; 96374; J2405; J2920; J2930; U0003; 99285-25

== ENCOUNTER 2020-11-07 18:49 | Inpatient (IN) | payer MEDICARE, MEDICAID ==
[~2020-11-07] VITALS: Ht 154.9 cm; Wt 61.5 kg
--- NOTE | 2020-11-07 19:41 | PHYS DOC ---
Past History Past Medical History: COPD, Stroke, UTI Additional Past Medical Histor: Chronic back issues, bronchial pneumonia Past Surgical History: Hysterectomy Alcohol Use: None Drug Use: None Adult General Chief Complaint Chief Complaint: SHORTNESS OF BREATH HPI HPI Patient is a 65-year-old female with a past medical history significant for COPD who presents to the emergency department with a chief complaint of increased shortness of breath, cough and mucus production over the last week. Denies any recent traumas, travels, illnesses, fevers, chest pain, abdominal pain, nausea, vomiting, dysuria, hematuria or blood in the stool. States has been taking all her medications as prescribed. States she went to the urgent care/primary care earlier today and was directed to the ED. States that even after taking a few steps she feels short of breath. Review of Systems Review of Systems Review of systems otherwise unremarkable except noted in HPI Allergies Allergies Allergies Coded Allergies Type Severity Reaction Last Updated Verified Beta-Blockers (Beta-Adrenergic Bloc Allergy Severe 06/06/20 Yes orange juice Allergy Severe Swelling 06/06/20 Yes rosuvastatin Allergy Severe patient states crestor seals throat shut 06/06/20 Yes Penicillins Allergy Intermediate 06/06/20 Yes fluticasone Allergy Intermediate 06/06/20 Yes propranolol Allergy Intermediate 06/06/20 Yes metoclopramide Allergy Unknown 06/06/20 Yes alprazolam Adverse Reaction Intermediate 06/06/20 Yes atorvastatin Adverse Reaction Intermediate 06/06/20 Yes tramadol Adverse Reaction Intermediate 06/06/20 Yes sertraline Adverse Reaction Unknown 06/06/20 Yes Physical Exam Physical Exam Constitutional: Well developed, well nourished, no acute distress, non-toxic appearance. [] HENT: Normocephalic, atraumatic, bilateral external ears normal, oropharynx moist, no oral exudates, nose normal. [] Eyes: conjunctiva normal, no discharge. [] Neck: Normal range of motion, no tenderness, supple, no stridor. [] Cardiovascular: Sinus tachycardia Lungs & Thorax: Bilateral, global mild rhonchi with end expiratory wheezing Abdomen: soft, no tenderness, no masses, no pulsatile masses. [] Skin: Warm, dry, no erythema, no rash. [] Back: no CVA tenderness. [] Extremities: No tenderness, no cyanosis, no clubbing, ROM intact, no edema. [] Neurologic: Alert and oriented X 3, normal motor function, normal sensory function, no focal deficits noted. [] Psychologic: Affect normal, judgement normal, mood normal. [] Current Patient Data Vital Signs Vital Signs Date Time Temp Pulse Resp B/P (MAP) Pulse Ox O2 Delivery O2 Flow Rate FiO2 11/07/20 19:00 98.3 97 20 116/80 (92) 96 EKG EKG [] Radiology/Procedures Radiology/Procedures [] Heart Score C/O Chest Pain: No Risk Factors: Risk Factors: DM, Current or recent (<one month) smoker, HTN, HLP, family history of CAD, obesity. Risk Scores: Risk Factors: DM, Current or recent (<one month) smoker, HTN, HLP, family history of CAD, obesity. Course & Med Decision Making Course & Med Decision Making Patient is a 65-year-old female who presents with a chief complaint of shortness of breath over the last week Vital signs notable for tachypnea and if walked patient's O2 saturation dropped to about 88% and comes back up if she lies still and does not talk. Patient not on oxygen at home. EKG with a rate of 106, QRS of 84, QTc of 472, no STEMI. Laboratory analysis not concerning. Patient does desat when walking and becomes tachypneic. Given steroids, breathing treatment and started on doxycycline. Discussed findings with patient and recommended admission to [facility] for continued evaluation treatment of COPD exacerbation. Patient grateful, verbalized understanding and agreed with plan of admission. Dragon Disclaimer Dragon Disclaimer This electronic medical record was generated, in whole or in part, using a voice recognition dictation system. Departure Departure: Impression: Primary Impression: COPD exacerbation Disposition: ADMITTED INPATIENT Admitting Physician: Codey Kiser Condition: STABLE Referrals: SHELBY GAMBOA MD (PCP) CHLOE SALAZAR MD Nov 07, 2020 19:41
[2020-11-07] MEDS ORDERED: DEXAMETHASONE 4 MG TABLET PO ONE (20:15)
[2020-11-07] MEDS ORDERED: IPRATRPIUM/ALBUTEROL 0.5/2.5MG 3 ML NEBU. NEB ONE (20:15)
[2020-11-07 20:49] LABS: BASO % 1 % (0-3); EOS # 0.1 x10^3/uL (0.0-0.7); EOS % 1 % (0-3); HEMATOCRIT 34.4 % (36.0-47.0); HEMOGLOBIN 11.3 g/dL (12.0-15.5); LYMPH # 1.4 x10^3/uL (1.0-4.8); LYMPH % 18 % (24-48); MEAN CORPUSCULAR HEMOGLOBIN 30 pg (25-35); MEAN CORPUSCULAR HGB CONC 33 g/dL (31-37); MEAN CORPUSCULAR VOLUME 90 fL (79-100); MONO # 0.8 x10^3/uL (0.0-1.1); MONO % 11 % (0-9); NEUT # 5.4 x10^3uL (1.8-7.7); NEUT % 70 % (31-73); PLATELET COUNT 301 x10^3/uL (140-400); RED BLOOD COUNT 3.82 x10^6/uL (3.50-5.40); RED CELL DISTRIBUTION WIDTH 15.4 % (11.5-14.5); WHITE BLOOD COUNT 7.8 x10^3/uL (4.0-11.0)
[2020-11-07 21:58] LABS: CALCIUM 9.5 mg/dL (8.5-10.1); CREATININE 0.7 mg/dL (0.6-1.0); GFR 83.5; MAGNESIUM 2.1 mg/dL (1.8-2.4)
[2020-11-07 21:59] LABS: POTASSIUM 2.7 mmol/L (3.5-5.1)
[2020-11-07] MEDS ORDERED: DOXYCYCLINE HYCLATE 100 MG TABLET PO ONE (22:00)
--- NOTE | 2020-11-07 22:09 | RAD ---
XR CHEST 1V History: Reason: sob / Spl. Instructions: / History: Comparison: August 22, 2020 Findings: Hyperflexion. No consolidation or pleural effusion. Normal heart size. No pneumothorax. Impression: 1. Hyperinflation. No new consolidation. Electronically signed by: Gabriel Roldan DO (11/07/2020 10:07 PM) [facility]
[2020-11-07] MEDS ORDERED: POTASSIUM CHLORIDE 20 MEQ TABLET.ER. PO ONE (23:30)
[2020-11-07 23:31] LABS: BACTERIA,URINE 0 /HPF (0-FEW); BILIRUBIN,URINE MOD (NEG); CLARITY,URINE CLEAR; COLOR,URINE YELLOW; GLUCOSE,URINE NEG (NEG); NITRITE,URINE NEG (NEG); RBC,URINE 0 /HPF (0-2); SQUAMOUS EPITHELIAL CELL,UR MOD /LPF
--- NOTE | 2020-11-08 00:56 | NUR ---
The patient, YEN BELLE, 65 y/o, F admitted by BENITA BARTLETT MD, was given written information regarding hospital policies, unit procedures and contact persons. Valuables were checked and logged. Call light at bedside.
[2020-11-08] MEDS ORDERED: HYDROCORTISONE SOD SUCC/PF 100 MG/2 ML VIAL. IVP ONE ×2 (01:00)
[2020-11-08 01:05] VITALS: BP 113/73
[2020-11-08] MEDS: HYDROcodone/APAP 5/325MG 1 TAB TABLET PO PRN ×3 (03:05→17:21)
[2020-11-08] MEDS ORDERED: FAMO20TA5 PO (03:33)
[2020-11-08 06:20] LABS: BASO % 0 % (0-3); EOS % 0 % (0-3); HEMATOCRIT 32.6 % (36.0-47.0); HEMOGLOBIN 10.8 g/dL (12.0-15.5); LYMPH # 0.3 x10^3/uL (1.0-4.8); LYMPH % 6 % (24-48); MEAN CORPUSCULAR HEMOGLOBIN 30 pg (25-35); MEAN CORPUSCULAR HGB CONC 33 g/dL (31-37); MEAN CORPUSCULAR VOLUME 90 fL (79-100); MONO # 0.1 x10^3/uL (0.0-1.1); MONO % 1 % (0-9); NEUT # 5.2 x10^3uL (1.8-7.7); NEUT % 92 % (31-73); PLATELET COUNT 295 x10^3/uL (140-400); RED BLOOD COUNT 3.63 x10^6/uL (3.50-5.40); RED CELL DISTRIBUTION WIDTH 15.1 % (11.5-14.5); WHITE BLOOD COUNT 5.6 x10^3/uL (4.0-11.0)
[2020-11-08 06:29] LABS: CALCIUM 9.4 mg/dL (8.5-10.1); CREATININE 0.7 mg/dL (0.6-1.0); GFR 83.5; POTASSIUM 3.7 mmol/L (3.5-5.1)
[2020-11-08 06:36] LABS: ALBUMIN 2.7 g/dL (3.4-5.0); DIRECT BILIRUBIN 0.1 mg/dL (0.0-0.2); TOTAL BILIRUBIN 0.2 mg/dL (0.2-1.0)
[2020-11-08 06:38] VITALS: BP 92/69
[2020-11-08] MEDS ORDERED: CYAN-25 PO (06:57)
[2020-11-08] MEDS ORDERED: HYDROCORTISONE SOD SUCC/PF 100 MG/2 ML VIAL. IVP SCH (07:00)
--- NOTE | 2020-11-08 07:14 | EKG ---
[address] [address] Test Date: 2020-11-07 Test Time: 19:59:46 Pat Name: YEN BELLE Department: Room: [facility] 1 Gender: F Product Mgr: TEENA : 1955 Requested By: CHLOE SALAZAR Order Number: [id number] Reading MD: Tucker Andrews Measurements Intervals [place] Rate: 106 P: 48 IA: 116 QRS: 66 QRSD: 84 T: 54 QT: 354 QTc: 472 Interpretive Statements SINUS TACHYCARDIA Electronically Signed On 11-17-2020 17:01:12 CDT by Tucker Andrews
[2020-11-08] MEDS: IPRATROPIUM/ALBUTEROL 20/100mcg/INH INHALER. INH SCH ×4 (08:00→20:00)
[2020-11-08] MEDS ORDERED: IPRATRPIUM/ALBUTEROL 0.5/2.5MG 3 ML NEBU. NEB SCH (08:00)
[2020-11-08] MEDS: HYDROcodone/CHLORPHEN POLIS 5 ML SUS.ER.12H PO PRN ×2 (09:25→21:14)
--- NOTE | 2020-11-08 09:43 | HP ---
ATTENDING PHYSICIAN: Dr. Kiser. CHIEF COMPLAINT: Shortness of breath and weakness. HISTORY OF PRESENT ILLNESS: The patient is a 65-year-old female who is very frail with multiple medical issues. She is now living with her daughter. She cannot care for herself at home. Daughter lives in town. She has a doctor in [facility]. He is not on staff here. She was admitted with weakness, shortness of breath. Her COVID swab is still pending. She had a chest x-ray which showed no acute infiltrate, advanced COPD. Unfortunately, she continues to smoke. She has marginal saturations and gets profoundly desaturated with any exertion. She was given Solu-Cortef as well as a breathing treatment. She is admitted then with exacerbation of chronic obstructive pulmonary disease and acute on chronic respiratory failure. PAST MEDICAL HISTORY: Significant for stroke 2 years ago. She has seasonal allergies. She has multi-infarct dementia with encephalopathy, frequent UTIs, COPD, bronchitis and generalized debilitation. She ambulates with the help of a walker. ALLERGIES: SHE HAS MULTIPLE ALLERGIES INCLUDING BETA BLOCKERS, PENICILLIN, XANAX, LIPITOR, FLUTICASONE, METOCLOPRAMIDE, ORANGE JUICE, PROPRANOLOL, SERTRALINE AND TRAMADOL, reaction to these is clearly unclear and she is a very poor historian CURRENT SCHEDULED MEDICATIONS: Include Plavix, vitamin B12, diazepam, Zetia, famotidine, hydrocodone p.r.n., Xalatan eyedrops, Synthroid, losartan, Protonix, Crestor, Spiriva, and Effexor. SOCIAL HISTORY: She is a smoker. No drinking history. FAMILY HISTORY: Unobtainable. REVIEW OF SYSTEMS: Significant for the dyspnea with minimal exertion. No fevers, no COVID exposures, but unfortunately she has not been vaccinated. She has been offered the vaccine, she has declined. I had a chance to talk with the daughter and they are against getting the vaccines, which I think is a mistake, but we cannot force the vaccine on people who do not want it. Her review of system as noted, no COVID exposure, no fevers. Her initial swab was negative. PHYSICAL EXAMINATION: GENERAL: When I saw her, this is a pleasantly confused female who was unable to give much history. She is confused. VITAL SIGNS: Initial vital signs showed a blood pressure of 113/73, her pulse was 74 and regular, oxygen saturation 93% on room air. She is afebrile. HEENT: Head is without trauma. Pupils are reactive. Sclerae nonicteric. Oropharynx is clear. NECK: Supple, no bruits. LUNGS: Diffuse wheezing bilaterally. CARDIOVASCULAR: Showed regular heart tones. No gallops. ABDOMEN: Soft. EXTREMITIES: Without edema. NEUROLOGIC: Pleasantly confused. PERTINENT LABORATORY STUDIES: Admission hemoglobin was 11.3 g/dL with a white count of 7800. Chemistry panel showed potassium 2.7, replaced up, repeated was 3.7; creatinine is 0.7 mg percent. Cardiac enzymes are negative for coronary ischemia. Urinalysis showed increased specific gravity, but no obvious infection. Serology: The rapid SARS swab was negative. The PCR is pending. Chest x-ray as noted, no acute infiltrates, hyperexpansion, COPD changes. ASSESSMENT: 1. A 65-year-old female with acute on chronic respiratory failure. 2. Exacerbation of chronic obstructive pulmonary disease. 3. Stroke. 4. Multi-infarct dementia. 5. Generalized debilitation. 6. Hypothyroidism. 7. Neurologic deficits related to stroke. PLAN: 1. Admit to the inpatient unit. 2. Telemetry monitoring. 3. Nebulizer therapy. 4. Intravenous steroids. KIRSTY DR: Mouna TID: [id number]
[2020-11-08] MEDS ORDERED: diazePAM 5 MG TABLET. PO PRN (10:45)
[2020-11-08] MEDS: LOSARTAN 25 MG TABLET. PO SCH (11:00)
[2020-11-08] MEDS: VENLAFAXINE 50 MG TABLET. PO SCH ×3 (11:17→19:38)
[2020-11-08] MEDS: CLOPIDOGREL BISULFATE 75 MG TABLET PO SCH (11:17)
[2020-11-08] MEDS: LEVOTHYROXINE 100 MCG TABLET PO SCH (11:17)
[2020-11-08] MEDS: CYANOCOBALAMIN (VITAMIN B-12) 1,000 MCG TABLET. PO SCH (11:17)
[2020-11-08 11:38] VITALS: BP 99/50
[2020-11-08] MEDS: methylPREDNISolone SOD SUCC PF 40 MG/ML VIAL. IV SCH ×2 (15:05→21:47)
[2020-11-08 15:11] VITALS: BP 109/74
--- NOTE | 2020-11-08 16:50 | NUR ---
SHIFT NOTE Pt resting comfortably in room throughout day. Pt complained of neck and low back pain, meds given SEE EMAR. Pt confused at some points during shift but able to be redirected. Home meds continued by Dr. Kiser. Pt eager to get better and get rid of cough she has had for weeks. DC home tomorrow per Dr. Kiser. DASIA, RN
[2020-11-08 18:53] VITALS: BP 90/56
[2020-11-08] MEDS ORDERED: LATANOPROST 0.005% OPHTH SOLUTION 2.5ML BOTTLE. OU SCH (21:00)
[2020-11-08 23:00] VITALS: BP 108/73
[2020-11-09] MEDS: LEVOTHYROXINE 100 MCG TABLET PO SCH (06:24)
[2020-11-09] MEDS: methylPREDNISolone SOD SUCC PF 40 MG/ML VIAL. IV SCH (06:24)
[2020-11-09] MEDS: HYDROcodone/APAP 5/325MG 1 TAB TABLET PO PRN (06:34)
[2020-11-09 06:42] VITALS: BP 121/78
--- NOTE | 2020-11-09 08:33 | DS ---
DATE OF DISCHARGE: 11/09/2020 ATTENDING PHYSICIAN: Dr. Kiser. FINAL DISCHARGE DIAGNOSES: 1. Acute on chronic respiratory failure, improved. 2. Exacerbation of chronic obstructive pulmonary disease. 3. Old stroke. 4. Multi-infarct dementia. 5. Generalized debilitation. 6. Hypothyroidism, on replacement. 7. Significant neurologic deficits related to stroke. HISTORY AND PHYSICAL: The patient is a 65-year-old female, heavy smoker in the past. Continues to use tobacco products. She was admitted then with increasing shortness of breath, congestion and mild nonproductive cough. X-rays demonstrated no acute infiltrates. She was admitted for further treatment and evaluation. PHYSICAL EXAMINATION: Please see my dictated note. PERTINENT LABORATORY AND X-RAY STUDIES: Serology was negative for coronavirus. Hemoglobin on admission was 11.3 g/dL, white count 7800. Electrolytes: Sodium was 140, potassium 2.7 mEq, replaced up to 3.7 mEq. ____ Creatinine 0.7 mg/dL. Cardiac enzymes were negative. Total protein is 7. COURSE IN THE HOSPITAL: The patient was admitted. She was started on empiric nebulizer therapy, antibiotics and steroids. She did well. Her lungs were better and she had adequate saturation on room air. By the morning, the third hospital day, her blood pressure was stable. She was afebrile, oxygen saturation 94% on room air. Therefore, she was discharged home with 5 more days of cephalexin 500 mg p.o. t.i.d., prednisone 40 mg daily for 5 more days and then stop. We do not need to taper this on the schedule. In addition, she should continue her Plavix. B12, Valium p.r.n., Pepcid, hydrocodone p.r.n., latanoprost eyedrops, Synthroid, losartan, Protonix, Crestor, Spiriva, and Effexor doses unchanged. Her prognosis is guarded. Strong encouragement to avoid further tobacco use, whether or not she will quit smoking or vaping remains to be seen. She was discharged then from our hospital in stable condition with explicit drug and followup care. Total discharge time spent [address]: Mouna TID: [id number]
[2020-11-09] MEDS ORDERED: BENZOCAINE/MENTHOL LOZNGE 18'S BOX. PO PRN (09:15)
[2020-11-09 09:33] VITALS: BP 121/78
[2020-11-09] MEDS: CLOPIDOGREL BISULFATE 75 MG TABLET PO SCH (09:33)
[2020-11-09] MEDS: LOSARTAN 25 MG TABLET. PO SCH (09:33)
[2020-11-09] MEDS: VENLAFAXINE 50 MG TABLET. PO SCH (09:33)
[2020-11-09] MEDS: IPRATROPIUM/ALBUTEROL 20/100mcg/INH INHALER. INH SCH (09:33)
[2020-11-09] MEDS: CYANOCOBALAMIN (VITAMIN B-12) 1,000 MCG TABLET. PO SCH (09:33)
[2020-11-09] MEDS ORDERED: CEPH500C PO (09:40)
[2020-11-09] MEDS ORDERED: PRED20TA PO (09:40)
--- NOTE | 2020-11-09 10:21 | NUR ---
discharge note Pt discharged at 0955 via wheelchair accompanied by staff, pt given written and verbal instructions with verbal statement of understanding received
== END 2020-11-09 10:20 | disposition home or self-care (01) | DRG 189 ==
LOC: ER 19:21 → ICU 21:52 → 1 SOUTH 11-08 20:36
PROVIDERS: ADMIT Hospitalist; ATTEND Hospitalist
DX: J96.20 Acute and chronic respiratory failure, unspecified whether with hypoxia or hypercapnia (principal); J44.1 Chronic obstructive pulmonary disease with (acute) exacerbation; E03.9 Hypothyroidism, unspecified; F17.200 Nicotine dependence, unspecified, uncomplicated; I69.311 Memory deficit following cerebral infarction; Z20.822 Contact with and (suspected) exposure to COVID-19; F01.50 Vascular dementia, unspecified severity, without behavioral disturbance, psychotic disturbance, mood disturbance, and anxiety; Z90.710 Acquired absence of both cervix and uterus; Z87.440 Personal history of urinary (tract) infections; Z88.6 Allergy status to analgesic agent; Z88.0 Allergy status to penicillin; Z88.8 Allergy status to other drugs, medicaments and biological substances
CPT/HCPCS: 36415; 71045; 80048; 80076; 81001; 83735; 84484; 85025; 85379; 87426; 93005; 94640; J2920; J8540; U0003; 99285-25

== ENCOUNTER → 2021-07-08 | Outpatient (CLI) | payer MEDICARE, MEDICAID ==
[~2021-07-08] MED LIST changes: +CEPH500C PO; +CYAN-25 PO; -CYCL-331 PO; +CYCL10TA19 PO; -POTA8TAB PO; +POTA8TAB57 PO
--- NOTE | 2021-07-08 10:38 | RAD ---
CT THORAX WO History: Lung nodule follow-up. Comparison: CT thoracic spine 11/16/2020. Technique: Noncontrast CT of the chest. Findings: Normal caliber aorta with moderate atherosclerotic calcifications. Normal heart size. Mild coronary a rtery calcification. No pericardial effusion. There is no mediastinal adenopathy. The thyroid and esophagus are unremarkable. Partially visualized at the carotid bulb calcification. Moderate emphysematous changes in the lungs. Bilateral apical pleural-parenchymal nodularity. A right lower lobe 5 mm nodule is not significantly changed from comparison (axial image 57). Upper abdomen is within normal limits. Osseous structures are unremarkable. Impression: Right lower lobe 5 mm pulmonary nodule, not significantly changed from November 2020. Recommend follow-up according to 2017 Fleischner Society Guidelines for solid pulmonary nodules: <6 m m: In a low risk patient, no routine follow-up. In a high risk patient (history of smoking or other k nown risk factors), optional CT at 12 months. Certain paitents with suspicious nodule morphology, upp er lobe location, or both may warrant 12-month follow-up. Moderate emphysema and mild coronary artery calcification. ------ Exposure: One or more of the following individualized dose reduction techniques were utilized for thi s examination: 1. Automated exposure control 2. Adjustment of the mA and/or kV according to patient size 3. Use of iterative reconstruction technique. Electronically signed by: Kevin Krishnan MD (07/08/2021 10:35 AM) [id number]
== END ==
LOC: CT 09:21
PROVIDERS: ATTEND Family Medicine
DX: R91.1 Solitary pulmonary nodule (principal); J43.9 Emphysema, unspecified; I70.0 Atherosclerosis of aorta; I25.10 Atherosclerotic heart disease of native coronary artery without angina pectoris
CPT/HCPCS: 71250